=== PATIENT | female | born 1975 ===

== ENCOUNTER 2020-08-27 08:40 | Emergency (ER) | payer MEDICAID, SELFPAY ==
[2020-08-27 09:30] VITALS: BP 128/75; PULSE 89; RESP 16; TEMP 36.7; O2SAT 100; BMI 27.6
--- NOTE | 2020-08-27 09:42 | CT_ITS ---
EXAMINATION: CT ABDOMEN AND PELVIS WITH CONTRAST CLINICAL INFORMATION: Right upper quadrant abdominal pain COMPARISON: CT of the abdomen and pelvis 10/17/2018 TECHNIQUE: Multidetector volumetric images were obtained from the superior aspect of the liver through the pubic symphysis following administration 85 mL of Omnipaque 350 intravenous contrast. Sagittal and coronal reformatted images were obtained on the technologist's workstation. Oral contrast: No This CT examination was performed using dose optimization techniques as appropriate, variously including the following: *Automated exposure control *Adjustment of mA and/or kV according to patient size (this includes techniques or standardized protocols for targeted exams where dose is matched to indication/reason for exam; i.e. extremities or head) *Use of iterative reconstruction technique DLP: 526 mGy-cm FINDINGS: LUNG BASES: The visualized lung bases are unremarkable. LIVER, GALLBLADDER, AND BILIARY TREE: The liver is normal in size, shape, and attenuation. No focal hepatic lesion or biliary ductal dilatation is present. The gallbladder is unremarkable with no evidence of radiopaque gallstones, gallbladder wall thickening, or obvious pericholecystic inflammatory changes. PANCREAS: Unremarkable. SPLEEN: Unremarkable. ADRENAL GLANDS: Again demonstrated are 2 fat-containing left adrenal nodules, one of which measures 2.1 cm and the other measures 1.8 cm, similar in appearance to the prior study. The right adrenal gland is normal. KIDNEYS AND URETERS: The kidneys are normal in size, shape, and attenuation. No hydronephrosis or hydroureter. No perinephric stranding. Again demonstrated are nonobstructive calculi in the superior pole of the right kidney measuring up to 0.3 cm, similar to the prior study. Previously seen low-density lesion in the upper pole of the right kidney is not as conspicuous on the current study. BLADDER: Unremarkable. GASTROINTESTINAL TRACT: The small and large bowel are unremarkable. The appendix is not visualized, but there are no pericecal inflammatory changes. ABDOMINAL WALL: No significant hernia is appreciated. Neurostimulator device over the left posterior flank with leads in place. LYMPH NODES: Normal. VASCULAR: Normal caliber of the abdominal aorta. Mild scattered atherosclerotic calcifications. PELVIC VISCERA: The uterus is surgically absent. 2.2 cm left ovarian cyst again demonstrated are small right ovarian cysts that measure up to 1.5 cm. OSSEOUS STRUCTURES: No acute or suspicious osseous abnormality. CT/CT abdomen pelvis w con IMPRESSION: 1. No acute process within the abdomen or pelvis. 2. Stable appearance of left adrenal lipid rich adenomas. 3. Again demonstrated are bilateral ovarian cysts, which can be evaluated by pelvic ultrasound if clinically indicated. 4. Redemonstration of nonobstructive right renal calculi measuring up to 0.3 cm. No hydronephrosis.
--- NOTE | 2020-08-27 09:45 | ED.ABDPAIN ---
HPI - Abdominal Pain General Chief Complaint: Abdominal Pain Stated Complaint: pain on rt side Time Seen by Provider: 08/27/20 09:37 Source: patient Mode of arrival: ambulatory Limitations: language barrier (Albanian-speaking) History of Present Illness HPI narrative: 44yoF c PMHx of uterine cancer, kidney stones, asthma and depression c a PSHx of appendectomy presenting to the ED c c/o right upper quadrant abdominal pain that started suddenly while she was sleeping c associated Nausea. Reports she had a bowel movement denies any diarrhea. Denies fevers, chills, chest pain, shortness of breath, vomiting, radiation of the pain, vaginal discharge, hematuria or dysuria or any other symptoms complaints or concerns at this time. Related Data Previous Rx's Medication Instructions Recorded ibuprofen 800 mg PO Q8H PRN #14 tab 08/27/20 ondansetron HCl [Zofran] 4 mg PO Q8H PRN #10 tab 08/27/20 oxycodone-acetaminophen [Percocet] 1 tab PO Q6H PRN #10 tab 08/27/20 Allergies Allergy/AdvReac Type Severity Reaction Status Date / Time Penicillins [PENICILLINS] Allergy Severe DIFFICULTY Unverified 06/01/20 18:09 BREATHING Sulfa (Sulfonamide Allergy Severe DIFFICULTY Unverified 06/01/20 18:09 Antibiotics) BREATHING [SULFA (SULFONAMIDE ANTIBIOTICS)] latex [LATEX] Allergy Intermediate RASH Unverified 06/01/20 18:09 penicillin V Allergy Unknown Verified 05/31/19 00:00 vancomycin [VANCOMYCIN] Allergy Unknown UNKNOWN Unverified 06/01/20 18:09 LATEX Allergy Unknown Uncoded 05/31/19 00:00 Review of Systems Review of Systems Constitutional : No Weight loss, No Fever, No Chills, No Night Sweats, No Fatigue, NoMalaise ENT/Mouth: No ear pain, No sore throat, No Difficulty swallowing Cardiovascular : No Chest Pain, No SOB, No Dyspnea on Exertion, No Orthopnea, NoEdema, No Palpitations Respiratory : No Cough, No Sputum, No Wheezing, No Dyspnea Gastrointestinal : + Nausea, No Vomiting, No Diarrhea, + abdominal Pain, No Hematochezia, No Melena Genitourinary : No irregular bleeding, No Dysuria, No Urinary Frequency, No Hematuria,No Urinary Incontinence, No Urgency, No Flank Pain Musculoskeletal : No joint pain, No Myalgias, No Joint Swelling Skin : No Skin Lesions, No rash Neuro : No Weakness, No Numbness, No Paresthesias, No Loss of Consciousness, NoDizziness, No Headache Psych : No Social Issues, Heme/Lymph: No Bruising, No Bleeding,No Lymphadenopathy Endocrine : No Polyuria, No Polydipsia, No Temperature Intolerance Yes all other systems are reviewed and are negative Physical Exam Vital Signs: Vital Signs: Last Vital Signs Temp 98.1 F 08/27/20 09:30 Pulse 89 08/27/20 09:30 Resp 16 08/27/20 13:16 BP 128/75 08/27/20 09:30 Pulse Ox 100 08/27/20 09:30 Body Mass Index 27.6 vital signs have been reviewed as normal and appeared to be correct. Blood pressure normal. Heart rate normal. Respiration rate normal. Temperature normal. Oxygen saturation normal. Appearance: Alert. Oriented X3. No acute distress. Head: Normal external exam. Normocephalic. Eyes: PERRLA. EOMI. Conjunctiva and sclera normal. Eyelids normal. ENT: Pharynx normal. Uvula midline. Moist mucous membranes. Neck: Normal inspection. Neck supple. FROM. No adenopathy. No meningeal signs. CVS: Normal heart rate and rhythm. Heart sound normal. No murmurs noted. Pulses normal throughout. Respiratory: No respiratory distress. Painless inspiration. Breath sounds normal. No wheezes/rales/rhonchi noted. Chest nontender. No accessory muscle usage noted or decreased air movement noted. Abdomen: Soft and TTP at RUQ c guarding. No rigidity. Negative Parham sign. Bowel sounds normal in all 4 quadrants. No distention noted. No organomegaly noted. No visible injury noted. No rebound tenderness. Negative Rovsing sign. Negative obturator's sign. Negative psoas sign. Back: No CVA tenderness. Full range of motion noted. Skin: Skin warm and dry. Normal skin color. Normal skin turgor. No rashes/lesions/lacerations noted. Extremities: Extremities exhibit normal range of motion. Extremities nontender. Neuro: Oriented X 3. No motor deficit. No sensory deficit. Reflexes normal. Course Course Course Narrative: 9:45am - 44yoF c PMHx of uterine cancer, kidney stones, asthma and depression c a PSHx of appendectomy presenting to the ED c c/o right upper quadrant abdominal pain that started suddenly while she was sleeping c associated Nausea. - Plan: Labs, CT scan of abd/pelvis c IV contrast, UA. Provide IVF's, zofran and toradol then re-evaluate Reevaluation(s) Reevaluation #1: - Patient mild elevation in white blood cell count at 13,000. Otherwise all other labs are within normal limits. Of abdomen and pelvis with IV contrast revealed chronic changes no acute processes noted. Therefore an ultrasound obtained of the abdomen and negative for any acute processes. Unknown cause of the patient's abdominal pain. Will DC home with symptomatic treatment along with instructions follow-up with primary care provider and to return if any new or worsening symptoms. Patient understands agrees the plan. Time: 14:13 [facility] - Abdominal Pain Medical Records Attestation: I reviewed the patient's medical records. Lab Data Attestation: I reviewed the patient's lab results. Result diagrams: 08/27/20 10:24 08/27/20 10:24 Labs: Lab Results 08/27/20 08/27/20 08/27/20 Range/Units 10:24 10:24 10:24 WBC 13.7 H (4.8-10.8) X10*3/uL RBC 4.63 (4.20-5.50) X10*6/uL Hgb 14.0 (12.0-16.0) g/dl Hct 41.5 (37-47) % MCV 89.6 (80-98) fL MCH 30.2 (27.0-33.0) pg MCHC 33.7 (31.0-35.0) g/dl RDW 12.3 (11.0-16.0) % Plt Count 289 (160-400) X10*3/uL MPV 9.0 L (9.4-12.3) fL Immature Gran % (Auto) 0.4 (0.0-0.4) % Neut % (Auto) 59.6 (45-73) % Lymph % (Auto) 34.2 (20-40) % [place] % (Auto) 4.2 (2-11) % Eos % (Auto) 1.1 (0-4) % Baso % (Auto) 0.5 (0-2) % Lymph # (Auto) 4.7 (1.2-4.9) X10*3/uL [place] # (Auto) 0.6 (0.1-1.2) X10*3/uL Eos # (Auto) 0.2 (0.0-0.4) X10*3/uL Baso # (Auto) 0.1 (0.0-0.2) X10*3/uL Abs Immat Gran (auto) 0.05 H (0.00-0.03) X10*3/uL Absolute Neuts (auto) 8.2 (2.0-8.3) X10*3/uL Absolute Nucleated RBC 0.000 (0.0-0.012) X10*3/uL Nucleated RBC % (auto) 0.0 (0.0-0.2) /100WBC PT 13.0 (10.8-13.0) SEC INR 1.1 (0.9-1.1) Sodium 138 (135-145) mmol/L Potassium 4.5 (3.3-5.1) mmol/l Chloride 106 (96-108) mmol/L Carbon Dioxide 25 (22-29) mmol/L Anion Gap 12 (12-20) BUN 10 (9-16) mg/dL Creatinine 0.66 (0.5-1.4) mg/dL Estim Creat Clear Calc 103.6 Estimated GFR > 60 Random Glucose 101 (60-115) mg/dL Calcium 8.9 (8.4-10.2) mg/dL Magnesium 2.0 (1.6-2.6) mg/dL Total Bilirubin 0.3 (0.0-1.0) mg/dL Direct Bilirubin < 0.2 (0.0-0.5) mg/dL AST 16 (5-31) U/L ALT 12 (0-31) U/L Alkaline Phosphatase 75 (39-117) U/L Total Protein 7.2 (6.5-8.0) g/dL Albumin 4.3 (3.5-5.0) g/dL Lipase 28 (8-78) U/L Ethyl Alcohol mg/dL 12// Range/Units 10:24 WBC (4.8-10.8) X10*3/uL RBC (4.20-5.50) X10*6/uL Hgb (12.0-16.0) g/dl Hct (37-47) % MCV (80-98) fL MCH (27.0-33.0) pg MCHC (31.0-35.0) g/dl RDW (11.0-16.0) % Plt Count (160-400) X10*3/uL MPV (9.4-12.3) fL Immature Gran % (Auto) (0.0-0.4) % Neut % (Auto) (45-73) % Lymph % (Auto) (20-40) % [place] % (Auto) (2-11) % Eos % (Auto) (0-4) % Baso % (Auto) (0-2) % Lymph # (Auto) (1.2-4.9) X10*3/uL [place] # (Auto) (0.1-1.2) X10*3/uL Eos # (Auto) (0.0-0.4) X10*3/uL Baso # (Auto) (0.0-0.2) X10*3/uL Abs Immat Gran (auto) (0.00-0.03) X10*3/uL Absolute Neuts (auto) (2.0-8.3) X10*3/uL Absolute Nucleated RBC (0.0-0.012) X10*3/uL Nucleated RBC % (auto) (0.0-0.2) /100WBC PT (10.8-13.0) SEC INR (0.9-1.1) Sodium (135-145) mmol/L Potassium (3.3-5.1) mmol/l Chloride (96-108) mmol/L Carbon Dioxide (22-29) mmol/L Anion Gap (12-20) BUN (9-16) mg/dL Creatinine (0.5-1.4) mg/dL Estim Creat Clear Calc Estimated GFR Random Glucose (60-115) mg/dL Calcium (8.4-10.2) mg/dL Magnesium (1.6-2.6) mg/dL Total Bilirubin (0.0-1.0) mg/dL Direct Bilirubin (0.0-0.5) mg/dL AST (5-31) U/L ALT (0-31) U/L Alkaline Phosphatase (39-117) U/L Total Protein (6.5-8.0) g/dL Albumin (3.5-5.0) g/dL Lipase (8-78) U/L Ethyl Alcohol < 10 mg/dL Imaging Data CT scan - abdomen: Attestation: I personally reviewed and interpreted this imaging study as follows: Radiologist's impression: IMPRESSION: 1. No acute process within the abdomen or pelvis. 2. Stable appearance of left adrenal lipid rich adenomas. 3. Again demonstrated are bilateral ovarian cysts, which can be evaluated by pelvic ultrasound if clinically indicated. 4. Redemonstration of nonobstructive right renal calculi measuring up to 0.3 cm. No hydronephrosis. US - abdomen: Attestation: I personally reviewed and interpreted this imaging study as follows: Radiologist's impression: IMPRESSION: Normal appearance of the gallbladder and biliary tree. No gallstones. Nonobstructive calculus in the upper pole of the right kidney. No hydronephrosis. Discharge Plan Discharge Clinical Impression: Abdominal pain Patient Disposition: Home, Self-Care Instructions: Abdominal Pain (ED) Prescriptions: New ondansetron HCl [Zofran] 4 mg tablet 4 mg PO Q8H PRN (Reason: nausea and vomiting) Qty: 10 RF: 0 oxycodone-acetaminophen [Percocet] 5-325 mg tablet 1 tab PO Q6H PRN (Reason: pain) Qty: 10 RF: 0 ibuprofen 800 mg tablet 800 mg PO Q8H PRN (Reason: pain) Qty: 14 RF: 0 Referrals: Luis Alberto Reece MD [Primary Care Provider] - 2 days Print Language: Albanian [facility] Past Medical History Attestation statement: The following information was validated with the patient. Social History Social History Alcohol intake: never Smoked in Last 30 Days: No Use of substances other than those prescribed or required for medical reasons: No Advance Directives: No Advance Directives Information Provided: No
[2020-08-27] MEDS: ondansetron HCL 4 MG/2 ML VIAL IVPUSH (10:29)
[2020-08-27] MEDS: Ketorolac Tromethamine 15 MG/ML VIAL 30 MG IV (10:29)
[2020-08-27 10:31] LABS: Basophils Absolute Auto 0.1 X10*3/uL (0.0-0.2); Basophils Percent Auto 0.5 % (0-2); Eosinophils Absolute Auto 0.2 X10*3/uL (0.0-0.4); Eosinophils Percent Auto 1.1 % (0-4); Hematocrit 41.5 % (37-47); Imm Gran Abs Auto 0.05 X10*3/uL (0.00-0.03); Imm Gran Pct Auto 0.4 % (0.0-0.4); Lymphocytes Absolute Auto 4.7 X10*3/uL (1.2-4.9); Lymphocytes Percent Auto 34.2 % (20-40); Mean Corpuscular HGB Conc 33.7 g/dl (31.0-35.0); Mean Corpuscular Hemoglobin 30.2 pg (27.0-33.0); Mean Corpuscular Volume 89.6 fL (80-98); Monocytes Absolute Auto 0.6 X10*3/uL (0.1-1.2); Monocytes Percent Auto 4.2 % (2-11); Neutrophils Absolute Auto 8.2 X10*3/uL (2.0-8.3); Neutrophils Percent Auto 59.6 % (45-73); Platelet Count 289 X10*3/uL (160-400); Red Blood Count 4.63 X10*6/uL (4.20-5.50); Red Cell Distribution Width 12.3 % (11.0-16.0); White Blood Count 13.7 X10*3/uL (4.8-10.8)
[2020-08-27 10:32] LABS: MANUAL DIFF FLAG NO
[2020-08-27 10:38] LABS: INTERNATIONAL NORM RATIO 1.1 (0.9-1.1)
[2020-08-27 10:53] LABS: Ethanol < 10 mg/dL
[2020-08-27 10:56] LABS: Alanine Aminotransferase 12 U/L (0-31); Albumin Level 4.3 g/dL (3.5-5.0); Alkaline Phosphatase 75 U/L (39-117); Anion Gap 12 (12-20); Aspartate Amino Transferase 16 U/L (5-31); Bilirubin Direct < 0.2 mg/dL (0.0-0.5); Bilirubin Total 0.3 mg/dL (0.0-1.0); Blood Urea Nitrogen 10 mg/dL (9-16); Calcium 8.9 mg/dL (8.4-10.2); Carbon Dioxide 25 mmol/L (22-29); Chloride 106 mmol/L (96-108); Creatinine Clr Calc Pharmacy 103.6; Estimated Glomerular Filt Rate > 60; Glucose Random 101 mg/dL (60-115); Lipase 28 U/L (8-78); Potassium 4.5 mmol/l (3.3-5.1); Sodium 138 mmol/L (135-145); Total Protein 7.2 g/dL (6.5-8.0)
--- NOTE | 2020-08-27 12:36 | US_ITS ---
EXAMINATION: US ABDOMEN LIMITED CLINICAL INFORMATION: Right upper quadrant abdominal pain. COMPARISON: CT of the abdomen and pelvis 08/27/2020 TECHNIQUE: Real-time imaging of the right upper quadrant abdominal viscera. FINDINGS: PANCREAS: Normal. LIVER: Normal. The liver is normal in size. The liver contour is normal. Parenchymal echogenicity is normal. No focal hepatic lesion. There is no intrahepatic biliary duct dilatation seen. GALLBLADDER: Normal. The gallbladder is physiologically distended without evidence of stones, sludge, polyps, wall thickening or pericholecystic fluid. COMMON BILE DUCT: Normal in caliber measuring 0.4 cm in diameter. RIGHT KIDNEY: Nonobstructive calculus in the upper pole measuring up to 0.4 cm. No hydronephrosis. No focal parenchymal lesions. The kidney measures 12 cm in maximum dimension. FREE FLUID: None. US/US abdomen limited IMPRESSION: Normal appearance of the gallbladder and biliary tree. No gallstones. Nonobstructive calculus in the upper pole of the right kidney. No hydronephrosis.
[2020-08-27 13:16] VITALS: RESP 16
[2020-08-27] MEDS: oxyCODONE HCl Immed Release 5 MG TABLET PO (14:07)
== END 2020-08-27 14:33 | disposition home or self-care (01) ==
PROVIDERS: Physician Assistant Medical; Emergency Provider Emergency Medicine; PCP Internal Medicine
DX: R10.11 Right upper quadrant pain (principal); J45.909 Unspecified asthma, uncomplicated; F33.1 Major depressive disorder, recurrent, moderate; R11.0 Nausea; Z79.899 Other long term (current) drug therapy
CPT/HCPCS: 36415; 74177; 76705; 80048; 80076; 80320; 83690; 83735; 85025; 85610; 96361; 96374; 96375; 99284; J1885; J2405

== ENCOUNTER 2020-08-29 14:53 | Inpatient (IN) | payer MEDICAID, OTHER, SELFPAY ==
[2020-08-29 14:59] VITALS: BP 143/82; PULSE 117; RESP 20; TEMP 36.8; O2SAT 97; BMI 23.5
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
[2020-08-29] MEDS: LORazepam 1 MG TABLET 2 MG PO (16:54)
[2020-08-29] MEDS: Omeprazole 40 MG CAPSULE.DR PO (16:55)
[2020-08-29] MEDS: Dicyclomine HCl 10 MG CAPSULE 20 MG PO (17:01)
[2020-08-29] MEDS: Magnesium Hydrox/Alum Hydrox 30 ML ORAL.SUSP PO (17:04)
[2020-08-29] MEDS: Lidocaine HCl Viscous 2 % 15 ML SOLUTION MUCOUS MEM (17:04)
--- NOTE | 2020-08-29 17:48 | PC.NURSE ---
Pt tearful at times- currently on the telephone. Per Care team, brief consult not indicated, requesting to have [facility] complete full evaluation when medically cleared.
--- NOTE | 2020-08-29 17:53 | PC.NURSE ---
Dr Whitlock aware that pt does not have IV at this time and that CARE team is requesting to have pt evaluated by [facility]. If pt is able to take PO, no IV needed at this time.
[2020-08-29 18:00] VITALS: RESP 18
[2020-08-29 18:27] LABS: Basophils Absolute Auto 0.1 X10*3/uL (0.0-0.2); Basophils Percent Auto 0.7 % (0-2); Eosinophils Absolute Auto 0.2 X10*3/uL (0.0-0.4); Eosinophils Percent Auto 1.6 % (0-4); Hematocrit 43.4 % (37-47); Hemoglobin 14.7 g/dl (12.0-16.0); Imm Gran Abs Auto 0.04 X10*3/uL (0.00-0.03); Imm Gran Pct Auto 0.4 % (0.0-0.4); Lymphocytes Absolute Auto 4.3 X10*3/uL (1.2-4.9); Lymphocytes Percent Auto 39.9 % (20-40); MANUAL DIFF FLAG NO; Mean Corpuscular HGB Conc 33.9 g/dl (31.0-35.0); Mean Corpuscular Hemoglobin 30.4 pg (27.0-33.0); Mean Corpuscular Volume 89.9 fL (80-98); Mean Platelet Volume 9.2 fL (9.4-12.3); Monocytes Absolute Auto 0.6 X10*3/uL (0.1-1.2); Monocytes Percent Auto 5.3 % (2-11); Neutrophils Absolute Auto 5.6 X10*3/uL (2.0-8.3); Neutrophils Percent Auto 52.1 % (45-73); Platelet Count 313 X10*3/uL (160-400); Red Blood Count 4.83 X10*6/uL (4.20-5.50); Red Cell Distribution Width 12.1 % (11.0-16.0); White Blood Count 10.8 X10*3/uL (4.8-10.8)
[2020-08-29 18:48] LABS: Alanine Aminotransferase 12 U/L (0-31); Albumin Level 4.8 g/dL (3.5-5.0); Alkaline Phosphatase 85 U/L (39-117); Anion Gap 12 (12-20); Aspartate Amino Transferase 17 U/L (5-31); Bilirubin Total 0.3 mg/dL (0.0-1.0); Blood Urea Nitrogen 13 mg/dL (9-16); Calcium 9.1 mg/dL (8.4-10.2); Carbon Dioxide 27 mmol/L (22-29); Chloride 102 mmol/L (96-108); Creatinine Clr Calc Pharmacy 103.7; Estimated Glomerular Filt Rate > 60; Glucose Random 81 mg/dL (60-115); Potassium 4.4 mmol/l (3.3-5.1); Sodium 137 mmol/L (135-145); Total Protein 7.9 g/dL (6.5-8.0)
[2020-08-29 18:50] LABS: Alanine Aminotransferase 12 U/L (0-31); Albumin Level 4.8 g/dL (3.5-5.0); Alkaline Phosphatase 83 U/L (39-117); Anion Gap 12 (12-20); Aspartate Amino Transferase 17 U/L (5-31); Bilirubin Direct < 0.2 mg/dL (0.0-0.5); Bilirubin Total 0.3 mg/dL (0.0-1.0); Blood Urea Nitrogen 12 mg/dL (9-16); Calcium 9.2 mg/dL (8.4-10.2); Carbon Dioxide 28 mmol/L (22-29); Chloride 103 mmol/L (96-108); Creatinine Clr Calc Pharmacy 105.2; Estimated Glomerular Filt Rate > 60; Glucose Random 82 mg/dL (60-115); Lipase 27 U/L (8-78); Potassium 4.5 mmol/l (3.3-5.1); Sodium 138 mmol/L (135-145); Total Protein 7.9 g/dL (6.5-8.0)
--- NOTE | 2020-08-29 19:44 | MHC.CARE ---
CARE team followed up with N. They report they have a clinician available and will send them for evaluation. CARE team made N aware that patient needs interpreter and translator or swedish-speaking clinician.
[2020-08-29 21:01] VITALS: BP 136/83; PULSE 110; RESP 20; TEMP 37.1; O2SAT 97
[2020-08-29 21:25] LABS: Glucose Urine UA NEG (NEG); Leukocyte Esterase Urine NEG (NEG); Nitrite Urine NEG (NEG); PH 5.5 (5.0-8.0); Specific Gravity - Urine >= 1.030 (1.005-1.025); Urine Blood NEG (NEG); Urine Ketones NEG (NEG); Urine Protein NEG (NEG-TRACE)
[2020-08-29 21:26] LABS: Appearance Urine CLEAR; Color Urine DARK YELLOW
[2020-08-29 21:45] LABS: Amphetamine Screen Urine Not Detected (Not Detect); Barbiturates, Urine Not Detected (Not Detect); Benzodiazepines Screen Urine Not Detected (Not Detect); Cannabinoid Screen Urine POSITIVE (Not Detect); Cocaine Screen Urine POSITIVE (Not Detect); Opiate Screen Urine Not Detected (Not Detect); Phencyclidine Screen Urine Not Detected (Not Detect)
[2020-08-30] MEDS: Nicotine 14 MG PATCH.TD24 TRANSDERMA ×2 (00:23→19:32)
[2020-08-30 00:26] VITALS: BP 105/70; PULSE 88; RESP 16; TEMP 36.8; O2SAT 97
--- NOTE | 2020-08-30 00:39 | PC.NURSE ---
Patient assessment completed by the N, patient is section 12 in-patient bed search, patient and provider aware, swabbed for covid/sent to lab/result pending, patient back to bed, appears resting, no dustres observed/reported, will continue to monitor.
[2020-08-30 00:55] LABS: IDNOW Serial# 9DD0AD1C
[2020-08-30 00:56] LABS: COVID-19 Test Negative (Negative)
[2020-08-30 06:23] VITALS: BP 143/86; PULSE 110; RESP 17; TEMP 36.7; O2SAT 97
--- NOTE | 2020-08-30 07:26 | PC.NURSE ---
report taken from nirav rn pt is ambulating around nursing station, conversing appropriately w staff. in milieu talking to family on telephone. pt sts i take medicine before i eat because of my stomach ulcer . no med rec hx reflecting any regular med schedule.
--- NOTE | 2020-08-30 07:44 | PC.NURSE ---
pt asking for prn zofran, provided. medicated per emar. pt now eating breakfast.
[2020-08-30 10:57] VITALS: BP 122/83; PULSE 111; TEMP 36.7; O2SAT 97
[2020-08-30] MEDS: LORazepam 1 MG TABLET 2 MG PO ×2 (11:27→19:33)
--- NOTE | 2020-08-30 11:53 | PC.NURSE ---
information release form signed by pt so that pharmacy can get medication information.
--- NOTE | 2020-08-30 12:09 | PC.NURSE ---
given prn for anziety. pt now tearfully conversing on phone.
[2020-08-30 16:43] VITALS: BP 135/91; PULSE 117; RESP 20; TEMP 36.1; O2SAT 97
--- NOTE | 2020-08-30 19:05 | PC.NURSE ---
Report received. PT is talking on the phone. Calm and cooperative. Inpatient bed search in progress
--- NOTE | 2020-08-30 19:24 | ECG_ITS ---
Test Reason : DRUG USE Blood Pressure : / mmHG Vent. Rate : 092 BPM Atrial Rate : 092 BPM P-R Int : 120 ms QRS Dur : 082 ms QT Int : 360 ms P-R-T Axes : 058 041 045 degrees QTc Int : 445 ms Normal sinus rhythm Possible Left atrial enlargement Borderline ECG When compared with ECG of 01-JUN-2019 19:10, No significant change was found Referred By: Troy Amaya Electronically Signed By:Erickson Marshall
--- NOTE | 2020-08-30 20:03 | PC.NURSE ---
PT asked why she needed an EKG before going to [facility]. Nurse explained to the PT that it was required because there were traces of cocaine in her system. PT immediately questioned the presence of cocaine in her system. PT is very adamant that she has never used cocaine. PT is very upset and anxiety over this news. PT is on the phone talking to someone at this time.
--- NOTE | 2020-08-30 21:53 | MHC.CARE ---
CARE team met with patient in [facility] pod to facilitate transfer/admission to with the assistance of an used car make ready worker. Patient is being admitted voluntarily and signed CV. Patient expressed concern over her belongings (in particular her laptop, jewelry, new clothes with tags that she reports cannot be washed, and access to her phone to be able to contact her ill mother). CARE team gave brief overview of policies on belongings and electronics but directed patient to follow up with staff. CARE team updated on patient's concerns and on the presence of patient's laptop in her belongings. Patient also expressed frustration at the results of her urinalysis which were a surprise to her and per her report are inaccurate.
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
[2020-08-30] MEDS: Docusate Sodium 100 MG CAPSULE PO (23:05)
[2020-08-30] MEDS: OLANZapine 10 MG TABLET 20 MG PO (23:05)
[2020-08-30] MEDS: Mirtazapine 15 MG TABLET PO (23:05)
[2020-08-30] MEDS: Atorvastatin Calcium 20 MG TABLET PO (23:05)
[2020-08-31 06:15] VITALS: BP 148/79; PULSE 94; RESP 16; TEMP 37.1; O2SAT 97
[2020-08-31 08:19] LABS: Red Blood Count 4.83 X10*6/uL (4.20-5.50); White Blood Count 11.2 X10*3/uL (4.8-10.8)
[2020-08-31 08:20] LABS: Basophils Absolute Auto 0.1 X10*3/uL (0.0-0.2); Basophils Percent Auto 0.7 % (0-2); Eosinophils Absolute Auto 0.3 X10*3/uL (0.0-0.4); Eosinophils Percent Auto 2.2 % (0-4); Hematocrit 43.5 % (37-47); Hemoglobin 14.9 g/dl (12.0-16.0); Imm Gran Abs Auto 0.03 X10*3/uL (0.00-0.03); Imm Gran Pct Auto 0.3 % (0.0-0.4); Lymphocytes Absolute Auto 5.9 X10*3/uL (1.2-4.9); Lymphocytes Percent Auto 52.9 % (20-40); Mean Corpuscular HGB Conc 34.3 g/dl (31.0-35.0); Mean Corpuscular Hemoglobin 30.8 pg (27.0-33.0); Mean Corpuscular Volume 90.1 fL (80-98); Mean Platelet Volume 9.1 fL (9.4-12.3); Monocytes Absolute Auto 0.6 X10*3/uL (0.1-1.2); Neutrophils Absolute Auto 4.4 X10*3/uL (2.0-8.3); Neutrophils Percent Auto 38.9 % (45-73); Platelet Count 296 X10*3/uL (160-400); Red Cell Distribution Width 11.9 % (11.0-16.0); SCAN SMEAR FLAG 1
[2020-08-31 08:21] LABS: MANUAL DIFF FLAG NO
[2020-08-31 08:45] LABS: Alanine Aminotransferase 11 U/L (0-31); Albumin Level 4.4 g/dL (3.5-5.0); Alkaline Phosphatase 76 U/L (39-117); Anion Gap 13 (12-20); Aspartate Amino Transferase 15 U/L (5-31); Bilirubin Total 0.4 mg/dL (0.0-1.0); Blood Urea Nitrogen 17 mg/dL (9-16); Calcium 9.1 mg/dL (8.4-10.2); Carbon Dioxide 24 mmol/L (22-29); Chloride 105 mmol/L (96-108); Creatinine Clr Calc Pharmacy 102.2; Estimated Glomerular Filt Rate > 60; Glucose Fasting 98 mg/dL (60-99); Potassium 4.2 mmol/l (3.3-5.1); Sodium 138 mmol/L (135-145); Total Protein 7.4 g/dL (6.5-8.0)
[2020-08-31] MEDS: Aspirin Enteric Coated 81 MG TABLET.DR PO (08:52)
[2020-08-31] MEDS: Docusate Sodium 100 MG CAPSULE PO ×2 (08:52→21:58)
[2020-08-31] MEDS: Ascorbic Acid 500 MG TABLET 1000 MG PO (08:52)
[2020-08-31] MEDS: Nicotine 14 MG PATCH.TD24 TRANSDERMA (08:52)
[2020-08-31] MEDS: DULoxetine HCl 20 MG CAPSULE.DR PO (08:53)
[2020-08-31] MEDS: Omeprazole 20 MG CAPSULE.DR PO (08:53)
[2020-08-31 09:05] LABS: Free T4 (Free Thyroxine) 0.95 ng/dL (0.71-1.85); Thyroid Stimulating Hormone 1.97 uIU/mL (0.32-4.0)
[2020-08-31] MEDS: Ibuprofen 800 MG TABLET PO ×2 (12:29→19:51)
[2020-08-31] MEDS: Clotrimazole 1 % Cream 15 GM TUBE 1 APPL TOPICAL (12:52)
[2020-08-31 19:10] VITALS: BP 160/94; PULSE 105; TEMP 37
[2020-08-31] MEDS: LORazepam 1 MG TABLET 2 MG PO (19:51)
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
[2020-08-31] MEDS: Atorvastatin Calcium 20 MG TABLET PO (21:58)
[2020-08-31] MEDS: Mirtazapine 15 MG TABLET PO (21:58)
[2020-08-31] MEDS: OLANZapine 10 MG TABLET 20 MG PO (21:58)
[2020-08-31 22:06] VITALS: BP 135/89; PULSE 86; TEMP 36.9
[2020-09-01 06:00] VITALS: BP 147/88; PULSE 84; RESP 18; TEMP 36.6; O2SAT 97
[2020-09-01] MEDS: Omeprazole 20 MG CAPSULE.DR PO (06:36)
[2020-09-01 08:42] VITALS: BP 147/88; PULSE 84; TEMP 36.8; O2SAT 97
[2020-09-01] MEDS: Docusate Sodium 100 MG CAPSULE PO ×2 (09:00→19:57)
[2020-09-01] MEDS: DULoxetine HCl 20 MG CAPSULE.DR PO (09:00)
[2020-09-01] MEDS: Aspirin Enteric Coated 81 MG TABLET.DR PO (09:00)
[2020-09-01] MEDS: OXcarbazepine 150 MG TABLET PO ×2 (09:01→19:57)
[2020-09-01] MEDS: Ascorbic Acid 500 MG TABLET 1000 MG PO (09:01)
[2020-09-01] MEDS: Nicotine 14 MG PATCH.TD24 TRANSDERMA (09:02)
[2020-09-01] MEDS: Clotrimazole 1 % Cream 15 GM TUBE 1 APPL TOPICAL ×2 (09:03→19:57)
[2020-09-01 12:00] VITALS: BP 139/89; PULSE 98
[2020-09-01] MEDS: LORazepam 1 MG TABLET 2 MG PO ×2 (13:11→20:03)
[2020-09-01 16:00] VITALS: BP 137/77; PULSE 97; TEMP 37
[2020-09-01] MEDS: Ibuprofen 800 MG TABLET PO (16:30)
[2020-09-01 18:00] VITALS: BP 137/77; PULSE 97; TEMP 37
[2020-09-01] MEDS: Mirtazapine 15 MG TABLET PO (19:57)
[2020-09-01] MEDS: Atorvastatin Calcium 20 MG TABLET PO (19:57)
[2020-09-01] MEDS: OLANZapine 10 MG TABLET 20 MG PO (19:57)
[2020-09-01 20:00] VITALS: BP 159/81; PULSE 92; TEMP 37
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
[2020-09-02 06:00] VITALS: BP 137/94; PULSE 94; TEMP 37.5
[2020-09-02] MEDS: Aspirin Enteric Coated 81 MG TABLET.DR PO (08:25)
[2020-09-02] MEDS: Docusate Sodium 100 MG CAPSULE PO ×2 (08:25→21:02)
[2020-09-02] MEDS: OXcarbazepine 300 MG TABLET PO ×2 (08:25→21:02)
[2020-09-02] MEDS: Ascorbic Acid 500 MG TABLET 1000 MG PO (08:25)
[2020-09-02] MEDS: Omeprazole 20 MG CAPSULE.DR PO (08:25)
[2020-09-02] MEDS: Clotrimazole 1 % Cream 15 GM TUBE 1 APPL TOPICAL ×2 (08:27→22:33)
[2020-09-02] MEDS: Nicotine 21 MG PATCH.TD24 TRANSDERMA (08:51)
[2020-09-02 09:05] LABS: Alanine Aminotransferase 10 U/L (0-31); Albumin Level 4.3 g/dL (3.5-5.0); Alkaline Phosphatase 76 U/L (39-117); Anion Gap 11 (12-20); Aspartate Amino Transferase 15 U/L (5-31); Bilirubin Total 0.5 mg/dL (0.0-1.0); Blood Urea Nitrogen 15 mg/dL (9-16); Calcium 9.2 mg/dL (8.4-10.2); Carbon Dioxide 24 mmol/L (22-29); Chloride 106 mmol/L (96-108); Cholesterol 216 mg/dL; Creatinine Clr Calc Pharmacy 105.2; Estimated Glomerular Filt Rate > 60; Glucose Fasting 100 mg/dL (60-99); HDL Cholesterol 48 mg/dL; LDL Cholesterol Calculated 141 mg/dl; Potassium 4.4 mmol/l (3.3-5.1); Sodium 137 mmol/L (135-145); Total Protein 7.3 g/dL (6.5-8.0); Triglycerides 139 mg/dL
[2020-09-02 09:27] LABS: TSH reflex Free T4 0.99 mIU/mL (0.32-4.0)
[2020-09-02 10:52] LABS: Reflex LDLD? No
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
[2020-09-02] MEDS: hydrOXYzine HCL 50 MG TABLET PO ×2 (14:23→18:39)
--- NOTE | 2020-09-02 16:01 | HO.PSYCHPN ---
Subjective Subjective Date of Service: 09/02/20 Reason For Visit: Depression, PTSD Interim History: patient still a little pressured and labile but calmer and more cooperative; feels better with Trileptal; sleeping better and eating better Review of Systems Review of Systems REVIEW OF SYSTEMS: Pertinent positives and negatives are stated above in the history. GEN: no fevers, chills, fatigue HEENT: no nasal congestion, sore throat, ear pain NEURO: no headache, dizziness, focal weakness PULM: no cough, shortness of breath CV: no chest pain, palpitations, LE edema ABD: Chronic abdominal pain, ++nausea no vomiting or, diarrhea : no dysuria, urgency, frequency SKIN: no rash ROS otherwise negative x 10 Mental Status Exam Mental Status Exam Patient Orientation: Person, Place, Time and Situation Level of Consciousness: Awake and Restless Patient Behavior: Appropriate, Talkative and Restless Mood Description: Depressed, Anxious, Labile and Apprehensive Affect Description: Constricted, Anxious and Labile Ability to Follow Directions: Good Speech Pattern: Clear and Perseverating Delusions: Not Present Thought Process: Distracted and Rumination Thought Content: positive for Preoccupation Depressive Symptoms: Increased Anxiety and Diff. Making Decisions Judgement: Fair Diagnostics Vital Signs (24Hr): Vital Signs - 24 hr 09/01/20 18:00 09/01/20 20:00 09/02/20 06:00 Temperature 98.6 F 98.6 F 99.5 F Pulse Rate 97 92 94 Blood Pressure 137/77 159/81 H 137/94 H Body Mass Index 23.5 Labs Results: 08/31/20 08:06 09/02/20 08:13 Labs: Laboratory Results - last 48 hr 09/02/20 08:13 Sodium 137 Potassium 4.4 Chloride 106 Carbon Dioxide 24 Anion Gap 11 L BUN 15 Creatinine 0.67 Estim Creat Clear Calc 105.2 Estimated GFR > 60 Fasting Glucose 100 H Calcium 9.2 Total Bilirubin 0.5 AST 15 ALT 10 Alkaline Phosphatase 76 Total Protein 7.3 Albumin 4.3 Triglycerides 139 Cholesterol 216 LDL Cholesterol, Calc 141 HDL Cholesterol 48 TSH 0.99 Medications Medications Current Medications Generic Name Dose Route Start Last Admin Trade Name Freq PRN Reason Stop Dose Admin Acetaminophen 650 mg 08/30/20 21:07 Acetaminophen 325 Mg Tablet PO Q6H PRN Headache/Pain Mild Scale (1-3) Al Hydroxide/Mg Hydroxide 30 ml 08/30/20 21:07 Magnesium Hydrox/Alum Hydrox 30 Ml Oral.Susp PO Q6H PRN Heartburn/Nausea Albuterol Sulfate 2 puff 08/30/20 18:43 Albuterol Sulfate 90 Mcg 8 Gm Inhaler INHALE Q4H PRN Shortness Of Breath Ascorbic Acid 1,000 mg 08/31/20 09:00 09/02/20 08:25 Ascorbic Acid 500 Mg Tablet PO 1,000 mg DAILY [facility] Administration Aspirin 81 mg 08/31/20 09:00 09/02/20 08:25 Aspirin Enteric Coated 81 Mg Tablet.Dr PO 81 mg DAILY [facility] Administration Atorvastatin Calcium 20 mg 08/30/20 21:00 09/01/20 19:57 Atorvastatin Calcium 20 Mg Tablet PO 20 mg BEDTIME [facility] Administration Clotrimazole 1 appl 08/30/20 21:00 09/02/20 08:27 Clotrimazole 1 % Cream 15 Gm Tube TOPICAL 1 appl BID [facility] Administration Docusate Sodium 100 mg 08/30/20 21:00 09/02/20 08:25 Docusate Sodium 100 Mg Capsule PO 100 mg BID [facility] Administration Hydroxyzine HCl 50 mg 08/30/20 18:48 09/02/20 14:23 Hydroxyzine Hcl 50 Mg Tablet PO 50 mg BID PRN Administration Anxiety Hydroxyzine HCl 25 mg 08/30/20 21:07 Hydroxyzine Hcl 25 Mg Tablet PO BEDTIME PRN Anxiety Ibuprofen 800 mg 08/30/20 18:43 09/01/20 16:30 Ibuprofen 800 Mg Tablet PO 800 mg Q8H PRN Administration Pain (Scale Score 1-3) Lorazepam 2 mg 08/30/20 11:09 09/01/20 20:03 Lorazepam 1 Mg Tablet PO 2 mg RQ6H PRN Administration anxiety/restlessness Magnesium Hydroxide 30 ml 08/30/20 21:07 Milk Of Magnesia 30 Ml Oral.Susp PO DAILY PRN Constipation Mirtazapine 15 mg 08/30/20 21:00 09/01/20 19:57 Mirtazapine 15 Mg Tablet PO 15 mg BEDTIME [facility] Administration Nicotine 21 mg 09/02/20 09:00 09/02/20 08:51 Nicotine 21 Mg Patch.Td24 TRANSDERMA 21 mg DAILY [facility] Administration Olanzapine 20 mg 08/30/20 21:00 09/01/20 19:57 Olanzapine 10 Mg Tablet PO 20 mg BEDTIME [facility] Administration Omeprazole 20 mg 08/31/20 06:30 09/02/20 08:25 Omeprazole 20 Mg Capsule.Dr PO 20 mg DAILY@0630 [facility] Administration Ondansetron HCl 4 mg 08/30/20 07:40 08/30/20 07:43 Ondansetron Odt 4 Mg Tab.Rapdis TRANSLINGU 4 mg TID PRN Administration Nausea and Vomiting Oxcarbazepine 300 mg 09/02/20 09:00 09/02/20 08:25 Oxcarbazepine 300 Mg Tablet PO 300 mg BID [facility] Administration Oxycodone HCl 1 mg 08/30/20 18:48 Oxycodone Hcl Immed Release 5 Mg Tablet PO Q6H PRN Pain (Scale Score 4-6) Trazodone HCl 50 mg 08/30/20 21:07 Trazodone Hcl 50 Mg Tablet PO BEDTIME PRN Insomnia Allergies Allergies Allergy/AdvReac Type Severity Reaction Status Date / Time Penicillins [PENICILLINS] Allergy Severe DIFFICULTY Unverified 06/01/20 18:09 BREATHING Sulfa (Sulfonamide Allergy Severe DIFFICULTY Unverified 06/01/20 18:09 Antibiotics) BREATHING [SULFA (SULFONAMIDE ANTIBIOTICS)] latex [LATEX] Allergy Intermediate RASH Unverified 06/01/20 18:09 penicillin V Allergy Unknown Verified 05/31/19 00:00 vancomycin [VANCOMYCIN] Allergy Unknown UNKNOWN Unverified 06/01/20 18:09 LATEX Allergy Unknown Uncoded 05/31/19 00:00 Assessment & Plan Assessment & Plan (1) Major depressive disorder, recurrent episode, severe with anxious distress: Status: Acute Code(s): F33.2 - Major depressive disorder, recurrent severe without psychotic features (2) Chronic post-traumatic stress disorder: Status: Acute Code(s): F43.12 - Post-traumatic stress disorder, chronic Assessment and Plan: Continue Trileptal as tolerated, trying to clarify bipolar diagnosis. coping skills and grounding techniques Greater than 50% of the session was spent on counseling and/or coordination of care Patient educated on: diagnosis and medication risk/benefits Informed Consent: further education needed Reason for contiued inpatient stay Substantial Risk for: harm to self, inability to function and rapid decompensation
[2020-09-02 16:37] VITALS: BP 134/80; PULSE 100; TEMP 37.1; O2SAT 99
[2020-09-02 20:00] VITALS: BP 132/70; PULSE 99
[2020-09-02] MEDS: OLANZapine 10 MG TABLET 20 MG PO (21:02)
[2020-09-02] MEDS: Mirtazapine 15 MG TABLET PO (21:03)
[2020-09-02] MEDS: Atorvastatin Calcium 20 MG TABLET PO (21:03)
[2020-09-02] MEDS: Magnesium Hydrox/Alum Hydrox 30 ML ORAL.SUSP PO (22:24)
--- NOTE | 2020-09-03 | ECG_ITS ---
Test Reason : chest pain, tachycardia Blood Pressure : / mmHG Vent. Rate : 092 BPM Atrial Rate : 092 BPM P-R Int : 124 ms QRS Dur : 086 ms QT Int : 358 ms P-R-T Axes : 048 029 026 degrees QTc Int : 442 ms Normal sinus rhythm Normal ECG When compared to the previous EKG of No significant changes when compared with the previous EKG of Referred By: Palak Fishman Electronically Signed By:AMBER DUNHAM MD
[2020-09-03 06:00] VITALS: BP 121/78; PULSE 96; RESP 18; TEMP 36.6; O2SAT 97
[2020-09-03 08:00] VITALS: BP 121/78; PULSE 96; TEMP 36.6; O2SAT 97
[2020-09-03] MEDS: Omeprazole 20 MG CAPSULE.DR PO (08:49)
[2020-09-03] MEDS: Docusate Sodium 100 MG CAPSULE PO ×2 (08:49→20:30)
[2020-09-03] MEDS: Ascorbic Acid 500 MG TABLET 1000 MG PO (08:49)
[2020-09-03] MEDS: Nicotine 21 MG PATCH.TD24 TRANSDERMA (08:49)
[2020-09-03] MEDS: Aspirin Enteric Coated 81 MG TABLET.DR PO (08:49)
[2020-09-03] MEDS: Clotrimazole 1 % Cream 15 GM TUBE 1 APPL TOPICAL ×2 (08:49→22:26)
[2020-09-03] MEDS: OXcarbazepine 300 MG TABLET PO ×2 (08:50→20:30)
[2020-09-03 10:32] VITALS: BP 155/77; PULSE 102; TEMP 37.1; O2SAT 97
[2020-09-03] MEDS: LORazepam 1 MG TABLET 2 MG PO (10:32)
[2020-09-03 11:38] LABS: Basophils Absolute Auto 0.1 X10*3/uL (0.0-0.2); Basophils Percent Auto 0.5 % (0-2); Eosinophils Absolute Auto 0.3 X10*3/uL (0.0-0.4); Eosinophils Percent Auto 2.7 % (0-4); Hematocrit 40.7 % (37-47); Imm Gran Abs Auto 0.02 X10*3/uL (0.00-0.03); Imm Gran Pct Auto 0.2 % (0.0-0.4); Lymphocytes Absolute Auto 4.2 X10*3/uL (1.2-4.9); Lymphocytes Percent Auto 37.3 % (20-40); Mean Corpuscular HGB Conc 34.4 g/dl (31.0-35.0); Mean Corpuscular Hemoglobin 30.8 pg (27.0-33.0); Mean Corpuscular Volume 89.5 fL (80-98); Mean Platelet Volume 9.2 fL (9.4-12.3); Monocytes Percent Auto 8.8 % (2-11); Neutrophils Absolute Auto 5.7 X10*3/uL (2.0-8.3); Neutrophils Percent Auto 50.5 % (45-73); Platelet Count 261 X10*3/uL (160-400); Red Blood Count 4.55 X10*6/uL (4.20-5.50); Red Cell Distribution Width 11.8 % (11.0-16.0); White Blood Count 11.3 X10*3/uL (4.8-10.8)
[2020-09-03 11:40] LABS: MANUAL DIFF FLAG NO
[2020-09-03 12:09] VITALS: PULSE 88
[2020-09-03 12:09] LABS: Anion Gap 12 (12-20); Carbon Dioxide 24 mmol/L (22-29); Chloride 107 mmol/L (96-108); Magnesium 2.2 mg/dL (1.6-2.6); Potassium 4.9 mmol/l (3.3-5.1); Sodium 138 mmol/L (135-145)
[2020-09-03] MEDS: Magnesium Hydrox/Alum Hydrox 30 ML ORAL.SUSP PO (14:43)
[2020-09-03 16:00] VITALS: BP 136/83; PULSE 100; TEMP 36.7
--- NOTE | 2020-09-03 16:40 | P.PNPSI_ITS ---
Subjective Subjective Date of Service: 09/03/20 Reason For Visit: Depression, PTSD Subjective Notes: Conditional Voluntary Interim History: pt anxious today; reporting chest pain; she says not GI upset; very anxious; took PRN ativan; EKG normal. BP a little high; chest pain resolve with prn ativan and reassurance Medication Compliance: Yes Side effects from medications: No Attending Groups: Intermittent Review of Systems Review of Systems REVIEW OF SYSTEMS: Pertinent positives and negatives are stated above in the history. GEN: no fevers, chills, fatigue HEENT: no nasal congestion, sore throat, ear pain NEURO: no headache, dizziness, focal weakness PULM: no cough, shortness of breath CV: no chest pain, palpitations, LE edema ABD: Chronic abdominal pain, ++nausea no vomiting or, diarrhea : no dysuria, urgency, frequency SKIN: no rash ROS otherwise negative x 10 Mental Status Exam Mental Status Exam Patient Appearance: Well Grooomed Patient Orientation: Person, Place, Time and Situation Level of Consciousness: Awake and Restless Patient Behavior: Appropriate, Talkative, Cooperative, Restless and Anxious Mood Description: Depressed, Anxious, Labile and Apprehensive Affect Description: Constricted, Anxious and Labile Patient Cognition Impaired: No Ability to Follow Directions: Good Speech Pattern: Clear and Perseverating Thought Process: Intact Thought Content: positive for Intact, positive for Goal Oriented and positive for Logical Depressive Symptoms: Increased Anxiety Abnormal Motor Activity Signs and Symptoms: Restlessness Judgement: Good Diagnostics Vital Signs (24Hr): Vital Signs - 24 hr 09/02/20 20:00 09/03/20 06:00 09/03/20 08:00 Temperature 97.8 F 97.8 F Pulse Rate 99 96 96 Respiratory Rate 18 Blood Pressure 132/70 121/78 121/78 Pulse Oximetry 97 97 09/03/20 10:32 09/03/20 12:09 Temperature 98.8 F Pulse Rate 102 H 88 Respiratory Rate Blood Pressure 155/77 H Pulse Oximetry 97 Body Mass Index 23.5 Labs Results: 09/03/20 11:30 09/03/20 11:30 Labs: Laboratory Results - last 48 hr 09/02/20 09/03/20 09/03/20 08:13 11:30 11:30 WBC 11.3 H RBC 4.55 Hgb 14.0 Hct 40.7 MCV 89.5 MCH 30.8 MCHC 34.4 RDW 11.8 Plt Count 261 MPV 9.2 L Immature Gran % (Auto) 0.2 Neut % (Auto) 50.5 Lymph % (Auto) 37.3 [place] % (Auto) 8.8 Eos % (Auto) 2.7 Baso % (Auto) 0.5 Lymph # (Auto) 4.2 [place] # (Auto) 1.0 Eos # (Auto) 0.3 Baso # (Auto) 0.1 Abs Immat Gran (auto) 0.02 Absolute Neuts (auto) 5.7 Absolute Nucleated RBC 0.000 Nucleated RBC % (auto) 0.0 Sodium 137 138 Potassium 4.4 4.9 Chloride 106 107 Carbon Dioxide 24 24 Anion Gap 11 L 12 BUN 15 Creatinine 0.67 Estim Creat Clear Calc 105.2 Estimated GFR > 60 Fasting Glucose 100 H Calcium 9.2 Magnesium 2.2 Total Bilirubin 0.5 AST 15 ALT 10 Alkaline Phosphatase 76 Total Protein 7.3 Albumin 4.3 Triglycerides 139 Cholesterol 216 LDL Cholesterol, Calc 141 HDL Cholesterol 48 TSH 0.99 Medications Medications Current Medications Generic Name Dose Route Start Last Admin Trade Name Freq PRN Reason Stop Dose Admin Acetaminophen 650 mg 08/30/20 21:07 Acetaminophen 325 Mg Tablet PO Q6H PRN Headache/Pain Mild Scale (1-3) Al Hydroxide/Mg Hydroxide 30 ml 08/30/20 21:07 09/03/20 14:43 Magnesium Hydrox/Alum Hydrox 30 Ml Oral.Susp PO 30 ml Q6H PRN Administration Heartburn/Nausea Albuterol Sulfate 2 puff 08/30/20 18:43 Albuterol Sulfate 90 Mcg 8 Gm Inhaler INHALE Q4H PRN Shortness Of Breath Ascorbic Acid 1,000 mg 08/31/20 09:00 09/03/20 08:49 Ascorbic Acid 500 Mg Tablet PO 1,000 mg DAILY [facility] Administration Aspirin 81 mg 08/31/20 09:00 09/03/20 08:49 Aspirin Enteric Coated 81 Mg Tablet. PO 81 mg DAILY [facility] Administration Atorvastatin Calcium 20 mg 08/30/20 21:00 09/02/20 21:03 Atorvastatin Calcium 20 Mg Tablet PO 20 mg BEDTIME [facility] Administration Clotrimazole 1 appl 08/30/20 21:00 09/03/20 08:49 Clotrimazole 1 % Cream 15 Gm Tube TOPICAL 1 appl BID [facility] Administration Docusate Sodium 100 mg 08/30/20 21:00 09/03/20 08:49 Docusate Sodium 100 Mg Capsule PO 100 mg BID [facility] Administration Hydroxyzine HCl 50 mg 08/30/20 18:48 09/02/20 18:39 Hydroxyzine Hcl 50 Mg Tablet PO 50 mg BID PRN Administration Anxiety Hydroxyzine HCl 25 mg 08/30/20 21:07 Hydroxyzine Hcl 25 Mg Tablet PO BEDTIME PRN Anxiety Ibuprofen 800 mg 08/30/20 18:43 09/01/20 16:30 Ibuprofen 800 Mg Tablet PO 800 mg Q8H PRN Administration Pain (Scale Score 1-3) Lorazepam 2 mg 08/30/20 11:09 09/03/20 10:32 Lorazepam 1 Mg Tablet PO 2 mg RQ6H PRN Administration anxiety/restlessness Magnesium Hydroxide 30 ml 08/30/20 21:07 Milk Of Magnesia 30 Ml Oral.Susp PO DAILY PRN Constipation Mirtazapine 15 mg 08/30/20 21:00 09/02/20 21:03 Mirtazapine 15 Mg Tablet PO 15 mg BEDTIME [facility] Administration Nicotine 21 mg 09/02/20 09:00 09/03/20 08:49 Nicotine 21 Mg Patch.Td24 TRANSDERMA 21 mg DAILY [facility] Administration Olanzapine 20 mg 08/30/20 21:00 09/02/20 21:02 Olanzapine 10 Mg Tablet PO 20 mg BEDTIME [facility] Administration Omeprazole 20 mg 08/31/20 06:30 09/03/20 08:49 Omeprazole 20 Mg Capsule.Dr PO 20 mg DAILY@0630 [facility] Administration Ondansetron HCl 4 mg 08/30/20 07:40 08/30/20 07:43 Ondansetron Odt 4 Mg Tab.Rapdis TRANSLINGU 4 mg TID PRN Administration Nausea and Vomiting Oxcarbazepine 300 mg 09/02/20 09:00 09/03/20 08:50 Oxcarbazepine 300 Mg Tablet PO 300 mg BID [facility] Administration Oxycodone HCl 1 mg 08/30/20 18:48 Oxycodone Hcl Immed Release 5 Mg Tablet PO Q6H PRN Pain (Scale Score 4-6) Trazodone HCl 50 mg 08/30/20 21:07 Trazodone Hcl 50 Mg Tablet PO BEDTIME PRN Insomnia Allergies Allergies Allergy/AdvReac Type Severity Reaction Status Date / Time Penicillins [PENICILLINS] Allergy Severe DIFFICULTY Unverified 06/01/20 18:09 BREATHING Sulfa (Sulfonamide Allergy Severe DIFFICULTY Unverified 06/01/20 18:09 Antibiotics) BREATHING [SULFA (SULFONAMIDE ANTIBIOTICS)] latex [LATEX] Allergy Intermediate RASH Unverified 06/01/20 18:09 penicillin V Allergy Unknown Verified 05/31/19 00:00 vancomycin [VANCOMYCIN] Allergy Unknown UNKNOWN Unverified 06/01/20 18:09 LATEX Allergy Unknown Uncoded 05/31/19 00:00 Assessment & Plan Assessment & Plan (1) Major depressive disorder, recurrent episode, severe with anxious distress: Status: Acute Code(s): F33.2 - Major depressive disorder, recurrent severe without psychotic features (2) Chronic post-traumatic stress disorder: Status: Acute Code(s): F43.12 - Post-traumatic stress disorder, chronic Assessment and Plan: Continue Trileptal as tolerated, trying to clarify bipolar diagnosis. coping skills and grounding techniques Greater than 50% of the session was spent on counseling and/or coordination of care Patient educated on: medication risk/benefits, therapeutic strategies, medical condition and other (EKG) Informed Consent: understands Reason for contiued inpatient stay Substantial Risk for: inability to function and rapid decompensation
[2020-09-03 17:19] VITALS: BP 137/78; PULSE 102; TEMP 37
[2020-09-03] MEDS: Atorvastatin Calcium 20 MG TABLET PO (20:30)
[2020-09-03] MEDS: OLANZapine 10 MG TABLET 20 MG PO (20:30)
[2020-09-03] MEDS: Mirtazapine 15 MG TABLET PO (20:31)
[2020-09-04 02:40] VITALS: BP 125/78; PULSE 108; RESP 18; TEMP 36.8; O2SAT 98
[2020-09-04] MEDS: LORazepam 1 MG TABLET 2 MG PO ×3 (02:40→19:52)
[2020-09-04] MEDS: traZODone HCL 50 MG TABLET PO (02:40)
[2020-09-04 08:46] LABS: Folate 14.4 ng/mL (> or = 4.0); Vitamin B12 453 pg/mL (200-900)
[2020-09-04] MEDS: Docusate Sodium 100 MG CAPSULE PO ×2 (09:12→20:48)
[2020-09-04] MEDS: OXcarbazepine 300 MG TABLET PO ×2 (09:12→20:48)
[2020-09-04] MEDS: Aspirin Enteric Coated 81 MG TABLET.DR PO (09:12)
[2020-09-04] MEDS: Clotrimazole 1 % Cream 15 GM TUBE 1 APPL TOPICAL ×2 (09:12→20:58)
[2020-09-04] MEDS: Omeprazole 20 MG CAPSULE.DR PO (09:12)
[2020-09-04] MEDS: Ascorbic Acid 500 MG TABLET 1000 MG PO (09:12)
[2020-09-04] MEDS: Nicotine 21 MG PATCH.TD24 TRANSDERMA (09:14)
[2020-09-04 13:18] VITALS: BP 128/89; PULSE 106; TEMP 37.2
[2020-09-04 16:54] VITALS: BP 127/76; PULSE 95; TEMP 37.1
--- NOTE | 2020-09-04 19:34 | PC.NURSE ---
phone calls-the patient has been on the phone for long periods of time in loud, heated discussion with her boyfriend. reports that they need couples therapy, that they both have mental illness and at times it interferers with their relationship.
[2020-09-04 20:00] VITALS: BP 148/87; PULSE 102; TEMP 37
[2020-09-04] MEDS: OLANZapine 10 MG TABLET 20 MG PO (20:48)
[2020-09-04] MEDS: Mirtazapine 15 MG TABLET PO (20:48)
[2020-09-04] MEDS: Atorvastatin Calcium 20 MG TABLET PO (20:48)
--- NOTE | 2020-09-04 22:58 | HO.PSYCHPN ---
Subjective Subjective Date of Service: 09/05/20 Reason For Visit: Depression, PTSD Subjective Notes: Conditional Voluntary Interim History: patient with limited engagement with staff. Can be quite labile on the phone but states she is feeling more stable denies active thoughts of self-harm remains problematic with family particularly with her brother feeling somewhat better Medication Compliance: Yes Mental Status Exam Mental Status Exam Patient Appearance: Well Grooomed Patient Orientation: Person, Place, Time and Situation Level of Consciousness: Awake and Restless Patient Behavior: Appropriate, Talkative, Cooperative, Restless and Anxious Mood Description: Depressed, Anxious, Labile and Apprehensive Affect Description: Constricted, Anxious and Labile Patient Cognition Impaired: No Ability to Follow Directions: Good Speech Pattern: Clear and Perseverating Thought Process: Intact Thought Content: positive for Intact, positive for Goal Oriented and positive for Logical Depressive Symptoms: Increased Anxiety Abnormal Motor Activity Signs and Symptoms: Restlessness Judgement: Good Diagnostics Vital Signs (24Hr): Vital Signs - 24 hr 09/04/20 02:40 09/04/20 13:18 09/04/20 16:54 Temperature 98.2 F 99 F 98.7 F Pulse Rate 108 H 106 H 95 Respiratory Rate 18 Blood Pressure 125/78 128/89 127/76 Pulse Oximetry 98 09/04/20 20:00 Temperature 98.6 F Pulse Rate 102 H Respiratory Rate Blood Pressure 148/87 H Pulse Oximetry Body Mass Index 23.5 Labs Results: 09/03/20 11:30 09/03/20 11:30 Labs: Laboratory Results - last 48 hr 09/02/20 09/03/20 09/03/20 08:13 11:30 11:30 WBC 11.3 H RBC 4.55 Hgb 14.0 Hct 40.7 MCV 89.5 MCH 30.8 MCHC 34.4 RDW 11.8 Plt Count 261 MPV 9.2 L Immature Gran % (Auto) 0.2 Neut % (Auto) 50.5 Lymph % (Auto) 37.3 [place] % (Auto) 8.8 Eos % (Auto) 2.7 Baso % (Auto) 0.5 Lymph # (Auto) 4.2 [place] # (Auto) 1.0 Eos # (Auto) 0.3 Baso # (Auto) 0.1 Abs Immat Gran (auto) 0.02 Absolute Neuts (auto) 5.7 Absolute Nucleated RBC 0.000 Nucleated RBC % (auto) 0.0 Sodium 138 Potassium 4.9 Chloride 107 Carbon Dioxide 24 Anion Gap 12 Magnesium 2.2 Vitamin B12 453 Folate 14.4 Medications Medications Current Medications Generic Name Dose Route Start Last Admin Trade Name Freq PRN Reason Stop Dose Admin Acetaminophen 650 mg 08/30/20 21:07 Acetaminophen 325 Mg Tablet PO Q6H PRN Headache/Pain Mild Scale (1-3) Al Hydroxide/Mg Hydroxide 30 ml 08/30/20 21:07 09/03/20 14:43 Magnesium Hydrox/Alum Hydrox 30 Ml Oral.Susp PO 30 ml Q6H PRN Administration Heartburn/Nausea Albuterol Sulfate 2 puff 08/30/20 18:43 Albuterol Sulfate 90 Mcg 8 Gm Inhaler INHALE Q4H PRN Shortness Of Breath Ascorbic Acid 1,000 mg 08/31/20 09:00 09/04/20 09:12 Ascorbic Acid 500 Mg Tablet PO 1,000 mg DAILY KRYSTAL Administration Aspirin 81 mg 08/31/20 09:00 09/04/20 09:12 Aspirin Enteric Coated 81 Mg Tablet.Dr PO 81 mg DAILY KRYSTAL Administration Atorvastatin Calcium 20 mg 08/30/20 21:00 09/04/20 20:48 Atorvastatin Calcium 20 Mg Tablet PO 20 mg BEDTIME KRYSTAL Administration Clotrimazole 1 appl 08/30/20 21:00 09/04/20 20:58 Clotrimazole 1 % Cream 15 Gm Tube TOPICAL 1 appl BID KRYSTAL Administration Docusate Sodium 100 mg 08/30/20 21:00 09/04/20 20:48 Docusate Sodium 100 Mg Capsule PO 100 mg BID KRYSTAL Administration Hydroxyzine HCl 50 mg 08/30/20 18:48 09/02/20 18:39 Hydroxyzine Hcl 50 Mg Tablet PO 50 mg BID PRN Administration Anxiety Hydroxyzine HCl 25 mg 08/30/20 21:07 Hydroxyzine Hcl 25 Mg Tablet PO BEDTIME PRN Anxiety Ibuprofen 800 mg 08/30/20 18:43 09/01/20 16:30 Ibuprofen 800 Mg Tablet PO 800 mg Q8H PRN Administration Pain (Scale Score 1-3) Lorazepam 2 mg 09/04/20 11:08 09/04/20 19:52 Lorazepam 1 Mg Tablet PO 2 mg RQ6H PRN Administration anxiety/restlessness Magnesium Hydroxide 30 ml 08/30/20 21:07 Milk Of Magnesia 30 Ml Oral.Susp PO DAILY PRN Constipation Mirtazapine 15 mg 08/30/20 21:00 09/04/20 20:48 Mirtazapine 15 Mg Tablet PO 15 mg BEDTIME KRYSTAL Administration Nicotine 21 mg 09/02/20 09:00 09/04/20 09:14 Nicotine 21 Mg Patch.Td24 TRANSDERMA 21 mg DAILY KRYSTAL Administration Olanzapine 20 mg 08/30/20 21:00 09/04/20 20:48 Olanzapine 10 Mg Tablet PO 20 mg BEDTIME KRYSTAL Administration Omeprazole 20 mg 08/31/20 06:30 09/04/20 09:12 Omeprazole 20 Mg Capsule.Dr PO 20 mg DAILY@0630 KRYSTAL Administration Ondansetron HCl 4 mg 08/30/20 07:40 08/30/20 07:43 Ondansetron Odt 4 Mg Tab.Rapdis TRANSLINGU 4 mg TID PRN Administration Nausea and Vomiting Oxcarbazepine 300 mg 09/02/20 09:00 09/04/20 20:48 Oxcarbazepine 300 Mg Tablet PO 300 mg BID KRYSTAL Administration Trazodone HCl 50 mg 08/30/20 21:07 09/04/20 02:40 Trazodone Hcl 50 Mg Tablet PO 50 mg BEDTIME PRN Administration Insomnia Allergies Allergies Allergy/AdvReac Type Severity Reaction Status Date / Time Penicillins [PENICILLINS] Allergy Severe DIFFICULTY Unverified 06/01/20 18:09 BREATHING Sulfa (Sulfonamide Allergy Severe DIFFICULTY Unverified 06/01/20 18:09 Antibiotics) BREATHING [SULFA (SULFONAMIDE ANTIBIOTICS)] latex [LATEX] Allergy Intermediate RASH Unverified 06/01/20 18:09 penicillin V Allergy Unknown Verified 05/31/19 00:00 vancomycin [VANCOMYCIN] Allergy Unknown UNKNOWN Unverified 06/01/20 18:09 LATEX Allergy Unknown Uncoded 05/31/19 00:00 Assessment & Plan Assessment & Plan (1) Major depressive disorder, recurrent episode, severe with anxious distress: Status: Acute Code(s): F33.2 - Major depressive disorder, recurrent severe without psychotic features Assessment and Plan: r/o bipoalar 2 inc oxcarbazine 450 bid monoitor safety ? adverse effect mirtazapine (2) Chronic post-traumatic stress disorder: Status: Acute Code(s): F43.12 - Post-traumatic stress disorder, chronic Greater than 50% of the session was spent on counseling and/or coordination of care
[2020-09-05] MEDS: LORazepam 1 MG TABLET 2 MG PO ×3 (03:28→17:56)
[2020-09-05 03:29] VITALS: BP 132/79; PULSE 114; RESP 18; TEMP 36.9; O2SAT 98
[2020-09-05 06:30] VITALS: BP 113/59; PULSE 92; O2SAT 97
[2020-09-05] MEDS: Omeprazole 20 MG CAPSULE.DR PO (07:08)
[2020-09-05] MEDS: Ascorbic Acid 500 MG TABLET 1000 MG PO (08:34)
[2020-09-05] MEDS: Docusate Sodium 100 MG CAPSULE PO ×2 (08:34→19:53)
[2020-09-05] MEDS: OXcarbazepine 150 MG TABLET 450 MG PO ×2 (08:35→19:53)
[2020-09-05] MEDS: Nicotine 21 MG PATCH.TD24 TRANSDERMA (08:36)
[2020-09-05] MEDS: Aspirin Enteric Coated 81 MG TABLET.DR PO (08:36)
[2020-09-05] MEDS: Clotrimazole 1 % Cream 15 GM TUBE 1 APPL TOPICAL ×2 (08:39→19:54)
[2020-09-05 16:00] VITALS: BP 136/80; PULSE 122; TEMP 37.1
[2020-09-05 18:00] VITALS: BP 150/96; PULSE 134; TEMP 37.1
[2020-09-05] MEDS: Atorvastatin Calcium 20 MG TABLET PO (19:53)
[2020-09-05] MEDS: OLANZapine 10 MG TABLET 20 MG PO (19:53)
[2020-09-05] MEDS: Mirtazapine 15 MG TABLET PO (19:53)
[2020-09-05 20:00] VITALS: BP 119/87; PULSE 116; TEMP 36.9
[2020-09-05] MEDS: hydrOXYzine HCL 50 MG TABLET PO (22:11)
--- NOTE | 2020-09-05 22:33 | HO.PSYCHPN ---
Subjective Subjective Date of Service: 09/16/20 Reason For Visit: Depression, PTSD Subjective Notes: Conditional Voluntary and 3 Day Interim History: Periods of irritability especially on the phone denies self harm states feeling better Mental Status Exam Mental Status Exam Patient Appearance: Well Grooomed Patient Orientation: Person, Place, Time and Situation Level of Consciousness: Awake and Restless Patient Behavior: Appropriate, Talkative, Cooperative, Restless and Anxious Mood Description: Depressed, Anxious, Labile and Apprehensive Affect Description: Constricted, Anxious and Labile Patient Cognition Impaired: No Ability to Follow Directions: Good Speech Pattern: Clear and Perseverating Thought Process: Intact Thought Content: positive for Intact, positive for Goal Oriented and positive for Logical Depressive Symptoms: Increased Anxiety Abnormal Motor Activity Signs and Symptoms: Restlessness Judgement: Good Diagnostics Vital Signs (24Hr): Vital Signs - 24 hr 09/05/20 03:29 09/05/20 06:30 09/05/20 16:00 Temperature 98.5 F 98.8 F Pulse Rate 114 H 92 122 H Respiratory Rate 18 Blood Pressure 132/79 113/59 L 136/80 Pulse Oximetry 98 97 09/05/20 18:00 09/05/20 20:00 Temperature 98.8 F 98.4 F Pulse Rate 134 H 116 H Respiratory Rate Blood Pressure 150/96 H 119/87 Pulse Oximetry Body Mass Index 23.5 Labs Results: 09/03/20 11:30 09/03/20 11:30 Labs: Laboratory Results - last 48 hr 09/02/20 08:13 Vitamin B12 453 Folate 14.4 Medications Medications Current Medications Generic Name Dose Route Start Last Admin Trade Name Freq PRN Reason Stop Dose Admin Acetaminophen 650 mg 08/30/20 21:07 Acetaminophen 325 Mg Tablet PO Q6H PRN Headache/Pain Mild Scale (1-3) Al Hydroxide/Mg Hydroxide 30 ml 08/30/20 21:07 09/03/20 14:43 Magnesium Hydrox/Alum Hydrox 30 Ml Oral.Susp PO 30 ml Q6H PRN Administration Heartburn/Nausea Albuterol Sulfate 2 puff 08/30/20 18:43 Albuterol Sulfate 90 Mcg 8 Gm Inhaler INHALE Q4H PRN Shortness Of Breath Ascorbic Acid 1,000 mg 08/31/20 09:00 09/05/20 08:34 Ascorbic Acid 500 Mg Tablet PO 1,000 mg DAILY KRYSTAL Administration Aspirin 81 mg 08/31/20 09:00 09/05/20 08:36 Aspirin Enteric Coated 81 Mg Tablet. PO 81 mg DAILY KRYSTAL Administration Atorvastatin Calcium 20 mg 08/30/20 21:00 09/05/20 19:53 Atorvastatin Calcium 20 Mg Tablet PO 20 mg BEDTIME KRYSTAL Administration Clotrimazole 1 appl 08/30/20 21:00 09/05/20 19:54 Clotrimazole 1 % Cream 15 Gm Tube TOPICAL 1 appl BID KRYSTAL Administration Docusate Sodium 100 mg 08/30/20 21:00 09/05/20 19:53 Docusate Sodium 100 Mg Capsule PO 100 mg BID KRYSTAL Administration Hydroxyzine HCl 50 mg 08/30/20 18:48 09/05/20 22:11 Hydroxyzine Hcl 50 Mg Tablet PO 50 mg BID PRN Administration Anxiety Hydroxyzine HCl 25 mg 08/30/20 21:07 Hydroxyzine Hcl 25 Mg Tablet PO BEDTIME PRN Anxiety Ibuprofen 800 mg 08/30/20 18:43 09/01/20 16:30 Ibuprofen 800 Mg Tablet PO 800 mg Q8H PRN Administration Pain (Scale Score 1-3) Lorazepam 2 mg 09/04/20 11:08 09/05/20 17:56 Lorazepam 1 Mg Tablet PO 2 mg RQ6H PRN Administration anxiety/restlessness Magnesium Hydroxide 30 ml 08/30/20 21:07 Milk Of Magnesia 30 Ml Oral.Susp PO DAILY PRN Constipation Mirtazapine 15 mg 08/30/20 21:00 09/05/20 19:53 Mirtazapine 15 Mg Tablet PO 15 mg BEDTIME KRYSTAL Administration Nicotine 21 mg 09/02/20 09:00 09/05/20 08:36 Nicotine 21 Mg Patch.Td24 TRANSDERMA 21 mg DAILY KRYSTAL Administration Olanzapine 20 mg 08/30/20 21:00 09/05/20 19:53 Olanzapine 10 Mg Tablet PO 20 mg BEDTIME KRYSTAL Administration Omeprazole 20 mg 08/31/20 06:30 09/05/20 07:08 Omeprazole 20 Mg Capsule. PO 20 mg DAILY@0630 KRYSTAL Administration Ondansetron HCl 4 mg 08/30/20 07:40 08/30/20 07:43 Ondansetron Odt 4 Mg Tab.Rapdis TRANSLINGU 4 mg TID PRN Administration Nausea and Vomiting Oxcarbazepine 450 mg 09/05/20 09:00 09/05/20 19:53 Oxcarbazepine 150 Mg Tablet PO 450 mg BID KRYSTAL Administration Trazodone HCl 50 mg 08/30/20 21:07 09/04/20 02:40 Trazodone Hcl 50 Mg Tablet PO 50 mg BEDTIME PRN Administration Insomnia Allergies Allergies Allergy/AdvReac Type Severity Reaction Status Date / Time Penicillins [PENICILLINS] Allergy Severe DIFFICULTY Unverified 06/01/20 18:09 BREATHING Sulfa (Sulfonamide Allergy Severe DIFFICULTY Unverified 06/01/20 18:09 Antibiotics) BREATHING [SULFA (SULFONAMIDE ANTIBIOTICS)] latex [LATEX] Allergy Intermediate RASH Unverified 06/01/20 18:09 penicillin V Allergy Unknown Verified 05/31/19 00:00 vancomycin [VANCOMYCIN] Allergy Unknown UNKNOWN Unverified 06/01/20 18:09 LATEX Allergy Unknown Uncoded 05/31/19 00:00 Assessment & Plan Assessment & Plan (1) Chronic abdominal pain: Status: Acute Code(s): R10.9 - Unspecified abdominal pain; G89.29 - Other chronic pain (2) Chronic post-traumatic stress disorder: Status: Acute Code(s): F43.12 - Post-traumatic stress disorder, chronic Assessment and Plan: continue present treatment plan (3) Major depressive disorder, recurrent episode, severe with anxious distress: Status: Acute Code(s): F33.2 - Major depressive disorder, recurrent severe without psychotic features Greater than 50% of the session was spent on counseling and/or coordination of care
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
[2020-09-06 06:25] VITALS: BP 131/66; PULSE 82; RESP 18; TEMP 36.7; O2SAT 96
[2020-09-06] MEDS: OXcarbazepine 150 MG TABLET 450 MG PO (08:23)
[2020-09-06] MEDS: Ascorbic Acid 500 MG TABLET 1000 MG PO (08:24)
[2020-09-06] MEDS: Docusate Sodium 100 MG CAPSULE PO (08:24)
[2020-09-06] MEDS: Aspirin Enteric Coated 81 MG TABLET.DR PO (08:24)
[2020-09-06] MEDS: Omeprazole 20 MG CAPSULE.DR PO (08:26)
[2020-09-06] MEDS: Nicotine 21 MG PATCH.TD24 TRANSDERMA (08:27)
[2020-09-06] MEDS: Clotrimazole 1 % Cream 15 GM TUBE 1 APPL TOPICAL (08:53)
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
== END 2020-09-06 12:00 | disposition home or self-care (01) | DRG 751 ==
LOC: HO.ED 08-30 20:52 → HO.PM5 08-30 21:15
PROVIDERS: Clinical Nurse Specialist Psychiatric/Mental Health; Admitting Provider Psychiatry & Neurology Psychiatry; Emergency Provider Internal Medicine; Visit Provider Psychiatry & Neurology Psychiatry
DX: F33.2 Major depressive disorder, recurrent severe without psychotic features (principal); I77.4 Celiac artery compression syndrome; F43.12 Post-traumatic stress disorder, chronic; F17.210 Nicotine dependence, cigarettes, uncomplicated; Z71.6 Tobacco abuse counseling; Z20.828 Contact with and (suspected) exposure to other viral communicable diseases; Z88.0 Allergy status to penicillin; Z88.2 Allergy status to sulfonamides; Z79.1 Long term (current) use of non-steroidal anti-inflammatories (NSAID); Z79.82 Long term (current) use of aspirin; Z79.891 Long term (current) use of opiate analgesic; Z79.899 Other long term (current) drug therapy
CPT/HCPCS: 36415; 80048; 80051; 80053; 80061; 80076; 80307; 81003; 82248; 82607; 82746; 83690; 83735; 84439; 84443; 85025; 87635; 90792; 93005; 99232; 99238; 99285

== ENCOUNTER 2020-09-16 07:02 | Emergency (ER) | payer MEDICAID, SELFPAY ==
--- NOTE | 2020-09-16 | ECG_ITS ---
Test Reason : CP Blood Pressure : / mmHG Vent. Rate : 090 BPM Atrial Rate : 090 BPM P-R Int : 122 ms QRS Dur : 094 ms QT Int : 368 ms P-R-T Axes : 057 026 029 degrees QTc Int : 450 ms Normal sinus rhythm Normal ECG When compared with ECG of 03-SEP-2020 14:41, No significant change was found Referred By: Elissa Evans Electronically Signed By:Erickson Marshall
[2020-09-16 07:26] VITALS: BP 100/71; PULSE 91; RESP 14; TEMP 37.2; O2SAT 100; BMI 61.2
--- NOTE | 2020-09-16 07:35 | ED_ITS ---
HPI - Chest Pain General Chief Complaint: Chest Pain Stated Complaint: ABD PAIN/CHEST PAIN Time Seen by Provider: 09/16/20 07:16 Source: patient Mode of arrival: ambulatory Limitations: no limitations History of Present Illness HPI narrative: Patient comes emergency room complaining of left-sided chest pain. Patient states it is worse when she presses on her chest and with inspiration. It started yesterday, constant, nonradiating. Patient states it is very sharp sensation. Patient denies shortness of breath, no coughing, no abdominal pain. Patient states that she started having chest pain last night while she was talking with her family, received bad news. Patient also complaining of palpitations MD complaint: chest pain Related Data Home Medications Medication Instructions Recorded Confirmed albuterol sulfate [ProAir HFA] 2 puff INHALATION Q4-6H PRN 08/30/20 08/30/20 ascorbic acid (vitamin C) [Vitamin 1,000 mg PO DAILY 08/30/20 08/30/20 C] aspirin 81 mg PO DAILY 08/30/20 08/30/20 atorvastatin 20 mg PO BEDTIME 08/30/20 08/30/20 clotrimazole 1 appl TOPICAL BID 08/30/20 08/30/20 docusate sodium 100 mg PO BID 08/30/20 08/30/20 hydroxyzine pamoate 50 mg PO BID PRN 08/30/20 08/30/20 ibuprofen 800 mg PO Q8H PRN 08/30/20 08/30/20 lidocaine [Lidoderm] 1 patch TOPICAL DAILY 08/30/20 08/30/20 mirtazapine 15 mg PO BEDTIME 08/30/20 08/30/20 ondansetron 4 mg PO Q8H PRN 08/30/20 08/30/20 oxycodone-acetaminophen 1 tab PO Q6H PRN 08/30/20 08/30/20 pantoprazole 40 mg PO DAILY 08/30/20 08/30/20 Previous Rx's Medication Instructions Recorded lorazepam 1 mg PO BID PRN 7 Days #10 tab 09/06/20 nicotine 21 mg TRANSDERMAL DAILY 21 Days 09/06/20 #21 ea olanzapine 20 mg PO BEDTIME 30 Days #30 tab 09/06/20 oxcarbazepine See Rx Instructions .ROUTE 09/06/20 .COMPLEX 30 Days #90 tab Allergies Allergy/AdvReac Type Severity Reaction Status Date / Time Penicillins [PENICILLINS] Allergy Severe DIFFICULTY Unverified 06/01/20 18:09 BREATHING Sulfa (Sulfonamide Allergy Severe DIFFICULTY Unverified 06/01/20 18:09 Antibiotics) BREATHING [SULFA (SULFONAMIDE ANTIBIOTICS)] latex [LATEX] Allergy Intermediate RASH Unverified 06/01/20 18:09 penicillin V Allergy Unknown Verified 05/31/19 00:00 vancomycin [VANCOMYCIN] Allergy Unknown UNKNOWN Unverified 06/01/20 18:09 LATEX Allergy Unknown Uncoded 05/31/19 00:00 Review of Systems Review of Systems: Constitutional : No Weight loss, No Fever, No Chills, No Night Sweats, No Fatigue, No Malaise ENT/Mouth : No Hearing loss, No Ear Pain, No Nasal Congestion, No Sinus Pain, No Hoarseness, No sore throat, No Rhinorrhea, No Swallowing Difficulty Eyes: No Eye Pain, No Swelling, No Redness, No Foreign Body, No Discharge, No Vision Changes Cardiovascular : Patient complaining of left-sided chest pain that gets worse with applying pressure on her chest, palpitations Respiratory : No Cough, No Sputum, No Wheezing, No Smoke Exposure, No Dyspnea Gastrointestinal : No Nausea, No Vomiting, No Diarrhea, No Constipation, No abdominal Pain, No Hematochezia, No Melena Genitourinary : no irregular bleeding, No Dysuria, No Urinary Frequency, No Hematuria, No Urinary Incontinence, No Urgency, No Flank Pain, No Urinary Flow Changes, No Hesitancy Musculoskeletal : No joint pain, No Myalgias, No Joint Swelling Skin : No Skin Lesions, No rash Neuro : No Weakness, No Numbness, No Paresthesias, No Loss of Consciousness, No Dizziness, No Headache Psych : No Anxiety/Panic, No Depression, No SI/HI/AH/VH, No Social Issues, Heme/Lymph: No Bruising, No Bleeding,No Lymphadenopathy Endocrine : No Polyuria, No Polydipsia, No Temperature Intolerance [facility] Past Medical History Medical History Major depressive disorder, recurrent episode, severe with anxious distress Social History Social History Household Members: Family Housing: Apartment Alcohol intake: never Smoking Status: Current every day smoker Tobacco Type: Cigarette Packs Per Day: 1 Cigarettes Per Day: 20.0 Years Smoked: since age 13 Second Hand Smoke Exposure: Yes Substance Use Type: Marijuana Advance Directives: No Advance Directives Information Provided: Yes service: No Sexual orientation: Straight/Heterosexual Physical Exam Vital Signs: Vital Signs: Last Vital Signs Temp 99.0 F 09/16/20 07:26 Pulse 91 09/16/20 07:26 Resp 14 09/16/20 07:26 BP 100/71 09/16/20 07:26 Pulse Ox 100 09/16/20 07:26 Body Mass Index 61.2 Appearance: Alert. Oriented X3. No acute distress. Very anxious Eyes: Pupils equal, round and reactive to light. ENT: Pharynx normal. Neck: Normal inspection. Neck supple. No lymph nodes noted. No crepitus CVS: Normal heart rate and rhythm. Pulses normal. Normal S1 and S2, meniscal chest pain on palpation Respiratory: No respiratory distress. Breath sounds normal. No Wheezing. No rales Abdomen: Soft and nontender. No rigidity. No distention. good BS x4 Skin: Skin warm and dry. Normal skin color. Normal skin turgor. Extremities: No lower extremity edema. No lower extremity edema. No Lacerations. No Rash Neuro: Oriented X 3. No motor deficit. No sensory deficit. Moving all extermities. No slurred speech. Course Course Course Narrative: I discussed the labs EKG with the patient, patient will follow-up with her primary care physician. Patient's chest pain likely secondary to anxiety MDM - Chest Pain Lab Data Result diagrams: 09/16/20 07:46 09/16/20 07:46 Labs: Lab Results 09/16/20 09/16/20 09/16/20 Range/Units 07:46 07:46 07:46 WBC 12.6 H (4.8-10.8) X10*3/uL RBC 4.36 (4.20-5.50) X10*6/uL Hgb 13.5 (12.0-16.0) g/dl Hct 39.1 (37-47) % MCV 89.7 (80-98) fL MCH 31.0 (27.0-33.0) pg MCHC 34.5 (31.0-35.0) g/dl RDW 12.2 (11.0-16.0) % Plt Count 345 D (160-400) X10*3/uL MPV 8.9 L (9.4-12.3) fL Immature Gran % (Auto) 0.5 H (0.0-0.4) % Neut % (Auto) 59.5 (45-73) % Lymph % (Auto) 32.8 (20-40) % [place] % (Auto) 5.0 (2-11) % Eos % (Auto) 1.7 (0-4) % Baso % (Auto) 0.5 (0-2) % Lymph # (Auto) 4.1 (1.2-4.9) X10*3/uL [place] # (Auto) 0.6 (0.1-1.2) X10*3/uL Eos # (Auto) 0.2 (0.0-0.4) X10*3/uL Baso # (Auto) 0.1 (0.0-0.2) X10*3/uL Abs Immat Gran (auto) 0.06 H (0.00-0.03) X10*3/uL Absolute Neuts (auto) 7.5 (2.0-8.3) X10*3/uL Absolute Nucleated RBC 0.000 (0.0-0.012) X10*3/uL Nucleated RBC % (auto) 0.0 (0.0-0.2) /100WBC D-Dimer < 200 NG/ML Sodium 139 (135-145) mmol/L Potassium 4.0 (3.3-5.1) mmol/l Chloride 107 (96-108) mmol/L Carbon Dioxide 23 (22-29) mmol/L Anion Gap 13 (12-20) BUN 12 (9-16) mg/dL Creatinine 0.63 (0.5-1.4) mg/dL Estim Creat Clear Calc 165.1 Estimated GFR > 60 Random Glucose 101 (60-115) mg/dL Calcium 8.8 (8.4-10.2) mg/dL Troponin I High Sens (<3.5-17.0) ng/L TSH 1.17 (0.32-4.0) mIU/mL 09/16/20 Range/Units 07:46 WBC (4.8-10.8) X10*3/uL RBC (4.20-5.50) X10*6/uL Hgb (12.0-16.0) g/dl Hct (37-47) % MCV (80-98) fL MCH (27.0-33.0) pg MCHC (31.0-35.0) g/dl RDW (11.0-16.0) % Plt Count (160-400) X10*3/uL MPV (9.4-12.3) fL Immature Gran % (Auto) (0.0-0.4) % Neut % (Auto) (45-73) % Lymph % (Auto) (20-40) % [place] % (Auto) (2-11) % Eos % (Auto) (0-4) % Baso % (Auto) (0-2) % Lymph # (Auto) (1.2-4.9) X10*3/uL [place] # (Auto) (0.1-1.2) X10*3/uL Eos # (Auto) (0.0-0.4) X10*3/uL Baso # (Auto) (0.0-0.2) X10*3/uL Abs Immat Gran (auto) (0.00-0.03) X10*3/uL Absolute Neuts (auto) (2.0-8.3) X10*3/uL Absolute Nucleated RBC (0.0-0.012) X10*3/uL Nucleated RBC % (auto) (0.0-0.2) /100WBC D-Dimer NG/ML Sodium (135-145) mmol/L Potassium (3.3-5.1) mmol/l Chloride (96-108) mmol/L Carbon Dioxide (22-29) mmol/L Anion Gap (12-20) BUN (9-16) mg/dL Creatinine (0.5-1.4) mg/dL Estim Creat Clear Calc Estimated GFR Random Glucose (60-115) mg/dL Calcium (8.4-10.2) mg/dL Troponin I High Sens < 3.5 (<3.5-17.0) ng/L TSH (0.32-4.0) mIU/mL ECG Data ECG #1: Attestation: I personally reviewed and interpreted this ECG as follows: (Normal sinus rhythm, heart rate 90, QTC 450, no ST segment depressions or elevations, no T-wave inversions) Scores Heart Score History: -0- slightly suspicious ECG: -0- normal Age: -0- < or = 45 Risk factory: -0- no risk factors known Troponin: -0- < or = normal limit Score: 0 Risk: 1.7% Discharge Plan Discharge Clinical Impression: Atypical chest pain Patient Disposition: Home, Self-Care Instructions: Chest Pain (ED) Additional Instructions: Please follow-up with your primary care physician tomorrow. If you have any worsening or new symptoms, please return to the emergency room or call 911 Prescriptions: No Action ascorbic acid (vitamin C) [Vitamin C] 1,000 mg Tablet 1,000 mg PO DAILY RF: 0 atorvastatin 20 mg Tablet 20 mg PO BEDTIME RF: 0 ibuprofen 800 mg Tablet 800 mg PO Q8H PRN (Reason: Pain (Scale Score 1-3)) RF: 0 hydroxyzine pamoate 50 mg Capsule 50 mg PO BID PRN (Reason: Anxiety) RF: 0 aspirin 81 mg Tablet,Delayed Release (Dr/Ec) 81 mg PO DAILY RF: 0 oxycodone-acetaminophen 5-325 mg Tablet 1 tab PO Q6H PRN (Reason: Pain (Scale Score 4-6)) RF: 0 pantoprazole 40 mg Tablet,Delayed Release (Dr/Ec) 40 mg PO DAILY RF: 0 lidocaine [Lidoderm] 5 % Adhesive Patch,Medicated 1 patch TOPICAL DAILY RF: 0 docusate sodium 100 mg Capsule 100 mg PO BID RF: 0 mirtazapine 15 mg Tablet 15 mg PO BEDTIME RF: 0 albuterol sulfate [ProAir HFA] 90 mcg/actuation Hfa Aerosol Inhaler 2 puff INHALATION Q4-6H PRN (Reason: Shortness Of Breath) RF: 0 ondansetron 4 mg Tablet,Disintegrating 4 mg PO Q8H PRN (Reason: Nausea And Vomiting) RF: 0 clotrimazole 1 % Cream 1 appl TOPICAL BID RF: 0 nicotine 21 mg/24 hr Patch 24 Hour 21 mg transdermal DAILY 21 Days Qty: 21 RF: 0 oxcarbazepine 300 mg tablet See Rx Instructions .ROUTE .COMPLEX 30 Days Qty: 90 RF: 0 lorazepam 1 mg tablet 1 mg PO BID PRN (Reason: anxiety agitation) 7 Days Qty: 10 RF: 1 olanzapine 20 mg Tablet 20 mg PO BEDTIME 30 Days Qty: 30 RF: 0 Stand Alone Forms: Work/School Release
[2020-09-16] MEDS: Aspirin Enteric Coated 325 MG TABLET.DR PO (07:39)
[2020-09-16] MEDS: 0.9 % Sodium Chloride 1,000 ML 999 ML IVCONT (07:47)
[2020-09-16 07:51] LABS: MANUAL DIFF FLAG NO
[2020-09-16 08:02] LABS: D Dimer < 200 NG/ML
[2020-09-16 08:03] LABS: Basophils Absolute Auto 0.1 X10*3/uL (0.0-0.2); Basophils Percent Auto 0.5 % (0-2); Eosinophils Absolute Auto 0.2 X10*3/uL (0.0-0.4); Eosinophils Percent Auto 1.7 % (0-4); Hematocrit 39.1 % (37-47); Hemoglobin 13.5 g/dl (12.0-16.0); Imm Gran Abs Auto 0.06 X10*3/uL (0.00-0.03); Imm Gran Pct Auto 0.5 % (0.0-0.4); Lymphocytes Absolute Auto 4.1 X10*3/uL (1.2-4.9); Lymphocytes Percent Auto 32.8 % (20-40); Mean Corpuscular HGB Conc 34.5 g/dl (31.0-35.0); Mean Corpuscular Volume 89.7 fL (80-98); Mean Platelet Volume 8.9 fL (9.4-12.3); Monocytes Absolute Auto 0.6 X10*3/uL (0.1-1.2); Neutrophils Absolute Auto 7.5 X10*3/uL (2.0-8.3); Neutrophils Percent Auto 59.5 % (45-73); Platelet Count 345 X10*3/uL (160-400); Red Blood Count 4.36 X10*6/uL (4.20-5.50); Red Cell Distribution Width 12.2 % (11.0-16.0); White Blood Count 12.6 X10*3/uL (4.8-10.8)
[2020-09-16 08:15] LABS: Anion Gap 13 (12-20); Blood Urea Nitrogen 12 mg/dL (9-16); Calcium 8.8 mg/dL (8.4-10.2); Carbon Dioxide 23 mmol/L (22-29); Chloride 107 mmol/L (96-108); Creatinine Clr Calc Pharmacy 165.1; Estimated Glomerular Filt Rate > 60; Glucose Random 101 mg/dL (60-115); Sodium 139 mmol/L (135-145)
[2020-09-16 08:22] LABS: Troponin-I High Sensitivity < 3.5 ng/L (<3.5-17.0)
[2020-09-16 08:37] LABS: TSH reflex Free T4 1.17 mIU/mL (0.32-4.0)
== END 2020-09-16 09:08 | disposition home or self-care (01) ==
PROVIDERS: Emergency Provider Emergency Medicine
DX: R07.89 Other chest pain (principal); F17.210 Nicotine dependence, cigarettes, uncomplicated
CPT/HCPCS: 36415; 80048; 84443; 84484; 85025; 85379; 93005; 96360; 99283; 99284

== ENCOUNTER 2020-09-25 13:56 | Outpatient (REF) | payer MEDICAID, SELFPAY | END 2020-09-25 13:57 | disposition home or self-care (01) | LOC: HO.HOSX 13:56 | PROVIDERS: Visit Provider Orthopaedic Surgery | DX: Z13.89 Encounter for screening for other disorder (principal) ==

== ENCOUNTER 2020-10-10 14:55 | Outpatient (REF) | payer MEDICAID, SELFPAY ==
--- NOTE | 2020-10-11 07:59 | XR_ITS ---
EXAMINATION: XR SHOULDER, LEFT CLINICAL INFORMATION: Left shoulder pain. COMPARISON: Left shoulder radiographs dated 10/27/2018. TECHNIQUE: AP, scapular Y, and axillary views of the left shoulder. FINDINGS: No acute fracture or dislocation. No glenohumeral joint space narrowing or marginal osteophytes. Tiny acromioclavicular marginal osteophytes. No osseous erosion. No abnormal soft tissue calcification. XR/XR shoulder LT min 2V IMPRESSION: Mild acromioclavicular osteoarthritis, increased when compared to the prior examination.
== END 2020-10-10 14:56 | disposition home or self-care (01) ==
LOC: HO.HOSX 14:55
PROVIDERS: Visit Provider Orthopaedic Surgery
DX: M25.512 Pain in left shoulder (principal)
CPT/HCPCS: 73030

== ENCOUNTER → 2020-10-11 07:58 | Outpatient (BNVA) | payer MEDICAID, SELFPAY | PROVIDERS: Visit Provider Orthopaedic Surgery | DX: M25.512 Pain in left shoulder (principal) | CPT/HCPCS: 20605; 99202; J1020 ==

== ENCOUNTER 2020-12-01 19:48 | Emergency (ER) | payer MEDICAID, SELFPAY | END 2020-12-01 21:17 | disposition left against medical advice (07) | PROVIDERS: Emergency Provider Emergency Medicine | DX: Z20.822 Contact with and (suspected) exposure to COVID-19 (principal) ==

== ENCOUNTER 2020-12-14 08:15 | Outpatient (REF) | payer MEDICAID, SELFPAY ==
--- NOTE | ~2020-12-14 | MM_ITS ---
EXAMINATION: MM SCREENING DIGITAL BREAST TOMOSYNTHESIS, BILATERAL CLINICAL INFORMATION: Screening. Asymptomatic. The lifetime risk of breast cancer based on the Tyrer-Cuzick Model is 7.5%. COMPARISON: Mammography: 03/13/2018 and 01/09/2000 TECHNIQUE: Digital breast tomosynthesis is performed in both the craniocaudal and mediolateral oblique views along with computer-aided detection (CAD). Synthesized 2D images are generated from the tomosynthesis. FINDINGS: The breasts are heterogeneously dense, which may obscure small masses (ACR BI-RADS breast composition Category c). There is a stable parenchymal pattern within the right breast with no new abnormal dominant mass or suspicious grouping of microcalcifications. Within the left breast, there is a stable grouping of calcifications present. Within the inferior lateral aspect approximately 5 cm from nipple, there is a circumscribed 1.0 x 0.9 cm circumscribed density for which further evaluation with ultrasound is recommended. MM/MM tomosynthesis screening BI IMPRESSION: Left breast density for further evaluation with ultrasound. ASSESSMENT: BI-RADS 0: Incomplete - Need Additional Imaging Evaluation. RECOMMENDATION: Left breast ultrasound. Radiology department staff will contact the patient for additional imaging.
== END 2020-12-14 08:16 | disposition home or self-care (01) ==
LOC: HO.MAMMO 08:15
PROVIDERS: PCP Internal Medicine; Visit Provider Internal Medicine
DX: Z12.31 Encounter for screening mammogram for malignant neoplasm of breast (principal)
CPT/HCPCS: 77063; 77067

== ENCOUNTER 2020-12-20 13:41 | Outpatient (REF) | payer MEDICAID, SELFPAY ==
--- NOTE | ~2020-12-20 | US_ITS ---
EXAMINATION: US DIAGNOSTIC ULTRASOUND BREAST, LEFT CLINICAL INFORMATION: Recall from screening for circumscribed nodule mid lower outer quadrant left breast. COMPARISON: Mammography 12/14/2020, 03/13/2018. TECHNIQUE: Ultrasound left breast is targeted to the outer quadrant. Grayscale imaging and color Doppler are performed without and with harmonics. FINDINGS: There is a simple cyst 4:00 position 5 cm from nipple measuring 0.9 cm. This corresponds to the new circumscribed nodule on screening mammography. There is a incidental adjacent smaller satellite cyst measuring approximately 0.6 x 0.3 cm. There is no solid mass or architectural abnormality. Results are discussed with the patient at time of visit. US/US breast LT limited IMPRESSION: Incidental simple cyst 4:00 position 0.9 cm corresponding to nodule on recent mammography. ASSESSMENT: BI-RADS 2: Benign RECOMMENDATION: Routine annual mammography screening. This patient's information was entered into a reminder system with a target due date for their next mammogram.
== END 2020-12-20 13:42 | disposition home or self-care (01) ==
LOC: HO.MAMMO 13:41
PROVIDERS: PCP Internal Medicine; Visit Provider Internal Medicine
DX: N63.23 Unspecified lump in the left breast, lower outer quadrant (principal)
CPT/HCPCS: 76642

== ENCOUNTER 2021-01-01 15:25 | Emergency (ER) | payer MEDICAID, SELFPAY ==
[2021-01-01 15:48] VITALS: BP 156/102; PULSE 100; RESP 17; TEMP 36.6; O2SAT 99; BMI 25.8
--- NOTE | 2021-01-01 15:59 | ED.GENADULT ---
HPI - General Adult General Chief complaint: General Medical Stated complaint: bug bite Time Seen by Provider: 01/01/21 15:53 Source: patient Mode of arrival: ambulatory History of Present Illness HPI narrative: 45yo F presenting to the ED c/o abscess to L wrist since yesterday. Admits to similar sx in the past. Admits to subjective fever and chills. Denies drainage, trauma, numbness/tingling Onset (ago): day(s) Related Data Home Medications Medication Instructions Recorded Confirmed albuterol sulfate [ProAir HFA] 2 puff INHALATION Q4-6H PRN 08/30/20 08/30/20 ascorbic acid (vitamin C) [Vitamin 1,000 mg PO DAILY 08/30/20 08/30/20 C] aspirin 81 mg PO DAILY 08/30/20 08/30/20 atorvastatin 20 mg PO BEDTIME 08/30/20 08/30/20 clotrimazole 1 appl TOPICAL BID 08/30/20 08/30/20 docusate sodium 100 mg PO BID 08/30/20 08/30/20 hydroxyzine pamoate 50 mg PO BID PRN 08/30/20 08/30/20 ibuprofen 800 mg PO Q8H PRN 08/30/20 08/30/20 lidocaine [Lidoderm] 1 patch TOPICAL DAILY 08/30/20 08/30/20 mirtazapine 15 mg PO BEDTIME 08/30/20 08/30/20 ondansetron 4 mg PO Q8H PRN 08/30/20 08/30/20 oxycodone-acetaminophen 1 tab PO Q6H PRN 08/30/20 08/30/20 pantoprazole 40 mg PO DAILY 08/30/20 08/30/20 Previous Rx's Medication Instructions Recorded lorazepam 1 mg PO BID PRN 7 Days #10 tab 09/06/20 nicotine 21 mg TRANSDERMAL DAILY 21 Days 09/06/20 #21 ea olanzapine 20 mg PO BEDTIME 30 Days #30 tab 09/06/20 oxcarbazepine See Rx Instructions .ROUTE 09/06/20 .COMPLEX 30 Days #90 tab cephalexin 500 mg PO QID 7 Days #28 cap 01/01/21 doxycycline hyclate 100 mg PO BID 7 Days #14 tab 01/01/21 Allergies Allergy/AdvReac Type Severity Reaction Status Date / Time Penicillins [PENICILLINS] Allergy Severe DIFFICULTY Unverified 06/01/20 18:09 BREATHING Sulfa (Sulfonamide Allergy Severe DIFFICULTY Unverified 06/01/20 18:09 Antibiotics) BREATHING [SULFA (SULFONAMIDE ANTIBIOTICS)] latex [LATEX] Allergy Intermediate RASH Unverified 06/01/20 18:09 penicillin V Allergy Unknown Verified 05/31/19 00:00 vancomycin [VANCOMYCIN] Allergy Unknown UNKNOWN Unverified 06/01/20 18:09 LATEX Allergy Unknown Uncoded 05/31/19 00:00 Review of Systems Review of Systems: Constitutional: +subj Fever, + Chills Skin: +abscess, No rash Neuro: No Weakness, No Numbness, No Paresthesias Yes all other systems are reviewed and are negative [facility] Past Medical History Attestation statement: The following information was validated with the patient. Medical History Major depressive disorder, recurrent episode, severe with anxious distress Social History Social History (Updated 10/11/20 @ 08:11 by Mary Zapien CMA) Household Members: Family Housing: Apartment Alcohol intake: never Smoking Status: Current every day smoker Tobacco Type: Cigarette Packs Per Day: 1 Cigarettes Per Day: 20.0 Years Smoked: since age 13 Second Hand Smoke Exposure: Yes Substance Use Type: Marijuana Advance Directives: No Advance Directives Information Provided: Yes service: No Current occupational status: employed and unemployed Current occupation: Right Handed Sexual orientation: Straight/Heterosexual Physical Exam Vital Signs: Vital Signs: Last Vital Signs Temp 98 F 01/01/21 15:48 Pulse 100 01/01/21 15:48 Resp 17 01/01/21 15:48 BP 156/102 H 01/01/21 15:48 Pulse Ox 99 01/01/21 15:48 Body Mass Index 25.8 Const: General: cooperative, healthy appearing, comfortable and no acute distress Orientation/consciousness: patient oriented x3 Limitations: no limitations HENMT: Head: Yes normal to inspection Ears: hearing grossly normal bilaterally General nose exam: Normal external nose present Face and sinus: Yes normal facial exam Eyes: General: appearance normal, both eyes and all related structures EOM: EOMs intact bilaterally Neck: Neck: Yes normal visual inspection and Yes no meningeal signs Resp: Effort & Inspection: normal respiratory effort Auscultation: clear to auscultation bilaterally Cardio: Rate: regular rate Peripheral pulses: radial pulses present Skin: Other: +small hard indurated abscess noted to L wrist palmar aspect. +ttp, +slight erythema, no streaking, no warmth, no fluctaunce Neuro: General: patient oriented x3 and no meningeal signs Gait exam (Neuro): Normal gait present Extrem: General: Yes normal to inspection Medical Decision Making MDM Narrative Medical decision making narrative: On exam VSS, NAD well appearing, exam c/w indurated abscess with early cellulitis. Discharge Plan Discharge Clinical Impression: Abscess Patient Disposition: Home, Self-Care Instructions: Abscess (ED) Additional Instructions: take antibiotics as prescribed follow up with dermatology if area worsens return to the ED Prescriptions: New cephalexin 500 mg capsule 500 mg PO QID 7 Days Qty: 28 RF: 0 doxycycline hyclate 100 mg tablet 100 mg PO BID 7 Days Qty: 14 RF: 0 No Action ascorbic acid (vitamin C) [Vitamin C] 1,000 mg Tablet 1,000 mg PO DAILY RF: 0 atorvastatin 20 mg Tablet 20 mg PO BEDTIME RF: 0 ibuprofen 800 mg Tablet 800 mg PO Q8H PRN (Reason: Pain (Scale Score 1-3)) RF: 0 hydroxyzine pamoate 50 mg Capsule 50 mg PO BID PRN (Reason: Anxiety) RF: 0 aspirin 81 mg Tablet,Delayed Release (Dr/Ec) 81 mg PO DAILY RF: 0 oxycodone-acetaminophen 5-325 mg Tablet 1 tab PO Q6H PRN (Reason: Pain (Scale Score 4-6)) RF: 0 pantoprazole 40 mg Tablet,Delayed Release (Dr/Ec) 40 mg PO DAILY RF: 0 lidocaine [Lidoderm] 5 % Adhesive Patch,Medicated 1 patch TOPICAL DAILY RF: 0 docusate sodium 100 mg Capsule 100 mg PO BID RF: 0 mirtazapine 15 mg Tablet 15 mg PO BEDTIME RF: 0 albuterol sulfate [ProAir HFA] 90 mcg/actuation Hfa Aerosol Inhaler 2 puff INHALATION Q4-6H PRN (Reason: Shortness Of Breath) RF: 0 ondansetron 4 mg Tablet,Disintegrating 4 mg PO Q8H PRN (Reason: Nausea And Vomiting) RF: 0 clotrimazole 1 % Cream 1 appl TOPICAL BID RF: 0 nicotine 21 mg/24 hr Patch 24 Hour 21 mg transdermal DAILY 21 Days Qty: 21 RF: 0 oxcarbazepine 300 mg tablet See Rx Instructions .ROUTE .COMPLEX 30 Days Qty: 90 RF: 0 lorazepam 1 mg tablet 1 mg PO BID PRN (Reason: anxiety agitation) 7 Days Qty: 10 RF: 1 olanzapine 20 mg Tablet 20 mg PO BEDTIME 30 Days Qty: 30 RF: 0 Referrals: Leah Devlin PA [Physician Trauma Coordinator] - 2 days Joey Longoria MD [Physician] - 2 days Addis Oden PA-C [Physician Trauma Coordinator] - 2 days Print Language: Nepali
== END 2021-01-01 16:10 | disposition home or self-care (01) ==
PROVIDERS: Emergency Provider Emergency Medicine
DX: L02.414 Cutaneous abscess of left upper limb (principal); F17.210 Nicotine dependence, cigarettes, uncomplicated; Z71.6 Tobacco abuse counseling; Z79.899 Other long term (current) drug therapy; F12.90 Cannabis use, unspecified, uncomplicated
CPT/HCPCS: 99283

== ENCOUNTER 2021-01-04 10:55 | Outpatient (REF) | payer MEDICAID, SELFPAY | END 2021-01-04 10:56 | disposition home or self-care (01) | LOC: HO.XRAY 10:55 | PROVIDERS: PCP Internal Medicine; Visit Provider Orthopaedic Surgery | DX: M25.532 Pain in left wrist (principal); F17.210 Nicotine dependence, cigarettes, uncomplicated; Z79.899 Other long term (current) drug therapy | CPT/HCPCS: 99202 ==

== ENCOUNTER 2021-01-04 11:24 | Outpatient (REF) | payer MEDICAID, SELFPAY ==
--- NOTE | ~2021-01-04 | XR_ITS ---
EXAMINATION: XR FOREARM, LEFT CLINICAL INFORMATION: Pain in unspecified forearm. COMPARISON: None TECHNIQUE: AP and lateral views of the left forearm were obtained. FINDINGS: No acute fracture or malalignment. As seen on the lateral view, there are 2 small, punctate 1-2 mm ossific fragments at the volar aspect of the wrist at the level of the radiocarpal joint which may correspond to small loose bodies. Mild soft tissue swelling is present in this region. No acute fractures. Osteoarthritis of the elbow joint is characterized by marginal osteophytes, nonuniform joint space narrowing, and subchondral cystic change. Subchondral cystic changes most apparent at the capitulum small coronoid fossa. No elbow effusion. XR/XR forearm LT 2V IMPRESSION: 1. No acute osseous findings in the region of the wrist. 2. Two punctate calcific foci at the volar aspect of the wrist at the level of the radiocarpal joint may correspond to a loose bodies. 3. [id number] osteoarthritis at the elbow.
== END 2021-01-04 11:25 | disposition home or self-care (01) ==
LOC: HO.HOSX 11:24
PROVIDERS: Visit Provider Physician Assistant
DX: M79.632 Pain in left forearm (principal)
CPT/HCPCS: 73090

== ENCOUNTER → 2021-01-17 12:24 | Outpatient (BNVA) | payer MEDICAID, SELFPAY | PROVIDERS: PCP Internal Medicine; Visit Provider Orthopaedic Surgery | DX: S51.852A Open bite of left forearm, initial encounter (principal) | CPT/HCPCS: 99202 ==

== ENCOUNTER → 2021-01-30 14:48 | Outpatient (BNVA) | payer MEDICAID, SELFPAY | PROVIDERS: Visit Provider Internal Medicine | DX: L02.414 Cutaneous abscess of left upper limb (principal); M79.639 Pain in unspecified forearm | CPT/HCPCS: 99202 ==

== ENCOUNTER → 2021-02-20 10:13 | Outpatient (BNVA) | payer MEDICAID, SELFPAY | PROVIDERS: Visit Provider Internal Medicine | DX: M79.639 Pain in unspecified forearm (principal) | CPT/HCPCS: 99212 ==

== ENCOUNTER 2021-02-21 12:51 | Outpatient (RCR) | payer MEDICAID, SELFPAY | END 2021-03-28 12:57 | disposition home or self-care (01) | LOC: HO.WCC 12:51 | PROVIDERS: Visit Provider Surgery | DX: L13.0 Dermatitis herpetiformis (principal); F17.210 Nicotine dependence, cigarettes, uncomplicated; F12.90 Cannabis use, unspecified, uncomplicated; I10 Essential (primary) hypertension | CPT/HCPCS: 10060; 11106; 87071; 87205; 88304; 88305; 88312 ==

== ENCOUNTER 2021-08-07 09:03 | Emergency (ER) | payer OTHER, MEDICAID, SELFPAY ==
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
[2021-08-07 09:22] VITALS: BP 160/85; PULSE 96; RESP 16; TEMP 36.5; O2SAT 97; BMI 29.9
[2021-08-07 09:30] VITALS: BP 165/100; PULSE 110
[2021-08-07] MEDS: LORazepam 1 MG TABLET PO (10:08)
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
== END 2021-08-07 11:39 | disposition home or self-care (01) ==
PROVIDERS: Emergency Provider Emergency Medicine; PCP Internal Medicine
DX: S39.012A Strain of muscle, fascia and tendon of lower back, initial encounter (principal); S16.1XXA Strain of muscle, fascia and tendon at neck level, initial encounter; S09.90XA Unspecified injury of head, initial encounter; M54.2 Cervicalgia; M79.602 Pain in left arm; V43.62XA Car passenger injured in collision with other type car in traffic accident, initial encounter; Y93.9 Activity, unspecified; Y92.9 Unspecified place or not applicable; Y99.9 Unspecified external cause status; Z79.899 Other long term (current) drug therapy; F17.210 Nicotine dependence, cigarettes, uncomplicated; Z71.6 Tobacco abuse counseling
CPT/HCPCS: 70450; 72100; 72125; 73000; 99283; 99284

== ENCOUNTER 2021-08-13 10:38 | Emergency (ER) | payer OTHER, MEDICAID, SELFPAY ==
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
[2021-08-13 11:03] VITALS: BP 142/70; PULSE 95; RESP 16; TEMP 36.6; O2SAT 98; BMI 26.5
== END 2021-08-13 12:22 | disposition home or self-care (01) ==
PROVIDERS: Emergency Provider Emergency Medicine; PCP Internal Medicine
DX: S62.660A Nondisplaced fracture of distal phalanx of right index finger, initial encounter for closed fracture (principal); S20.211A Contusion of right front wall of thorax, initial encounter; R07.81 Pleurodynia; F17.210 Nicotine dependence, cigarettes, uncomplicated; V43.52XA Car driver injured in collision with other type car in traffic accident, initial encounter; Y93.9 Activity, unspecified; Y92.410 Unspecified street and highway as the place of occurrence of the external cause; Y99.9 Unspecified external cause status; Z71.6 Tobacco abuse counseling; Z79.899 Other long term (current) drug therapy
CPT/HCPCS: 29130; 71101; 73140; 99283

== ENCOUNTER 2021-08-14 10:06 | Outpatient (REF) | payer MEDICAID, SELFPAY ==
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
== END 2021-08-14 10:07 | disposition home or self-care (01) ==
LOC: HO.HOSX 10:06
PROVIDERS: PCP Internal Medicine; Visit Provider Orthopaedic Surgery
DX: S62.634A Displaced fracture of distal phalanx of right ring finger, initial encounter for closed fracture (principal); V89.2XXA Person injured in unspecified motor-vehicle accident, traffic, initial encounter
CPT/HCPCS: 73130

== ENCOUNTER 2021-08-21 11:28 | Emergency (ER) | payer OTHER, MEDICAID, SELFPAY ==
--- NOTE | ~2021-08-21 | XR_ITS ---
EXAMINATION: XR FINGER, RIGHT CLINICAL INFORMATION: Pain. History of old fracture. COMPARISON: Previous x-ray August 13 and 2020 TECHNIQUE: Three views of the right fourth finger. FINDINGS: There is question of an old volar plate fracture of the distal phalanx of the fourth finger intra-articular with the DIP joint. No acute fracture or dislocation is seen. There is soft tissue calcification adjacent to the radial or lateral aspect of the DIP joint of the fourth finger. Soft tissues are otherwise normal. XR/XR finger RT min 2V IMPRESSION: No acute fracture seen. Question old volar plate fracture of the distal phalanx of the fourth finger intra-articular with the DIP joint.
[2021-08-21 11:45] VITALS: BP 118/75; PULSE 96; RESP 18; TEMP 36.3; O2SAT 97; BMI 31.8
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
== END 2021-08-21 14:16 | disposition home or self-care (01) ==
PROVIDERS: Emergency Provider Emergency Medicine
DX: L03.011 Cellulitis of right finger (principal); F17.210 Nicotine dependence, cigarettes, uncomplicated; Z71.6 Tobacco abuse counseling; Z79.899 Other long term (current) drug therapy
CPT/HCPCS: 73140; 99283; 99284

== ENCOUNTER → 2021-09-04 09:01 | Outpatient (BNVA) | payer OTHER, MEDICAID, SELFPAY | PROVIDERS: Visit Provider Orthopaedic Surgery ==

== ENCOUNTER 2021-10-31 08:19 | Outpatient (REF) | payer OTHER, MEDICAID, SELFPAY ==
--- NOTE | ~2021-10-31 | XR_ITS ---
EXAMINATION: XR HAND, RIGHT CLINICAL INFORMATION: Pain in right hand. COMPARISON: None TECHNIQUE: PA, lateral, and oblique views of the right hand. FINDINGS: The bones and soft tissues are normal. No fracture. Alignment is anatomic. Joint spaces are maintained. No erosions or soft tissue calcifications. XR/XR hand RT min 3V IMPRESSION: Unremarkable right hand exam
== END 2021-10-31 08:20 | disposition home or self-care (01) ==
LOC: HO.HOSX 08:19
PROVIDERS: Visit Provider Orthopaedic Surgery
DX: S62.634A Displaced fracture of distal phalanx of right ring finger, initial encounter for closed fracture (principal)
CPT/HCPCS: 73130

== ENCOUNTER 2022-06-10 11:09 | Emergency (ER) | payer OTHER, MEDICAID, SELFPAY | END 2022-06-10 16:12 | disposition left against medical advice (07) | PROVIDERS: Emergency Provider Emergency Medicine; PCP Internal Medicine | DX: S61.011A Laceration without foreign body of right thumb without damage to nail, initial encounter (principal); W45.8XXA Other foreign body or object entering through skin, initial encounter; Y93.9 Activity, unspecified; Y92.9 Unspecified place or not applicable; Y99.9 Unspecified external cause status ==

== ENCOUNTER 2022-08-26 00:35 | Emergency (ER) | payer MEDICAID, SELFPAY ==
--- NOTE | ~2022-08-26 | CT_ITS ---
EXAMINATION: CT CERVICAL SPINE WITHOUT CONTRAST; UNENHANCED CT OF THE HEAD. CLINICAL INFORMATION: Fall. Loss of consciousness. Pain over hyoid COMPARISON: CT head and cervical spine 08/07/2021. TECHNIQUE: Routine unenhanced CT of the head with multiple coronal and sagittal reformatted images; routine unenhanced CT of the cervical spine with multiple coronal and sagittal reformatted images. This CT examination was performed using dose optimization techniques as appropriate, variously including the following: *Automated exposure control *Adjustment of mA and/or kV according to patient size (this includes techniques or standardized protocols for targeted exams where dose is matched to indication/reason for exam; i.e. extremities or head) *Use of iterative reconstruction technique DLP: 1080 mGy-cm FINDINGS: CT head: No intracranial hemorrhage, tumors or acute infarcts noted. The ventricles and sulci are normal in size and configuration. No focal parenchymal lesions of the brain or abnormal extra-axial fluid collections. The nose is partially excluded from the image [id number] as is origins of the anterior maxillary region. Moderate mucosal thickening and retained secretions with a gas-fluid level are noted within the right maxillary sinus. No orbital emphysema. No mastoid or middle ear cavity effusions noted. Soft tissue density likely representing cerumen is present in left external auditory canal. The visualized nasal bones are intact. CT cervical spine: No fractures or acute appearing subluxations are identified. Moderate-marked intervertebral disc space narrowing C6-C7. Moderate multilevel facet hypertrophic changes. No prevertebral fluid collections or soft tissue inflammatory changes noted. The hyoid bone is partially included in the image [id number] and demonstrates no abnormalities. The visualized larynx is normal in appearance. CT/CT head/brain wo IV con IMPRESSION: CT HEAD: 1. No acute intracranial abnormalities. 2. Right maxillary sinusitis. CT CERVICAL SPINE: 1. No acute abnormalities. 2. Multilevel chronic spondylosis.
--- NOTE | ~2022-08-26 | CT_ITS ---
EXAMINATION: CT CERVICAL SPINE WITHOUT CONTRAST; UNENHANCED CT OF THE HEAD. CLINICAL INFORMATION: Fall. Loss of consciousness. Pain over hyoid COMPARISON: CT head and cervical spine 08/07/2021. TECHNIQUE: Routine unenhanced CT of the head with multiple coronal and sagittal reformatted images; routine unenhanced CT of the cervical spine with multiple coronal and sagittal reformatted images. This CT examination was performed using dose optimization techniques as appropriate, variously including the following: *Automated exposure control *Adjustment of mA and/or kV according to patient size (this includes techniques or standardized protocols for targeted exams where dose is matched to indication/reason for exam; i.e. extremities or head) *Use of iterative reconstruction technique DLP: 1080 mGy-cm FINDINGS: CT head: No intracranial hemorrhage, tumors or acute infarcts noted. The ventricles and sulci are normal in size and configuration. No focal parenchymal lesions of the brain or abnormal extra-axial fluid collections. The nose is partially excluded from the image [id number] as is origins of the anterior maxillary region. Moderate mucosal thickening and retained secretions with a gas-fluid level are noted within the right maxillary sinus. No orbital emphysema. No mastoid or middle ear cavity effusions noted. Soft tissue density likely representing cerumen is present in left external auditory canal. The visualized nasal bones are intact. CT cervical spine: No fractures or acute appearing subluxations are identified. Moderate-marked intervertebral disc space narrowing C6-C7. Moderate multilevel facet hypertrophic changes. No prevertebral fluid collections or soft tissue inflammatory changes noted. The hyoid bone is partially included in the image [id number] and demonstrates no abnormalities. The visualized larynx is normal in appearance. CT/CT cervical spine wo IV con IMPRESSION: CT HEAD: 1. No acute intracranial abnormalities. 2. Right maxillary sinusitis. CT CERVICAL SPINE: 1. No acute abnormalities. 2. Multilevel chronic spondylosis.
[2022-08-26 00:44] VITALS: BP 163/84; BP 170/100; PULSE 92; PULSE 98; RESP 16; TEMP 36.8; O2SAT 97; BMI 24.1
--- NOTE | 2022-08-26 01:02 | ED.FALL ---
HPI - Fall General Chief Complaint: Fall Stated Complaint: fall Time Seen by Provider: 08/26/22 00:53 Source: patient and EMS Mode of arrival: EMS Limitations: no limitations History of Present Illness HPI Narrative: Patient comes to the emergency room complaining of frontal neck pain and headache after sustaining a fall. Patient states that she was taking a shower, patient states that there were some toys on the ground, patient stepped on them and fell backwards. Patient hit her head and her neck against the bathtub posteriorly. However, patient states that the worst is the pain on the front side of the neck. Patient denies any trouble swallowing or difficulty breathing. Patient states that he has very mild back pain but it is not bothering her as much. Patient thinks that she passed out, states that she remembers falling, but the next thing that she remembers is waking up in her bed Related Data Home Medications Medication Instructions Recorded Confirmed albuterol sulfate 90 mcg/actuation 2 puff inhalation Q4-6H PRN 08/30/20 02/20/21 aerosol inhaler (ProAir HFA) Shortness Of Breath ascorbic acid (vitamin C) 1,000 mg 1,000 mg PO DAILY 08/30/20 02/20/21 tablet (Vitamin C) aspirin 81 mg tablet,delayed 81 mg PO DAILY 08/30/20 02/20/21 release atorvastatin 20 mg tablet 20 mg PO BEDTIME 08/30/20 02/20/21 clotrimazole 1 % topical cream 1 appl topical BID 08/30/20 02/20/21 docusate sodium 100 mg capsule 100 mg PO BID 08/30/20 02/20/21 hydroxyzine pamoate 50 mg capsule 50 mg PO BID PRN Anxiety 08/30/20 02/20/21 ibuprofen 800 mg tablet 800 mg PO Q8H PRN Pain (Scale 08/30/20 02/20/21 Score 1-3) lidocaine 5 % topical patch 1 patch topical DAILY 08/30/20 02/20/21 (Lidoderm) mirtazapine 15 mg tablet 15 mg PO BEDTIME 08/30/20 02/20/21 ondansetron 4 mg disintegrating 4 mg PO Q8H PRN Nausea And Vomiting 08/30/20 02/20/21 tablet oxycodone-acetaminophen 5 mg-325 1 tab PO Q6H PRN Pain (Scale Score 08/30/20 02/20/21 mg tablet 4-6) pantoprazole 40 mg tablet,delayed 40 mg PO DAILY 08/30/20 02/20/21 release Previous Rx's Medication Instructions Recorded lorazepam 1 mg tablet 1 mg PO BID PRN anxiety agitation 09/06/20 7 days #10 tabs nicotine 21 mg/24 hr daily 21 mg transdermal DAILY 21 days 09/06/20 transdermal patch #21 ea olanzapine 20 mg tablet 20 mg PO BEDTIME 30 days #30 tabs 09/06/20 oxcarbazepine 300 mg tablet See Rx Instructions .Route 09/06/20 .COMPLEX 30 days #90 tabs cephalexin 500 mg capsule 500 mg PO QID 7 days #28 caps 01/01/21 doxycycline hyclate 100 mg tablet 100 mg PO BID 7 days #14 tabs 01/01/21 doxycycline hyclate 100 mg tablet 100 mg PO BID 30 days #60 tabs 01/30/21 valacyclovir 1 gram tablet 1,000 mg PO DAILY 30 days #30 tabs 01/30/21 (Valtrex) acetaminophen 300 mg-codeine 30 mg 1 tab PO Q8H PRN pain #14 tabs 08/07/21 tablet cyclobenzaprine 10 mg tablet 10 mg PO Q8H PRN Muscle spasm #14 08/07/21 tabs lidocaine 5 % topical patch 1 patch topical DAILY pain #15 ea 08/07/21 (Lidoderm) ibuprofen 600 mg tablet 600 mg PO Q8H PRN pain #20 tabs 08/13/21 acetaminophen 300 mg-codeine 30 mg 1 tab PO Q8H PRN pain #14 tabs 08/21/21 tablet cephalexin 500 mg capsule 500 mg PO Q6H 10 days #40 caps 08/21/21 clindamycin HCl 300 mg capsule 300 mg PO Q8H 10 days #30 caps 08/21/21 doxycycline monohydrate 100 mg 100 mg PO BID 10 days #20 caps 08/21/21 capsule acetaminophen 500 mg tablet 500 mg PO Q6H PRN fever or pain 08/26/22 #20 tabs cyclobenzaprine 5 mg tablet 5 mg PO TID PRN muscle spasm #10 08/26/22 tabs Allergies Allergy/AdvReac Type Severity Reaction Status Date / Time Penicillins [PENICILLINS] Allergy Severe DIFFICULTY Verified 02/16/22 08:49 BREATHING Sulfa (Sulfonamide Allergy Severe DIFFICULTY Verified 10/31/21 08:49 Antibiotics) BREATHING [SULFA (SULFONAMIDE ANTIBIOTICS)] latex [LATEX] Allergy Intermediate RASH Verified 10/31/21 08:49 penicillin V Allergy Unknown Unknown Verified 10/31/21 08:49 vancomycin [VANCOMYCIN] Allergy Unknown UNKNOWN Verified 10/31/21 08:49 LATEX Allergy Unknown unk Uncoded 10/31/21 08:49 Review of Systems Review of Systems: Constitutional : No Weight loss, No Fever, No Chills, No Night Sweats, No Fatigue, No Malaise ENT/Mouth : No Hearing loss, No Ear Pain, No Nasal Congestion, No Sinus Pain, No Hoarseness, No sore throat, No Rhinorrhea, No Swallowing Difficulty Eyes: No Eye Pain, No Swelling, No Redness, No Foreign Body, No Discharge, No Vision Changes Cardiovascular : No Chest Pain, No SOB, No Dyspnea on Exertion, No Orthopnea, No Edema, No Palpitations Respiratory : No Cough, No Sputum, No Wheezing, No Smoke Exposure, No Dyspnea Gastrointestinal : No Nausea, No Vomiting, No Diarrhea, No Constipation, No abdominal Pain, No Hematochezia, No Melena Genitourinary : no irregular bleeding, No Dysuria, No Urinary Frequency, No Hematuria, No Urinary Incontinence, No Urgency, No Flank Pain, No Urinary Flow Changes, No Hesitancy Musculoskeletal : Complaining of neck pain front and back Skin : No Skin Lesions, No rash Neuro : No Weakness, No Numbness, No Paresthesias, No Loss of Consciousness, No Dizziness, No Headache Psych : No Anxiety/Panic, No Depression, No SI/HI/AH/VH, No Social Issues, Heme/Lymph: No Bruising, No Bleeding,No Lymphadenopathy Endocrine : No Polyuria, No Polydipsia, No Temperature Intolerance PMF Past Medical History Medical History Major depressive disorder, recurrent episode, severe with anxious distress Surgical History H/O eye surgery H/O hemorrhoidectomy History of appendectomy History of partial hysterectomy Family History Family History (Reviewed 10/31/21 @ 08:50 by Tiana David [facility]) Father Bone cancer Mother Ovarian cancer Sister Mouth cancer Social History Social History Household Members: Family Housing: Apartment Do you presently have visiting nurse or other home services: No Alcohol intake: never Cigarette Packs Per Day: 1 Cigarettes Per Day: 20.0 Years Smoked: since age 13 Smoked in Last 30 Days: Yes Second Hand Smoke Exposure: Yes Use of substances other than those prescribed or required for medical reasons: Yes Substance Use Type: Marijuana Substance Use Frequency: Daily Advance Directives: No service: No Current occupational status: unemployed Current occupation: Right Handed Sexual orientation: Straight/Heterosexual Physical Exam Vital Signs: Vital Signs: Last Vital Signs Temp 98.2 F 08/26/22 00:44 Pulse 77 08/26/22 02:27 Resp 14 08/26/22 02:27 BP 192/101 H 08/26/22 02:27 Pulse Ox 100 08/26/22 02:27 O2 Del Method 08/26/22 02:27 BMI result Body Mass Index 24.1 Const: Other: Appearance: Alert. Oriented X3. No acute distress. Eyes: Pupil on the right eye, round and reactive to light. 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 No oropharyngeal edema Neck: On C-collar, complaining of pain throughout the cervical spine and over the hyoid bone, no palpable step-offs CVS: Normal heart rate and rhythm. Pulses normal. Normal S1 and S2 Respiratory: No respiratory distress. Breath sounds normal. No Wheezing. No rales Abdomen: Soft and nontender. No rigidity. No distention. Skin: Skin warm and dry. Normal skin color. Normal skin turgor. Extremities: No lower extremity edema. No Lacerations. No Rash Neuro: Oriented X 3. No motor deficit. No sensory deficit. Moving all extremities. No slurred speech. CN 2 through 12 grossly intact Psych: calm, cooperative, normal affect Course Course Course Narrative: Patient is extremely anxious. Patient was given 1 dose of IM morphine. CT scans of the cervical spine and head pending. Head CT of cervical spine CT within normal limits. Patient has not had any changes on physical exam on her neck. There is no swelling, no ecchymosis, no oropharyngeal edema. Patient arguing with her partner hit her room, they were both throwing things at each other, patient is screamed to partner in full sentences with normal voice, which she changes when a provider is in the room to more muffled tone voice. no difficulty breathing Medications Administered Discontinued Medications Generic Name Dose Route Start Last Admin Trade Name Pascale PRN Reason Stop Dose Admin Morphine Sulfate 4 mg 08/26/22 01:01 08/26/22 01:28 Morphine Sulfate 4 Mg/Ml Cartridge IM 08/26/22 01:02 4 mg ONCE ONE Administration Protocol Medical Decision Making Medical Decision Making Differential Diagnoses: Differential diagnosis (Cervical fracture, hyoid bone fracture, contusion) Discharge Plan Discharge Clinical Impression: Fall, Neck pain Patient Disposition: Home, Self-Care Instructions: Fall Prevention (ED), Acute Neck Pain (ED) Additional Instructions: Please follow-up with your primary care physician tomorrow. If you have any worsening or new symptoms, please return to the emergency room or call 911 Prescriptions: New acetaminophen 500 mg tablet 500 mg PO Q6H PRN (Reason: fever or pain) Qty: 20 0RF cyclobenzaprine 5 mg tablet 5 mg PO TID PRN (Reason: muscle spasm) Qty: 10 0RF No Action ascorbic acid (vitamin C) [Vitamin C] 1,000 mg Tablet 1,000 mg PO DAILY atorvastatin 20 mg Tablet 20 mg PO BEDTIME ibuprofen 800 mg Tablet 800 mg PO Q8H PRN (Reason: Pain (Scale Score 1-3)) hydroxyzine pamoate 50 mg Capsule 50 mg PO BID PRN (Reason: Anxiety) aspirin 81 mg Tablet,Delayed Release (Dr/Ec) 81 mg PO DAILY oxycodone-acetaminophen 5-325 mg Tablet 1 tab PO Q6H PRN (Reason: Pain (Scale Score 4-6)) pantoprazole 40 mg Tablet,Delayed Release (Dr/Ec) 40 mg PO DAILY lidocaine [Lidoderm] 5 % Adhesive Patch,Medicated 1 patch TOPICAL DAILY docusate sodium 100 mg Capsule 100 mg PO BID mirtazapine 15 mg Tablet 15 mg PO BEDTIME albuterol sulfate [ProAir HFA] 90 mcg/actuation Hfa Aerosol Inhaler 2 puff INHALATION Q4-6H PRN (Reason: Shortness Of Breath) ondansetron 4 mg Tablet,Disintegrating 4 mg PO Q8H PRN (Reason: Nausea And Vomiting) clotrimazole 1 % Cream 1 appl TOPICAL BID nicotine 21 mg/24 hr Patch 24 Hour 21 mg transdermal DAILY 21 Days Qty: 21 0RF oxcarbazepine 300 mg tablet See Rx Instructions .ROUTE .COMPLEX 30 Days Qty: 90 0RF Rx Instructions: 1 tab 300 mg in the am 2 tabs 600 mgbedtime lorazepam 1 mg tablet 1 mg PO BID PRN (Reason: anxiety agitation) 7 Days Qty: 10 1RF olanzapine 20 mg Tablet 20 mg PO BEDTIME 30 Days Qty: 30 0RF cephalexin 500 mg capsule 500 mg PO QID 7 Days Qty: 28 0RF doxycycline hyclate 100 mg tablet 100 mg PO BID 7 Days Qty: 14 0RF ibuprofen 600 mg tablet 600 mg PO Q8H PRN (Reason: pain) Qty: 20 0RF cyclobenzaprine 10 mg tablet 10 mg PO Q8H PRN (Reason: Muscle spasm) Qty: 14 0RF acetaminophen-codeine 300-30 mg tablet 1 tab PO Q8H PRN (Reason: pain) Qty: 14 0RF lidocaine [Lidoderm] 5 % adhesive patch,medicated 1 patch topical DAILY Qty: 15 0RF Rx Instructions: leave on most painful area for up to 12 hrs. May be substituted acetaminophen-codeine 300-30 mg tablet 1 tab PO Q8H PRN (Reason: pain) Qty: 14 0RF doxycycline monohydrate 100 mg capsule 100 mg PO BID 10 Days Qty: 20 0RF cephalexin 500 mg capsule 500 mg PO Q6H 10 Days Qty: 40 0RF clindamycin HCl 300 mg capsule 300 mg PO Q8H 10 Days Qty: 30 0RF doxycycline hyclate 100 mg tablet 100 mg PO BID 30 Days Qty: 60 1RF valacyclovir [Valtrex] 1 gram tablet 1,000 mg PO DAILY 30 Days Qty: 30 1RF Stand Alone Forms: Work/School Release
[2022-08-26 01:28] VITALS: RESP 16
[2022-08-26] MEDS: Morphine Sulfate 4 MG/ML CARTRIDGE IM (01:28)
[2022-08-26 02:27] VITALS: BP 192/101; PULSE 77; RESP 14; O2SAT 100
--- NOTE | 2022-08-26 03:26 | PC.NURSE ---
Dr Evans is aware of BP 170/89.
== END 2022-08-26 03:27 | disposition home or self-care (01) ==
PROVIDERS: Emergency Provider Emergency Medicine; PCP Internal Medicine
DX: Z04.3 Encounter for examination and observation following other accident (principal); M54.2 Cervicalgia; F17.210 Nicotine dependence, cigarettes, uncomplicated; F12.90 Cannabis use, unspecified, uncomplicated; Z79.82 Long term (current) use of aspirin; Z79.02 Long term (current) use of antithrombotics/antiplatelets; Z79.899 Other long term (current) drug therapy
CPT/HCPCS: 70450; 72125; 96372; 99284; J2270

== ENCOUNTER 2022-11-29 12:41 | Emergency (ER) | payer MEDICAID, SELFPAY ==
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
[2022-11-29 12:50] VITALS: BP 129/80; PULSE 123; RESP 18; TEMP 36.6; O2SAT 99; BMI 25.7
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
[2022-11-29 16:00] VITALS: BP 138/91; PULSE 106; RESP 18; TEMP 37.4; O2SAT 98
--- NOTE | 2022-11-29 16:10 | MHC.EDTECH ---
this pct just assumed care of pt ,vitals sign taken pt waiting to see provider .
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
== END 2022-11-29 16:52 | disposition home or self-care (01) ==
PROVIDERS: Emergency Provider Emergency Medicine
DX: N76.2 Acute vulvitis (principal); Z79.899 Other long term (current) drug therapy
CPT/HCPCS: 99283

== ENCOUNTER 2023-03-21 06:37 | Emergency (ER) | payer MEDICAID, SELFPAY ==
[2023-03-21 06:40] VITALS: BP 125/84; PULSE 105; RESP 18; TEMP 36.1; O2SAT 99; BMI 24.9
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
--- NOTE | 2023-03-21 07:27 | PC.NURSE ---
pt alert and oriented x3, walked in to do initial assessment and pt stated that she was leaving d/t provider discharging the, pt was requesting something for the pain on her finger, offered an icepack but she already had one so i offered to immobilize her fingers with a bandage, placed the three outside of her fingers together to stabilize them and wrapped the bandage around them/her wrist to keep the pt from moving them, pt stated that the bandage made them feel better, pt left the facility.
--- NOTE | 2023-03-21 07:44 | PC.NURSE ---
dr. ely put in discharge paperwork, went to go give the pt the paperwork/ready for her to sign, pt left without discharge paperwork being signed.
== END 2023-03-21 07:46 | disposition home or self-care (01) ==
PROVIDERS: Emergency Provider Emergency Medicine Emergency Medical Services; PCP Internal Medicine
DX: S60.041A Contusion of right ring finger without damage to nail, initial encounter (principal); X58.XXXA Exposure to other specified factors, initial encounter; Y93.9 Activity, unspecified; Y92.9 Unspecified place or not applicable; Y99.9 Unspecified external cause status; F17.210 Nicotine dependence, cigarettes, uncomplicated; Z71.6 Tobacco abuse counseling; Z79.899 Other long term (current) drug therapy
CPT/HCPCS: 73120; 99283

== ENCOUNTER 2023-06-06 11:39 | Outpatient (REF) | payer MEDICAID, SELFPAY ==
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
== END 2023-06-06 11:40 | disposition home or self-care (01) ==
LOC: HO.HHCX 11:39
PROVIDERS: Visit Provider Emergency Medicine
DX: S67.22XA Crushing injury of left hand, initial encounter (principal); X58.XXXA Exposure to other specified factors, initial encounter; Y93.9 Activity, unspecified; Y92.9 Unspecified place or not applicable; Y99.9 Unspecified external cause status
CPT/HCPCS: 73130

== ENCOUNTER 2023-08-19 09:54 | Outpatient (REF) | payer MEDICAID, SELFPAY | END 2023-08-19 09:55 | disposition home or self-care (01) | LOC: HO.HOSX 09:54 | PROVIDERS: Visit Provider Physician Assistant | DX: Z13.89 Encounter for screening for other disorder (principal) ==

== ENCOUNTER 2024-01-05 18:07 | Outpatient (REF) | payer MEDICAID, SELFPAY ==
[2024-01-08 00:08] LABS: Trichomonas (NAAT) DETECTED (NOT DETECTED)
[2024-01-08 02:24] LABS: HPV mRNA E6/E7 rflx Not Detected (Not Detected)
[2024-01-09 14:54] LABS: C. trachomatis RNA TMA NOT DETECTED (NOT DETECTED); N. gonorrhoeae RNA TMA NOT DETECTED (NOT DETECTED)
== END 2024-01-05 18:08 | disposition home or self-care (01) ==
LOC: HO.HHCLNP 18:07
PROVIDERS: Visit Provider Nurse Practitioner Family
DX: Z01.419 Encounter for gynecological examination (general) (routine) without abnormal findings (principal)
CPT/HCPCS: 36415; 87491; 87591; 87624; 87661; 88142

== ENCOUNTER 2024-05-25 09:12 | Emergency (ER) | payer MEDICAID, SELFPAY ==
[2024-05-25 10:01] VITALS: BP 129/93; PULSE 90; RESP 16; O2SAT 97; BMI 175.6
--- NOTE | 2024-05-25 11:07 | ED.GENADULT ---
HPI - General Adult General Chief complaint: Eye Problems Stated complaint: L eye swelling Time Seen by Provider: 05/25/24 10:44 Source: patient Mode of arrival: ambulatory Limitations: no limitations History of Present Illness ED Provider: Trinity Mccain PA-C HPI narrative: 48 yo female with PMH including depression, anxiety, asthma, comes in with complaints of pain, swelling and a pimple on the left upper eyelid, since 05/11/24. Reports has been seeing PCP for this same eyelid concern and is s/p conservative treatments including warm compresses, and PO oral ABX (unsure which). States had a PCP appointment today, however since this has not resolved with these interventions, the PCP requested that pt come into ED for lancing as they are unable to complete in office. Denies visual changes, or discharge, erythema and edema are localized to the area of pimple. MD complaint: left upper eyelid swelling Onset (ago): week(s) Location: head, mouth and left Radiation: non-radiation Severity: moderate Quality: aching Pain Consistency: constant Associated symptoms: denies other symptoms Treatments prior to arrival: other (abx) Related Data Home Medications ?Medication ?Instructions ?Recorded ?Confirmed albuterol sulfate 90 mcg/actuation 2 puff inhalation Q4-6H PRN 08/30/20 02/20/21 aerosol inhaler (ProAir HFA) Shortness Of Breath ascorbic acid (vitamin C) 1,000 mg 1,000 mg PO DAILY 08/30/20 02/20/21 tablet (Vitamin C) aspirin 81 mg tablet,delayed 81 mg PO DAILY 08/30/20 02/20/21 release atorvastatin 20 mg tablet 20 mg PO BEDTIME 08/30/20 02/20/21 clotrimazole 1 % topical cream 1 appl topical BID 08/30/20 02/20/21 docusate sodium 100 mg capsule 100 mg PO BID 08/30/20 02/20/21 hydroxyzine pamoate 50 mg capsule 50 mg PO BID PRN Anxiety 08/30/20 02/20/21 ibuprofen 800 mg tablet 800 mg PO Q8H PRN Pain (Scale 08/30/20 02/20/21 Score 1-3) lidocaine 5 % topical patch 1 patch topical DAILY 08/30/20 02/20/21 (Lidoderm) mirtazapine 15 mg tablet 15 mg PO BEDTIME 08/30/20 02/20/21 ondansetron 4 mg disintegrating 4 mg PO Q8H PRN Nausea And Vomiting 08/30/20 02/20/21 tablet oxycodone-acetaminophen 5 mg-325 1 tab PO Q6H PRN Pain (Scale Score 08/30/20 02/20/21 mg tablet 4-6) pantoprazole 40 mg tablet,delayed 40 mg PO DAILY 08/30/20 02/20/21 release Previous Rx's ?Medication ?Instructions ?Recorded lorazepam 1 mg tablet 1 mg PO BID PRN anxiety agitation 09/06/20 7 days #10 tabs nicotine 21 mg/24 hr daily 21 mg transdermal DAILY 21 days 09/06/20 transdermal patch #21 ea olanzapine 20 mg tablet 20 mg PO BEDTIME 30 days #30 tabs 09/06/20 oxcarbazepine 300 mg tablet See Rx Instructions .Route 09/06/20 .COMPLEX 30 days #90 tabs cephalexin 500 mg capsule 500 mg PO QID 7 days #28 caps 01/01/21 doxycycline hyclate 100 mg tablet 100 mg PO BID 7 days #14 tabs 01/01/21 doxycycline hyclate 100 mg tablet 100 mg PO BID 30 days #60 tabs 01/30/21 valacyclovir 1 gram tablet 1,000 mg PO DAILY 30 days #30 tabs 01/30/21 (Valtrex) acetaminophen 300 mg-codeine 30 mg 1 tab PO Q8H PRN pain #14 tabs 08/07/21 tablet cyclobenzaprine 10 mg tablet 10 mg PO Q8H PRN Muscle spasm #14 08/07/21 tabs lidocaine 5 % topical patch 1 patch topical DAILY pain #15 ea 08/07/21 (Lidoderm) ibuprofen 600 mg tablet 600 mg PO Q8H PRN pain #20 tabs 08/13/21 acetaminophen 300 mg-codeine 30 mg 1 tab PO Q8H PRN pain #14 tabs 08/21/21 tablet cephalexin 500 mg capsule 500 mg PO Q6H 10 days #40 caps 08/21/21 clindamycin HCl 300 mg capsule 300 mg PO Q8H 10 days #30 caps 08/21/21 doxycycline monohydrate 100 mg 100 mg PO BID 10 days #20 caps 08/21/21 capsule acetaminophen 500 mg tablet 500 mg PO Q6H PRN fever or pain 08/26/22 #20 tabs cyclobenzaprine 5 mg tablet 5 mg PO TID PRN muscle spasm #10 08/26/22 tabs hydrocodone 5 mg-acetaminophen 325 1 tab PO Q8H PRN pain #6 tabs 11/29/22 mg tablet levofloxacin 500 mg tablet 500 mg PO DAILY 7 days #7 tabs 11/29/22 hydrocodone 5 mg-acetaminophen 325 1 tab PO Q6H PRN pain #7 tabs 11/30/22 mg tablet levofloxacin 500 mg tablet 500 mg PO Q24H #6 tabs 11/30/22 ibuprofen 400 mg tablet 400 mg PO Q6H PRN pain #20 tabs 03/21/23 cephalexin 500 mg capsule 500 mg PO Q6H 3 days #12 caps 05/25/24 Allergies Allergy/AdvReac Type Severity Reaction Status Date / Time Penicillins [PENICILLINS] Allergy Severe DIFFICULTY Verified 11/29/22 12:50 BREATHING Sulfa (Sulfonamide Allergy Severe DIFFICULTY Verified 11/29/22 12:50 Antibiotics) BREATHING [SULFA (SULFONAMIDE ANTIBIOTICS)] latex [LATEX] Allergy Intermediate RASH Verified 11/29/22 12:50 penicillin V Allergy Unknown Unknown Verified 11/29/22 12:50 vancomycin [VANCOMYCIN] Allergy Unknown UNKNOWN Verified 11/29/22 12:50 erythromycin base Allergy Anaphylaxis Verified 05/25/24 10:02 LATEX Allergy Unknown unk Uncoded 11/29/22 12:50 Review of Systems Review of Systems: Yes all other systems are reviewed and are negative PMFSH Past Medical History Medical History Major depressive disorder, recurrent episode, severe with anxious distress Surgical History H/O eye surgery H/O hemorrhoidectomy History of appendectomy History of partial hysterectomy Family History Family History Father Bone cancer Mother Ovarian cancer Sister Mouth cancer Social History Social History Household Members: Family Housing: Apartment Do you presently have visiting nurse or other home services: No Alcohol intake: never Comment: asleep Cigarette Packs Per Day: 1 Cigarettes Per Day: 20.0 Years Smoked: since age 13 Second Hand Smoke Exposure: Yes Substance Use Type: Marijuana Advance Directives: No Advance Directives Information Provided: No service: No Current occupational status: unemployed Current occupation: Right Handed Sexual orientation: Straight/Heterosexual Physical Exam ED Vital Signs: Vital Signs - 24 hr 05/25/24 10:01 Pulse Rate 90 Respiratory Rate 16 Blood Pressure 129/93 H Pulse Oximetry 97 Oxygen Delivery Method Room Air BMI result Body Mass Index 175.6 Appearance: Alert. Oriented X3. No acute distress. HEENT: normocephalic, atraumatic. left upper eyelid with a 0.5cm area of swelling, erythema, tenderness and central fluctuance. normal inspection of the periorbital structures. PERRLA, EOMI. CVS: Normal heart rate and rhythm. Pulses normal. Respiratory: No respiratory distress. Skin: Skin warm and dry. Normal skin color. Normal skin turgor. No rashes. Extremities: normal inspection x4, no joint swelling Neuro: Oriented X 3. Grossly normal, nonfocal Procedures Abscess I/D Site: face Side (if applicable): left Technique: other (18 gauge needle) Sent for culture/gram staining?: No Irrigation: No Packing used?: none Medical Decision Making Medical Decision Making MDM Narrative: 48-year-old female presents the ER for evaluation of left upper eyelid swelling consistent with an external hordeolum. All of her other eye structures are normal to inspection, no swelling to suggest deeper eye infection. The area was cleansed and incised with an 18 gauge needle with drainage of purulent material. Symptoms improved after this. We discussed importance of warm compresses. Stable for discharge home with outpatient follow-up as needed. Differential Diagnosis Differential Diagnoses: The differential diagnosis associated with the presentation includes Internal hordeolum, external hordeolum, periorbital cellulitis, orbital abscess, chalazion External Record Review External record reviewed: Outpatient record, Prior outpatient labs and Prior outpatient radiology Prescription Management I considered prescription management with: Pain Medication and Antibiotic Critical Care Time Critical Care Time Critical Care Time: No Discharge Plan Discharge Clinical Impression: Hordeolum external Qualifiers: Laterality: left Eyelid: upper Qualified Code(s): H00.014 - Hordeolum externum left upper eyelid Patient Disposition: Home, Self-Care Instructions: Bryanna (ED) Additional Instructions: use warm compresses to the area 4-5 times per day take the prescribed antibiotics as directed, complete the entire course and do not miss any doses If you develop new or worsening symptoms call 911 or come back to the ER for further evaluation. Prescriptions: New cephalexin 500 mg capsule 500 mg PO Q6H 3 Days Qty: 12 0RF No Action ascorbic acid (vitamin C) [Vitamin C] 1,000 mg Tablet 1,000 mg PO DAILY atorvastatin 20 mg Tablet 20 mg PO BEDTIME ibuprofen 800 mg Tablet 800 mg PO Q8H PRN (Reason: Pain (Scale Score 1-3)) hydroxyzine pamoate 50 mg Capsule 50 mg PO BID PRN (Reason: Anxiety) aspirin 81 mg Tablet,Delayed Release (Dr/Ec) 81 mg PO DAILY oxycodone-acetaminophen 5-325 mg Tablet 1 tab PO Q6H PRN (Reason: Pain (Scale Score 4-6)) pantoprazole 40 mg Tablet,Delayed Release (Dr/Ec) 40 mg PO DAILY lidocaine [Lidoderm] 5 % Adhesive Patch,Medicated 1 patch TOPICAL DAILY docusate sodium 100 mg Capsule 100 mg PO BID mirtazapine 15 mg Tablet 15 mg PO BEDTIME albuterol sulfate [ProAir HFA] 90 mcg/actuation Hfa Aerosol Inhaler 2 puff INHALATION Q4-6H PRN (Reason: Shortness Of Breath) ondansetron 4 mg Tablet,Disintegrating 4 mg PO Q8H PRN (Reason: Nausea And Vomiting) clotrimazole 1 % Cream 1 appl TOPICAL BID nicotine 21 mg/24 hr Patch 24 Hour 21 mg transdermal DAILY 21 Days Qty: 21 0RF oxcarbazepine 300 mg tablet See Rx Instructions .ROUTE .COMPLEX 30 Days Qty: 90 0RF Rx Instructions: 1 tab 300 mg in the am 2 tabs 600 mgbedtime lorazepam 1 mg tablet 1 mg PO BID PRN (Reason: anxiety agitation) 7 Days Qty: 10 1RF olanzapine 20 mg Tablet 20 mg PO BEDTIME 30 Days Qty: 30 0RF cephalexin 500 mg capsule 500 mg PO QID 7 Days Qty: 28 0RF doxycycline hyclate 100 mg tablet 100 mg PO BID 7 Days Qty: 14 0RF ibuprofen 600 mg tablet 600 mg PO Q8H PRN (Reason: pain) Qty: 20 0RF acetaminophen 500 mg tablet 500 mg PO Q6H PRN (Reason: fever or pain) Qty: 20 0RF cyclobenzaprine 5 mg tablet 5 mg PO TID PRN (Reason: muscle spasm) Qty: 10 0RF levofloxacin 500 mg tablet 500 mg PO DAILY 7 Days Qty: 7 0RF hydrocodone-acetaminophen 5-325 mg tablet 1 tab PO Q8H PRN (Reason: pain) Qty: 6 0RF Rx Instructions: Partial Fill upon patient request. levofloxacin 500 mg tablet 500 mg PO Q24H Qty: 6 0RF hydrocodone-acetaminophen 5-325 mg tablet 1 tab PO Q6H PRN (Reason: pain) Qty: 7 0RF Rx Instructions: Partial Fill upon patient request. cyclobenzaprine 10 mg tablet 10 mg PO Q8H PRN (Reason: Muscle spasm) Qty: 14 0RF acetaminophen-codeine 300-30 mg tablet 1 tab PO Q8H PRN (Reason: pain) Qty: 14 0RF lidocaine [Lidoderm] 5 % adhesive patch,medicated 1 patch topical DAILY Qty: 15 0RF Rx Instructions: leave on most painful area for up to 12 hrs. May be substituted acetaminophen-codeine 300-30 mg tablet 1 tab PO Q8H PRN (Reason: pain) Qty: 14 0RF doxycycline monohydrate 100 mg capsule 100 mg PO BID 10 Days Qty: 20 0RF cephalexin 500 mg capsule 500 mg PO Q6H 10 Days Qty: 40 0RF clindamycin HCl 300 mg capsule 300 mg PO Q8H 10 Days Qty: 30 0RF ibuprofen 400 mg tablet 400 mg PO Q6H PRN (Reason: pain) Qty: 20 0RF doxycycline hyclate 100 mg tablet 100 mg PO BID 30 Days Qty: 60 1RF valacyclovir [Valtrex] 1 gram tablet 1,000 mg PO DAILY 30 Days Qty: 30 1RF Print Language: Macanese
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
[2024-05-25 11:36] VITALS: BP 129/93; PULSE 90; RESP 16; TEMP 36.1; O2SAT 97
== END 2024-05-25 11:37 | disposition home or self-care (01) ==
PROVIDERS: Emergency Provider Emergency Medicine Emergency Medical Services
DX: H00.014 Hordeolum externum left upper eyelid (principal); H00.034 Abscess of left upper eyelid; F41.8 Other specified anxiety disorders; J45.909 Unspecified asthma, uncomplicated; F17.210 Nicotine dependence, cigarettes, uncomplicated; F12.90 Cannabis use, unspecified, uncomplicated; Z79.899 Other long term (current) drug therapy
CPT/HCPCS: 67700; 99282; 99283; 99284

== ENCOUNTER 2024-08-05 10:58 | Emergency (ER) | payer MEDICAID, SELFPAY ==
--- NOTE | ~2024-08-05 | CT_ITS ---
EXAMINATION: CT HEAD WITHOUT CONTRAST CLINICAL INFORMATION: headache COMPARISON: CT dated August 26, 2022 TECHNIQUE: Contiguous axial imaging was performed from the skull base to vertex without intravenous administration of contrast. This CT examination was performed using dose optimization techniques as appropriate, variously including the following: *Automated exposure control *Adjustment of mA and/or kV according to patient size (this includes techniques or standardized protocols for targeted exams where dose is matched to indication/reason for exam; i.e. extremities or head) *Use of iterative reconstruction technique DLP: 628 mGy-cm FINDINGS: No acute intracranial hemorrhage, mass effect, midline shift, hydrocephalus or herniation. Marlow-white matter differentiation is normal. Posterior cranial fossa contents demonstrated no acute intracranial hemorrhage or mass effect. Sellar/suprasellar region demonstrated no gross masses or hemorrhage. Craniocervical junction is intact and normal. Bony calvarium is intact. Skull base is intact. Old traumatic deformity, left lamina papyracea. Mucosal thickening and secretions, right maxillary sinus. Mucosal thickening ethmoid air cells. Tympanic cavities and mastoid air cells are aerated. High riding left internal jugular bulb. CT/CT head/brain wo IV con IMPRESSION: No acute intracranial hemorrhage or acute brain abnormality by CT. Acute on chronic right maxillary sinus disease. Electronically signed by: Amauri Soria MD 08/05/2024 12:57 PM [facility]
[2024-08-05 11:03] VITALS: BP 156/93; PULSE 108; RESP 20; TEMP 36.6; O2SAT 100; BMI 27.3
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
[2024-08-05 11:35] VITALS: BP 132/88; PULSE 102; RESP 18; TEMP 37.3; O2SAT 97
[2024-08-05] MEDS: Cyclobenzaprine HCl 10 MG TABLET PO (11:46)
[2024-08-05] MEDS: Butalb/Acetamin/Caff 50/325/40 TABLET 1 TAB PO (11:46)
[2024-08-05 11:48] LABS: MANUAL DIFF FLAG NO
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
--- NOTE | 2024-08-05 11:50 | MHC.EDTECH ---
labs drawn and sent to lab
[2024-08-05 11:52] LABS: Basophils Absolute Auto 0.1 X10*3/uL (0.0-0.2); Basophils Percent Auto 0.9 % (0-2); Eosinophils Absolute Auto 0.5 X10*3/uL (0.0-0.4); Eosinophils Percent Auto 4.7 % (0-4); Hematocrit 39.4 % (37.0-47.0); Hemoglobin 13.6 g/dl (12.0-16.0); Imm Gran Abs Auto 0.04 X10*3/uL (0.00-0.03); Imm Gran Pct Auto 0.4 % (0.0-0.4); Lymphocytes Absolute Auto 4.4 X10*3/uL (1.2-4.9); Lymphocytes Percent Auto 41.8 % (20-40); Mean Corpuscular HGB Conc 34.5 g/dl (31.0-35.0); Mean Corpuscular Hemoglobin 30.1 pg (27.0-33.0); Mean Corpuscular Volume 87.2 fL (80.0-98.0); Mean Platelet Volume 8.8 fL (9.4-12.3); Monocytes Absolute Auto 0.6 X10*3/uL (0.1-1.2); Monocytes Percent Auto 5.6 % (2-11); Neutrophils Absolute Auto 4.9 x10*3/uL (2.0-8.3); Neutrophils Percent Auto 46.6 % (45-73); Platelet Count 306 X10*3/uL (160-400); Red Blood Count 4.52 X10*6/uL (4.20-5.50); White Blood Count 10.5 X10*3/uL (4.8-10.8)
[2024-08-05 12:03] LABS: Alanine Aminotransferase 15 U/L (0-31); Alkaline Phosphatase 99 U/L (39-117); Anion Gap 11 (12-20); Aspartate Amino Transferase 26 U/L (5-31); Bilirubin Total 0.3 mg/dL (0.0-1.0); Blood Urea Nitrogen 13 mg/dL (9-16); Calcium 9.4 mg/dL (8.4-10.2); Carbon Dioxide 26 mmol/L (22-29); Chloride 107 mmol/L (96-108); Creatinine Clr Calc Pharmacy 96.1; Estimated Glomerular Filt Rate > 60; Glucose Random 130 mg/dL (60-115); Potassium 4.2 mmol/L (3.3-5.1); Sodium 140 mmol/L (135-145)
[2024-08-05 13:29] VITALS: BP 143/94; PULSE 85; RESP 18; TEMP 36.7; O2SAT 96
[2024-08-05 13:30] VITALS: BP 143/94; PULSE 85; RESP 18; TEMP 36.7; O2SAT 96
--- OUTSIDE RECORDS SUMMARY | 2024-08-06 14:43 | XMS_ITS | Patient Health Record ---
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 Celiac yadira ry compression syndrome (5585326) Problem Median arcuate ligament syndrome (I77.4) Active confirmed [id number] PLAN OF TREATMENT Future Test Test Name Order Date UPPER GI ENDOSCOPY 08/19/2017 Insurance Providers Payer Name Payer Address Payer Phone Subscriber Number Group Number Insured Name Patient Relationship to Insured Coverage Start Date Coverage End Date MEDICAID OF [employer] [place] [address] [place] [phone] [id number] MEGHAN GUERRERO Self - patient is the insured MEDICAL (GENERAL) HISTORY Medical History History ICD Code Hypertension Uterine cancer--surgery as below Positive serology for helico bacter pylori 05/12/2017--reportedy treated with antibiotics GERD 02/07/2017 Denies UT,DM,CVA,renal disease Asthma Urinary bladder problems--has an implant [...]
== END 2024-08-05 13:30 | disposition home or self-care (01) ==
PROVIDERS: Physician Assistant; Emergency Provider Emergency Medicine
DX: F07.81 Postconcussional syndrome (principal); J01.11 Acute recurrent frontal sinusitis; R51.9 Headache, unspecified; Z79.899 Other long term (current) drug therapy
CPT/HCPCS: 36415; 70450; 80053; 85025; 99284

== ENCOUNTER → 2024-08-05 11:08 | Outpatient (BNV) | payer MEDICAID, SELFPAY | PROVIDERS: Emergency Provider Emergency Medicine; Visit Provider Radiology Diagnostic Radiology | DX: J01.01 Acute recurrent maxillary sinusitis (principal) | CPT/HCPCS: 70450 ==

== ENCOUNTER 2024-10-08 15:44 | Outpatient (REF) | payer MEDICAID, SELFPAY ==
--- NOTE | ~2024-10-08 | XR_ITS ---
EXAMINATION: XR KNEE, RIGHT CLINICAL INFORMATION: INJURY COMPARISON: None available. TECHNIQUE: Four views of the right knee. FINDINGS: No fracture or joint effusion. Alignment is anatomic. Joint spaces are maintained. No abnormal soft tissue calcification. XR/XR knee RT 4V IMPRESSION: Normal right knee. Electronically signed by: Christian Frank MD 10/08/2024 03:58 PM [facility]
--- OUTSIDE RECORDS SUMMARY | 2024-10-08 16:34 | XMS_ITS | Encounter Summary ---
Author Organization [email or web address] [facility] Address [address] [place] [address] Care Team Providers Care Major Account Manager Name Role Phone Angela Trimble Primary Care Provider [phone] Fifi Rodriguez NP Primary Care Provider [phone] Pearl Cm PharmD Unavailable [phone] Reason for Visit * Reason Onset Date Comments Appointment Request 10/07/2023 Encounter Details Date Type Department Care Team ([facility] Contact Info) Description 10/07/2023 Telephone [facility] [address] [place], [place] [phone] Angela Trimble FNP [address] [place], [place] [phone] Appointment Request Social History Tobacco Use Types Packs/Day Years Used Date Smoking Tobacco: Every Day Cigarettes Smokeless Tobacco: Never Housing Stability Answer Date Recorded What is your housing situation today? I have marshal hernandez 06/24/[address] you li ve. Do you have problems with any of the following? Inadequate heat 06/24/2023 Food Insecurity Answer Date Recorded Within the past 12 months, y ou worried that your food would run out before you got money to buy more: Sometimes True 2022 Within the past 12 months,th e food you bought just didn't last and you didn't have enough money to get more: Sometimes True 07/17/2023 Transportation Answer Date Recorded In the past 12 months, has l ack of transportation kept you from medical appts, meetings, work or from getting things needed for daily living? No 07/17/2023 Utilities Answer Date Recorded In the past 12 months, has t he electric, gas, oil or water company threatened to shut off services in your home? No 07/17/2023 Comments No Sex and Gender Information Value Date Recorded Sex Assigned at Female 07/15/2022 10:29 AM EDT Legal Sex Female 10:29 AM EDT Gender Identity Female 07/15/2022 10:29 AM EDT Sexual Orientation Straight 07/15/2022 10 :29 AM EDT documented as of this encounter Miscellaneous Notes * Telephone Encounter - Chanel Arshad - 10/07/2023 11:30 AM EST Tc from pt requesting PE appt with PCP, creative services writer attempted to schedule, no availability. Please contact pt in tamazight documented in this encounter Plan of Treatment Not on file documented as of this encounter Visit Diagnoses Not on filedocumented in this encounter Care Teams Major Account Manager Relationship Specialty Start Date End Date Angela Trimble FNP [address] [place] [address] PCP - General Family Medicine 08/12/22 10/12/23 Fifi Rodriguez NP [address] [place] [id number] PCP - General Family Medicine 10/13/23 Pearl Cm PharmD [address] [place] [id number] Pharmacist Internal Medicine 04/29/24 documented as of this encounter
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
--- OUTSIDE RECORDS SUMMARY | 2024-10-08 16:34 | XMS_ITS | Encounter Summary ---
Author Organization [employer] [facility] Address [address] 7t [place] [address] Care Team Providers Care Clinical Psychology Teacher Name Role Phone Fifi Rodriguez ELECTRICIAN SHIP Primary Care Provider [phone] Pearl Cm PharmD Unavailable [phone] Reason for Visit * Reason Onset Date Comments Nurse Triage 03/29/2024 Encounter Details Date Type Department Care Team ([facility] st Contact Info) Description 03/29/2024 Telephone [facility] MEDICINE [address] [place] [address] Fifi Rodriguez, ERIC [address] [place] [address] Nurse Triage Social History Tobacco Use Types Packs/Day Years Used Date Smoking Tobacco: Every Day Cigarettes Smokeless Tobacco: Never Alcohol Use Standard Drinks/Week Comments Yes 0 (1 standard drink = 0.6 oz pur e alcohol) pt stated shes abusing alcohol Alcohol Answer Date Recorded Frequency of Alcohol Consumption Not on file 03/15/2024 Average Number of Drinks Not on file 024 Frequency of Binge Drinking Not on file 09/2023 Score 1 03/15/2024 Housing Stability Answer Date Recorded What is your housing situation today? I have marshal hernandez 10/29/[address] you li ve. Do you have problems with any of the following? None of the above 10/29/2023 Food Insecurity Answer Date Recorded Within the [...] to shut off services in your home? Yes 10/29/2023 Comments No Sex and Gender Information Value Date Recorded Sex Assigned at Female 07/15/2022 10:29 AM EDT Legal Sex Female 10:29 AM EDT Gender Identity Female 07/15/2022 10:29 AM EDT Sexual Orientation Straight 07/15/2022 10 :29 AM EDT documented as of this encounter Miscellaneous Notes * Telephone Encounter - Elizabeth NguyenSHALOM alarcon - 03/29/2024 2:46 PM EDT Triage call returned to patient with Jackson Bellows Assembler [id number]. Patient reports that she is havingleft leg pain and pain in hip that is unbearable. Pain is severe and unable to sleep and requires assistance from Son to get to the bathroom. Patient reports that she has been to ED several times andthat nothing has been done. Reports that she was seen by PCP on 03/15/24 given muscle relaxers and patient report that it did nothing Patient wants pain relief and to find out what is causing pain. Is tearful on the phone. Disposition reviewed and patient in agreement with plan. Will seek evaluation at [facility] tomorrow as cant go today . Advised to call for 911 transport as needed. Team tasked to update PCP and follow with patient. Multiple (2) protocols were used on this call. Disposition for Call: Go to ED/UCC Now (or to Office with PCP Approval) Protocol Used: Leg Pain (Adult) Protocol-Based Disposition: Go to ED/UCC Now (or to Office with PCP Approval) Positive Triage Question: * Patient sounds very sick or weak to the triager * All higher-acuity triage questions were negative Care Advice Discussed: * Pain Medicines * Reasons To Call Back - Signs of infection occur (e.g., spreading redness, warmth, fever) - You become worse Protocol Used: Back Pain (Adult) Protocol-Based Disposition: Go to ED/UCC Now (or to Office with PCP Approval) Positive Triage Question: * Patient sounds very sick or weak to the triager * All higher-acuity triage questions were negative Care Advice Discussed: * Cold or Heat * Sleep * Activity * Pain Medicines * Reasons To Call Back - Fever occurs - Numbness or weakness occurs, or bowel/bladder problems - Pain persists over 2 weeks - Pain becomes worse - You become worse * Telephone Encounter - Jalil Cannon - 03/29/2024 2:06 PM EDT Symptom: Leg Pain - Not From Injury Outcome: Talk to a nurse or provider within 15 minutes Reason: Can't walk (unless normally can't walk) Croatian Speaker (Accepted Bellows Assembler) documented in this encounter Plan of Treatment Not on file documented as of this encounter Visit Diagnoses Not on filedocumented in this encounter Care Teams Clinical Psychology Teacher Relationship Specialty Start Date End Date Fifi Rodriguez NP [address] [place] [address] PCP - General Family Medicine 10/13/23 Pearl Cm PharmD [address] [place] [address] Pharmacist Internal Medicine 04/29/24 documented as of this encounter
--- OUTSIDE RECORDS SUMMARY | 2024-10-08 16:34 | XMS_ITS | Encounter Summary ---
Author Organization [facility] Address [address] [place] [address] 7t [place] [address] Care Team Providers Care Plate Driller Name Role Phone Fifi Rodriguez NP Primary Care Provider [phone] Pearl Cm PharmD Unavailable [phone] Reason for Visit * Reason Onset Date Comments Appointment Request 12/09/2023 Encounter Details Date Type Department Care Team ([facility] st Contact Info) Description 12/09/2023 Telephone [facility] MEDICINE [address] [place] [address] Fifi Rodriguez NP [address] [place], [place] [phone] Appointment Request Social History Tobacco Use Types Packs/Day Years Used Date Smoking Tobacco: Every Day Cigarettes Smokeless Tobacco: Never Alcohol Answer Date Recorded Frequency of Alcohol Consumption Not on file 03/15/2024 Average Number of Drinks Not on file 024 Frequency of Binge Drinking Not on file 09/2023 Score 1 03/15/2024 Depression Answer Date Recorded Patient Health Questionnaire-9 Score 13 07/26/2024 Patient Health Questionnaire-9 Score 13 07/26/2024 Last PHQ-9: Questionnaire Data Not on file 1 09/25/2023 Housing Stability Answer Date Recorded What is [...] off services in your home? Yes 10/29/2023 Depression Answer Date Recorded Patient Health Questionnaire-2 Score 4 07/26/2024 Comments No Sex and Gender Information Value Date Recorded Sex Assigned at Female 07/15/2022 10:29 AM EDT Legal Sex Female 10:29 AM EDT Gender Identity Female 07/15/2022 10:29 AM EDT Sexual Orientation Straight 07/15/2022 10 :29 AM EDT documented as of this encounter Miscellaneous Notes * Telephone Encounter - Henok Alcazar - 12/09/2023 10:25 AM EDT Tc from pt requesting to r/s PAP, appt has been cancelled due to family emergency. Please contact at [phone] documented in this encounter Plan of Treatment Not on file documented as of this encounter Goals Goal Patient Goal Type Associated Problems Recent Progress Patient-Stated? Author Quit using tobacco (cigarettes, smokeless, etc) Tobacco Use No Pearl Cm PharmD documented as of this encounter Visit Diagnoses Not on filedocumented in this encounter Care Teams Plate Driller Relationship Specialty Start Date End Date Fifi Rodriguez NP [address] [place] [address] PCP - General Family Medicine 10/13/23 Pearl Cm PharmD [address] [place] [address] Pharmacist Internal Medicine 04/29/24 documented as of this encounter
--- OUTSIDE RECORDS SUMMARY | 2024-10-08 16:35 | XMS_ITS | Clinical Summary ---
Author Organization [facility] Address [address] [place] [address] Care Team Providers Care Parts Advisor Name Role Phone Unavailable Primary Care Provider Unavailabl e Social History Tobacco Use Types Packs/Day Years Used Date Smoking Tobacco: Every Day Cigarettes 0.5 28.1 Started: 09/15/1996 Smokeless Tobacco: Never Alcohol Use Standard Drinks/Week Comments Not Currently 0 (1 standard drink = 0.6 oz pur e alcohol) Sex and Gender Information Value Date Recorded Sex Assigned at Not on file Gender Identity Not on file Sexual Orientation Not on file Obstetrics History Plan of Treatment Health Maintenance Due Date Last Done Comments Breast Cancer Screening 1975 Pneumococcal Vaccine: Pediat rics (0 to 5 Years) and At-Risk Patients (6 to 64 Years) (1 of 2 - PCV) 1982 DTaP,Tdap,and Td Vaccines (1 - Tdap) 11/22/1995 Hepatitis B Vaccines (1 of 3 - 19+ 3-dose series) 11/22/1995 Cervical Cancer Screening: P ap Smear 1997 Colorectal Cancer Screening: Colonoscopy 08/18/2022 Depression Screening 08/18/2022 HIV Screening 08/18/2022 Hepatitis C Screening 08/18/2022 Social Influencers of Health Screening 08/18/2022 COVID-19 Vaccine ( - 2023-2 5 season) 2024 Influenza Vaccine (#1) 2024 HIB Vaccines Aged Out No longer eligi ble based on patient's age to complete this topic HPV Vaccines Aged Out No longer eligi ble based on patient's age to complete this topic Hepatitis A Vaccines Aged Out No long er eligible based on patient's age to complete this topic IPV Vaccines Aged Out No longer eligi ble based on patient's age to complete this topic MMR Vaccines Aged Out No longer eligi ble based on patient's age to complete this topic Meningococcal ACWY Vaccine Aged Out N o longer eligible based on patient's age to complete this topic RSV Immunization Patients Un tristian 20 months Aged Out No longer eligible b ased on patient's age to complete this topic Varicella Vaccines Aged Out No longer eligible based on patient's age to complete this topic
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
--- OUTSIDE RECORDS SUMMARY | 2024-10-08 16:35 | XMS_ITS | Encounter Summary ---
Author Organization [employer] Address [address] [facility] [facility] [address] [facility] 7t [place] [address] Care Team Providers Care Animal Doctor Name Role Phone Fifi Rodriguez NP Primary Care Provider [phone] Pearl Cm PharmD Unavailable [phone] Encounter Details Date Type Department Care Team ([facility] st Contact Info) Description 10/08/2024 Orders Only [facility] MEDICINE [address] [place], [place] [phone] [facility] [address] [place], [place] [phone] Social History Tobacco Use Types Packs/Day Years [...] tobacco (cigarettes, smokeless, etc) Tobacco Use No Piers-Siegel , Pearl, PharmD documented as of this encounter Procedures Procedure Name Priority Date/Time Associated Diagnosis Comments XR KNEE 4+ VIEWS RIGHT Routine 10/08/2024 3:46 PM EST documented in this encounter Results * XR Knee 4+ Views Right (10/08/2024 3:46 PM EST) Anatomical Region Laterality Modality Lower Extremities, Knee Right [facility] 10/08/2024 3:46 PM EST Narrative 10/08/2024 4:01 PM EST ?[facility] ?[address] ?[place] [address] ?XRay Report ? Signed ? Patient: Tariq Colon,Naina ?MR#: [id number] ?? [id number] ? : 1975 ?Acct:[id number] ? Age/Sex: 48 / F ?ADM Date: 01/24/25 ? Loc: HO.HHCX ? Attending Dr: Alejandra Luque NOTCHING MACHINE OPERATOR ? Ordering Physician: Alejandra Luque NOTCHING MACHINE OPERATOR ?? Date of Service: 10/08/24 ?? Procedure(s): XR knee RT 4V ?? Accession Number(s): [id number] ? cc: Alejandra Luque NOTCHING MACHINE OPERATOR ? EXAMINATION: ?? XR KNEE, RIGHT ? CLINICAL INFORMATION: ?? INJURY ? COMPARISON: ?? None available. ? TECHNIQUE: ?? Four views of the right knee. ? FINDINGS: ?? No fracture or joint effusion. Alignment is anatomic. Joint spaces are ?? maintained. No abnormal soft tissue calcification. ? XR/XR knee RT 4V ?? IMPRESSION: ?? Normal right knee. ? Electronically signed by: ??Christian Frank MD ??10/08/2024 03:58 PM EST RP ? Dictated By: ?Christian Frank MD ? Signed By: ?<Electronically signed by Christian Frank MD in OV> ?10/08/24 1558 ? DD/ 1546 ? TD/TT: 10/08/24 1546 ? Soil Engineer: ? Procedure Note Gemma Evans - 10/08/[address] [address] XRay Report Signed Patient: Naina WayneMR#: [id number] : 1975Acct:[id number] Age/Sex: 48 / FADM Date: 10/08/24 Loc: HO.HHCX Attending Dr: Alejandra CHONG Ordering Physician: Alejandra Luque Date of Service: 10/08/24 Procedure(s): XR knee RT 4V Accession Number(s): [id number] cc: Alejandra Luque EXAMINATION: XR KNEE, RIGHT CLINICAL INFORMATION: INJURY COMPARISON: None available. TECHNIQUE: Four views of the right knee. FINDINGS: No fracture or joint effusion. Alignment is anatomic. Joint spaces are maintained. No abnormal soft tissue calcification. XR/XR knee RT 4V IMPRESSION: Normal right knee. Electronically signed by: Christian Frank MD 10/08/2024 03:58 PM [facility] Dictated By: Christian Frank MD Signed By: <Electronically signed by Christian Frank MD in OV> 10/08/24 1558 DD/ 1546 TD/TT: 10/08/24 1546 Soil Engineer: [facility] NOTCHING MACHINE OPERATOR IMG XR PROCEDURES Final Resul t documented in this encounter Visit Diagnoses Not on filedocumented in this encounter Additional Health Concerns Assessment Noted Time PHQ-9 Depression Total Score: 13 024 10:25 AM EST documented as of this encounter Care Teams Animal Doctor Relationship Specialty Start Date End Date Fifi Rodriguez NP [address] [place] [address] PCP - General Family Medicine 10/13/23 Pearl Cm, Lauren [address] [place] [address] Pharmacist Internal Medicine 04/29/24 documented as of this encounter
--- OUTSIDE RECORDS SUMMARY | 2024-10-08 16:35 | XMS_ITS | Encounter Summary ---
Author Organization [employer] Address [address] [place] [address] Care Team Providers Care Blindstitch Lapel Padder Name Role Phone Fifi Rodriguez NP Primary Care Provider [phone] Pearl Cm PharmD Unavailable [phone] Reason for Visit * Reason Comments Knee Pain Encounter Details Date Type Department Care Team (Late st Contact Info) Description 10/08/2024 2:40 PM EST Office Visit [facility] [address] [place], [place] [phone] Right knee injury, initial encounter (Primary Dx) Social History Tobacco Use Types Packs/Day Years [...] AM EDT documented as of this encounter Last Filed Vital Signs Vital Sign Reading Time Taken Comments Blood Pressure 140/94 10/08/2024 2:52 PM EST Pulse 99 10/08/2024 2:52 PM EST Temperature 36.8 ??C (98.3 ??F) 10/08/2024 2:52 PM ES T Respiratory Rate 18 10/08/2024 2:52 PM EST Oxygen Saturation 97% 10/08/2024 2:52 PM EST Inhaled Oxygen Concentration - - Weight 75.8 kg (167 lb) 10/08/2024 2:52 PM EST Height - - Body Mass Index 31.55 08/06/2024 9:44 AM EST documented in this encounter Plan of Treatment Scheduled Orders Name Type Priority Associated Diagnoses Orde r Schedule XR Knee 3 Views Right Imaging STAT Right knee injury, initial encounter Expected: 10/08/2024, Expires: 10/08/2025 documented as of this encounter Goals Goal Patient Goal Type Associated Problems Recent Progress Patient-Stated? Author Quit using tobacco (cigarettes, smokeless, etc) Tobacco Use No Pearl Cm, PharmD documented as of this encounter Visit Diagnoses Diagnosis Right knee injury, initial encounter- Primary documented in this encounter Additional Health Concerns Assessment Noted Time PHQ-9 Depression Total Score: 13 024 10:25 AM EST documented as of this encounter Care Teams Blindstitch Lapel Padder Relationship Specialty Start Date End Date Fifi Rodriguez NP [address] [place] [address] PCP - General Family Medicine 10/13/23 Pearl Cm, Lauren [address] [place] [address] Pharmacist Internal Medicine 04/29/24 documented as of this encounter
--- OUTSIDE RECORDS SUMMARY | 2024-10-08 16:35 | XMS_ITS | Clinical Summary ---
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 9.4 8.4 - 10.2 mg/dL [facility] Bilirubin, Total 0.3 0.0 - 1.0 mg/dL [facility] Aspartate Amino Transferase 26 5 - 31 U/L [facility] Alanine Aminotransferase 15 0 - 31 U/L [facility] Total Protein 7.0 6.5 - 8.0 g/dL [facility] Albumin Level 4.0 3.5 - 5.0 g/dL [facility] Alkaline Phosphatase 99 39 - 117 U/L [facility] 08/05/2024 11:4 4 AM EST 08/05/2024 11:47 AM EST us Generic External Data Provider LAB BLOOD ORDERAB LES Final Result Performing Organization Address [facility]/ZIP Co de Phone Number [facility] [address] [place] [phone] * (ABNORMAL) Pap with NG,CT,Trich (01/05/2024 11:10 AM EDT) Trichomonas (NAAT) DETECTED(A) NOT DETECTED [facility] Comment:The analytical perfo rmance characteristics of thisassay have been determined by [employer]. Themodifications have not been cleared or approved bythe FDA. This assay has been validated pursuant to theCLIA regulations and is used for clinical purposes.For additional information, please refer tohttp://education.Wappwolf/faq/Trichomonastma(This link is being provided for information/educational purposes only.)THIS TEST WAS PERFORMED AT:[facility] [place] [phone] COBIAN MD CTNG Ref Lab NOT DETECTED NOT DETECTED [facility] NG Ref Lab NOT DETECTED NOT DETECTED [facility] Pap Vial Vaginal structure / Unknown 01/05/2024 11:10 AM EDT 01/06/2024 9:54 AM EDT Narrative [facility] - 01/09/2024 2:54 PM EDT Was previous PAP abnormal? NoClinical Information: HysterectomyCollection Date: [id number] by: RITIKA Little: Vagina us Fifi Rodriguez TRUCK REPAIR SERVICE ESTIMATOR LAB CYTOLOGY ORDERABLES Final Re sult Performing Organization Address City/[facility]/ZIP Co de Phone Number [facility] [address] [place] [phone] * HPV mRNA E6/E7 w/Reflex to HPV Genotypes 16, 18/45 (01/05/2024 11:10 AM EDT) HPV nRNA E6/E7 Not Detected Not Detected [facility] Comment:Methodology: Transcr iption-Mediated AmplificationThis assay detects E6/E7 viral messenger RNA (mRNA) from 14high-risk HPV types (16,18,31,33,35,39,45,51,52,56,58,59,66,68).Cervical sources are required for HPV testing.If a vaginal source from a patient who has had atotal hysterectomy with removal of cervix wassubmitted, please contact the testing laboratoryfor alternative testing options.For additional information, please refer tohttp://education.Wappwolf/faq/TUC298i1(This link if provided for information/educational purposes only.)THIS TEST WAS PERFORMED AT:[facility] [place] [id number] COBIAN MD HPV mRNA E6/E7 [facility] HPV 16 RNA [facility] HPV 18/45 RNA [facility] 01/05/2024 11:1 0 AM EDT 01/06/2024 7:30 AM EDT us Fifi Rodriguez NP LAB CYTOLOGY ORDERABLES Final Re sult [facility] [address] [place] [phone] * (ABNORMAL) LIPID PANEL, STANDARD (02/01/2022 8:43 AM EDT) Chol/HDLC Ratio 3.7 <5.0 (calc) [facility] Cholesterol, Total 219(H) <200 mg/dL [facility] HDL Cholesterol 59 > OR = 50 mg/dL [facility] LDL Cholesterol 132(H) mg/dL (calc) [facility] Comment: Reference range: <100 ?? Desirable range <100 mg/dL for primary prevention; ?? <70 mg/dL for patients with CHD or diabetic patients ?? with > or = 2 CHD risk factors. ?? LDL-C is now calculated using the Lenny ?? calculation, which is a validated novel method providing ?? better accuracy than the Friedewald equation in the ?? estimation of LDL-C. ?? Keaton BUTLER et al. SRIDEVI. 2013;310(19): 3033-0187 ?? (http://education.Gift Card Impressions.deltaDNA/faq/XGF970) Non-HDL Cholesterol 160(H) <130 mg/dL (calc) [facility] Comment: For patients with diabetes plus 1 major ASCVD risk ?? factor, treating to a non-HDL-C goal of <100 mg/dL ?? (LDL-C of <70 mg/dL) is considered a therapeutic ?? option. Triglycerides 150(H) <150 mg/dL [facility] 02/01/2022 8:43 AM EDT Luis Alberto Reece MD LAB BLOOD ORDERABLES Final R esult [facility] [address] * Mammography Report 1 (12/14/2020 8:30 AM EDT) Anatomical Region Laterality Modality Breast Bilateral Mammography 12/14/2020 8:30 AM EDT Narrative 12/15/2020 8:41 AM EDT Refer to the Notes tab for result details [facility] Procedure: Mammography Report 1 Procedure Note Provider, MD Jana - 12/07/2022 Refer to the Notes tab for result details [facility] Procedure: Mammography Report 1 Luis Alberto Reece MD IMG BI PROCEDURES Final Resu lt from Last 3 Months or Most Recently Relevant to Health Maintenance Insurance [facility] C3 Care Teams Used Building Materials Yard Worker Relationship Specialty Start Date End Date Fifi Rodriguez NP [address] [place] [address] PCP - General Family Medicine 10/13/23 Pearl Cm, DomingoD [address] [place] [address] Pharmacist Internal Medicine 04/29/24
--- OUTSIDE RECORDS SUMMARY | 2024-10-08 16:35 | XMS_ITS | Encounter Summary ---
Author Organization [employer] Address [address] [facility] 7t [place] [address] Care Team Providers Care Patient Services Rep Name Role Phone Fifi Rodriguez PAIN MEDICINE PHYSICIAN Primary Care Provider [phone] Pearl Cm PharmD Unavailable [phone] Encounter Details Date Type Department Care Team ([facility] st Contact Info) Description 08/06/2024 Orders Only [facility] [address] [place], [place] [phone] Fifi Rodriguez NP [address] [place] [address] Cervicogenic headache (Primary Dx) Social History Tobacco Use Types [...] as of this encounter Visit Diagnoses Diagnosis Cervicogenic headache- Primary Headache documented in this encounter Additional Health Concerns Assessment Noted Time PHQ-9 Depression Total Score: 13 024 10:25 AM EST documented as of this encounter Care Teams Patient Services Rep Relationship Specialty Start Date End Date Fifi Rodriguez NP [address] [place] [address] PCP - General Family Medicine 10/13/23 Pearl Cm, PharmD [address] [place] [address] Pharmacist Internal Medicine 04/29/24 documented as of this encounter
--- OUTSIDE RECORDS SUMMARY | 2024-10-08 16:35 | XMS_ITS | Encounter Summary ---
Author Organization [facility] Address [address] [place] [address] 7t [place] [address] Care Team Providers Care Timber Skidder Name Role Phone Fifi Rodriguez NP Primary Care Provider [phone] Pearl Cm PharmD Unavailable [phone] Reason for Visit * Reason Onset Date Comments No Show 09/10/2024 Encounter Details Date Type Department Care Team ([facility] st Contact Info) Description 09/10/2024 Telephone [facility] [address] [place] [address] Fifi Rodriguez NP [address] [place] [address] No Show Social History Tobacco Use Types Packs/Day Years [...] the past 12 months, has t he [employer], gas, oil or water company threatened to [...] encounter Miscellaneous Notes * Telephone Encounter - Jennifer Ugalde - 09/10/2024 4:14 PM EST Patient no show to follow up appointment on 09/10/24. documented in this encounter Plan of Treatment Not on file documented as of this encounter Goals Goal Patient Goal Type Associated Problems Recent Progress Patient-Stated? Author Quit using tobacco (cigarettes, smokeless, etc) Tobacco Use No Pearl Cm, DomingoD documented as of this encounter Visit Diagnoses Not on filedocumented in this encounter Additional Health Concerns Assessment Noted Time PHQ-9 Depression Total Score: 13 024 10:25 AM EST documented as of this encounter Care Teams Timber Skidder Relationship Specialty Start Date End Date Fifi Rodriguez NP [address] [place] [address] PCP - General Family Medicine 10/13/23 Pearl Cm PharmD [address] [place] [address] Pharmacist Internal Medicine 04/29/24 documented as of this encounter
--- OUTSIDE RECORDS SUMMARY | 2024-10-08 16:35 | XMS_ITS | Patient Health Record ---
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 confirmed 2979162 PLAN OF TREATMENT Future Test Test Name Order Date UPPER GI ENDOSCOPY 08/19/2017 Insurance Providers Payer Name Payer Address Payer Phone Subscriber Number Group Number Insured Name Patient Relationship to Insured Coverage Start Date Coverage End Date MEDICA[employer] OF [employer] [address] [place] [phone] [id number] MEGHAN GUERRERO Self - patient is the insured MEDICAL (GENERAL) HISTORY Medical History History ICD Code Hypertension Uterine cancer--surgery as below Positive serology for helico bacter pylori 05/12/2017--reportedy treated with antibiotics GERD 02/07/2017 Denies TN,DM,CVA,renal disease Asthma Urinary bladder problems--has an implant [...]
== END 2024-10-08 15:45 | disposition home or self-care (01) ==
LOC: HO.HHCX 15:44
PROVIDERS: Visit Provider Registered Nurse
DX: S89.91XA Unspecified injury of right lower leg, initial encounter (principal)
CPT/HCPCS: 73564

== ENCOUNTER → 2024-10-08 15:46 | Outpatient (BNV) | payer MEDICAID, SELFPAY | PROVIDERS: Visit Provider Radiology Diagnostic Radiology | DX: S89.91XA Unspecified injury of right lower leg, initial encounter (principal) | CPT/HCPCS: 73564 ==

== ENCOUNTER 2024-10-15 12:57 | Outpatient (REF) | payer MEDICAID, SELFPAY ==
--- NOTE | ~2024-10-15 | CT_ITS ---
EXAMINATION: CT HEAD WITHOUT IV CONTRAST HISTORY: worst headache , persistent, change in pattern of headache. TECHNIQUE: Unenhanced helical CT of the head was performed per standard departmental protocol. Coronal and sagittal reformats of the head were also evaluated. One or more of the following techniques was used for dose reduction: Automated exposure control, adjustment of the mA and/or kV according to patient size, use of iterative reconstruction technique. DLP: 702 mGy-cm COMPARISON: Comparison is made with the prior examination dated 08/05/2024. FINDINGS: BRAIN: The brain parenchyma is unremarkable. There is normal green/white differentiation. The ventricular system is normal in size and configuration. There is no mass effect or midline shift. No intra- or extra-axial fluid collections are identified. SINUSES: There is moderate mucosal thickening in the right maxillary sinus. Fluid is also noted in the right maxillary sinus. The mastoid air cells and middle ear cavities are well pneumatized. ORBITS: The visualized orbits are unremarkable. BONES/SOFT TISSUES: The extracranial soft tissues are unremarkable. The calvarium is intact. No suspicious lytic or sclerotic lesions. CT/CT head/brain wo IV con IMPRESSION: 1. No acute intracranial abnormality. 2. Mucosal thickening and fluid in the right maxillary sinus. Electronically signed by: David Haider MD 10/15/2024 01:42 PM [facility]
--- OUTSIDE RECORDS SUMMARY | 2024-10-15 13:11 | XMS_ITS | Encounter Summary ---
Author Organization [facility] Address [address] [facility] 7t [place] [address] Care Team Providers Care House Cleaner Name Role Phone Fifi Rodirguez FOOTBALL PAD REPAIRER Primary Care Provider [phone] Pearl Cm PharmD Unavailable [phone] Reason for Visit * Reason Onset Date Comments Nurse Triage 03/29/2024 Encounter Details Date Type Department Care Team ([facility] st Contact Info) Description 03/29/2024 Telephone [facility] MEDICINE [address] [place] [address] Fifi Rodriguez, ERIC [address] [place] [address] Nurse Triage Social History Tobacco Use Types [...] EDT Triage call returned to patient with Harmony Six Horse Hitch Driver [id number]. Patient reports that she is havingleft leg [...] agreement with plan. Will seek evaluation at [facility] [place] [facility] [place] [facility] tomorrow as cant go today . [...] Back Pain (Adult) Protocol-Based Disposition: Go to ED/C Now (or to Office with PCP Approval) [...] Reason: Can't walk (unless normally can't walk) Slovenian Speaker (Accepted Six Horse Hitch Driver) documented in this encounter Plan of Treatment Upcoming Encounters Date Type Department Care Team (Late st Contact Info) Description 11/05/2024 2:30 PM EST Office Visit [facility] [address] [place] [address] Fifi Rodriguez NP [address] [place] [address] documented as of this encounter Visit Diagnoses Not on filedocumented in this encounter Care Teams House Cleaner Relationship Specialty Start Date End Date Fifi Rodriguez NP [address] [place] [address] PCP - General Family Medicine 10/13/23 Pearl Cm PharmD [address] [place] [address] Pharmacist Internal Medicine 04/29/24 documented as of this encounter
--- OUTSIDE RECORDS SUMMARY | 2024-10-15 13:11 | XMS_ITS | Encounter Summary ---
Author Organization [employer] [facility] Address [address] [place] [address] 7t [place] [address] Care Team Providers Care Women'S Studies Professor Name Role Phone Angela Trimble Primary Care Provider [phone] Fifi Rodriguez NP Primary Care Provider [phone] Pearl Cm PharmD Unavailable [phone] Reason for Visit * Reason Onset Date Comments call back 12/16/2022 Encounter Details Date Type Department Care Team ([facility] st Contact Info) Description 12/16/2022 Telephone [facility] MEDICINE [address] [place], [place] [phone] Angela Trimble FNP [address] [place], [place] [phone] call back Social History Tobacco Use Types [...] updated for PCP. Hospital summary: Admitted to [facility] from 11/02/22-11/06/22 when she presented as [...] follow up with trauma in 1-2 weeks. Pearl's Premium[employer] workers had difficulty reaching pt. Multiple calls [...] APPT with psychiatrist. Please contact pt at [phone] * Telephone Encounter - Pete Jose Alejandro - 12/16/2022 9:19 AM EDT Tc from pt requesting a call back from [place], pt stated commercial front load operator called pt and booked an physiatristappt to be via televisit and the appt was in person. Please contact pt at [phone] documented in this encounter Plan of Treatment Upcoming Encounters Date Type Department Care Team (Late st Contact Info) Description 11/05/2024 2:30 PM EST Office Visit [facility] MEDICINE [address] [place] [phone] Fifi Rodriguez, CHILDREN'S COUNSELOR [address] [place] [address] documented as of this encounter Visit Diagnoses Not on filedocumented in this encounter Care Teams Women'S Studies Professor Relationship Specialty Start Date End Date Angela Trimble FNP [address] [place] [address] PCP - General Family Medicine 08/12/22 10/12/23 Fifi Rodriguez, ERIC [address] [place] [address] PCP - General Family Medicine 10/13/23 Pearl Cm PharmD [address] [place] [address] Pharmacist Internal Medicine 04/29/24 documented as of this encounter
--- OUTSIDE RECORDS SUMMARY | 2024-10-15 13:11 | XMS_ITS | Encounter Summary ---
Author Organization [employer] Address [address] [facility] [address] 7t [place] [address] Care Team Providers Care Home Child Care Provider Name Role Phone Fifi Rodriguez NP Primary Care Provider [phone] Pearl Cm PharmD Unavailable [phone] Encounter Details Date Type Department Care Team ([facility] st Contact Info) Description 10/11/2024 Telephone [facility] [address] [place], [place] [phone] [facility] [address] [place], [place] [phone] Social History Tobacco Use Types Packs/Day Years [...] encounter Miscellaneous Notes * Telephone Encounter - Saritha Higginbotham RN - 10/11/2024 12:21 PM EST TC reattempted to pt's two numbers on file. No answer; unable to leave message. RN will send letterto address on file. Pt to F/U as needed. Tcx2 attempted to pt regarding message below. No answer. Voicemail box not set up, unable to leave message and secondary phone line cannot accept calls at this time. RN will forward to Walk In Nurses to make second attempt. ----- Message from [facility] sent at 10/11/2024 9:34 AM EST ----- Please advise patient that x-ray was negative for any acute fracture or effusion in her knee. However given the discomfort she was in and loss of range of motion I am still going to place an orthopedic referral for further evaluation. She can continue to use the soft brace and crutches as needed for comfort however it is okay for her to advance weightbearing as tolerated and she should begin daily gentle range of motion. Thank you! documented in this encounter Plan of Treatment Upcoming Encounters Date Type Department Care Team (Late st Contact Info) Description 11/05/2024 2:30 PM EST Office Visit [facility] [address] [place] [address] Fifi Rodriguez NP [address] [place] [address] documented as of this encounter Goals Goal Patient Goal Type Associated Problems Recent Progress Patient-Stated? Author Quit using tobacco (cigarettes, smokeless, etc) Tobacco Use No Pearl Cm, Lauren documented as of this encounter Visit Diagnoses Not on filedocumented in this encounter Additional Health Concerns Assessment Noted Time PHQ-9 Depression Total Score: 13 024 10:25 AM EST documented as of this encounter Care Teams Home Child Care Provider Relationship Specialty Start Date End Date Fifi Rodriguez NP [address] [place] [address] PCP - General Family Medicine 10/13/23 Pearl Cm, DomingoD [address] [place] [address] Pharmacist Internal Medicine 04/29/24 documented as of this encounter
--- OUTSIDE RECORDS SUMMARY | 2024-10-15 13:11 | XMS_ITS | Encounter Summary ---
Author Organization [facility] Address [address] [facility] 7t [place] [address] Care Team Providers Care Mess Cook Name Role Phone Angela Trimble Primary Care Provider [phone] Fifi Rodriguez NP Primary Care Provider [phone] Pearl Cm PharmD Unavailable [phone] Reason for Visit * Reason Onset Date Comments Appointment Request 10/07/2023 Encounter Details Date Type Department Care Team ([facility] Contact Info) Description 10/07/2023 Telephone [facility] MEDICINE [address] [place], [place] [phone] Angela Trimble FNP [address] [place], [place] [phone] Appointment Request Social History Tobacco Use Types [...] from pt requesting PE appt with PCP, radio news writer attempted to schedule, no availability. Please contact pt in khmer documented in this encounter Plan of Treatment Upcoming Encounters Date Type Department Care Team (Late st Contact Info) Description 11/05/2024 2:30 PM EST Office Visit [facility] MEDICINE [address] [place] [address] Fifi Rodriguez, ERIC [address] [place] [address] documented as of this encounter Visit Diagnoses Not on filedocumented in this encounter Care Teams Mess Cook Relationship Specialty Start Date End Date Angela Trimble FNP [address] [place] [address] PCP - General Family Medicine 08/12/22 10/12/23 Fifi Rodriguez, ERIC [address] [place] [address] PCP - General Family Medicine 10/13/23 Pearl Cm, Lauren [address] [place] [address] Pharmacist Internal Medicine 04/29/24 documented as of this encounter
--- OUTSIDE RECORDS SUMMARY | 2024-10-15 13:11 | XMS_ITS | Encounter Summary ---
Author Organization [employer] Address [address] [facility] 7t [place] [address] Care Team Providers Care Cuff Turner Machine Operator Name Role Phone Fifi Rodriguez NP Primary Care Provider [phone] Pearl Cm PharmD Unavailable [phone] Encounter Details Date Type Department Care Team ([facility] st Contact Info) Description 10/08/2024 Orders Only [facility] MEDICINE [address] [place], [place] [phone] [facility] [address] [place], [place] [phone] Social History Tobacco Use Types Packs/Day Years [...] as of this encounter Plan of Treatment Upcoming Encounters Date Type Department Care Team (Late st Contact Info) Description 11/05/2024 2:30 PM EST Office Visit [facility] MEDICINE [address] [place] [address] Fifi Rodriguez NP [address] [place] [address] documented as of this encounter Goals Goal Patient Goal Type Associated Problems Recent Progress Patient-Stated? Author Quit using tobacco (cigarettes, smokeless, etc) Tobacco Use No Pearl Cm, PharmD documented as of this encounter Procedures Procedure Name Priority Date/Time Associated Diagnosis Comments XR KNEE 4+ VIEWS RIGHT Routine 10/08/2024 3:46 PM EST documented in this encounter Results * XR Knee 4+ Views Right (10/08/2024 3:46 PM EST) Anatomical Region Laterality Modality Lower Extremities, Knee Right [facility] 10/08/2024 3:46 PM EST Narrative 10/08/2024 4:01 PM EST ?[facility] ?[address] ?[place] [address] ?XRay Report ? Signed ? Patient: Tariq Colon,Naina ?MR#: [id number] ?? [id number] ? : 1975 ?Acct:[id number] ? Age/Sex: 48 / F ?ADM Date: 10/08/24 ? Loc: HO.HHCX ? Attending Dr: Alejandra Luque SUPERVISOR COMPUTER OPERATIONS ? Ordering Physician: Alejandra Luque SUPERVISOR COMPUTER OPERATIONS ?? Date of Service: 10/08/24 ?? Procedure(s): XR knee RT 4V ?? Accession Number(s): [id number] ? cc: Alejandra Luque SUPERVISOR COMPUTER OPERATIONS ? EXAMINATION: ?? XR KNEE, RIGHT ? [...] DD/ 1546 ? TD/TT: 10/08/24 1546 ? Track Helper: ? Procedure Note Cristina, Image - 10/08/2024 [place] [address] XRay Report Signed Patient: Naina WayneMR#: [id number] : 1975Acct:[id number] Age/Sex: 48 / FADM Date: 10/08/24 Loc: HO.HHCX Attending Dr: Alejandra CHONG Ordering Physician: Alejandra Luque Date of Service: 10/08/24 Procedure(s): XR knee RT 4V Accession Number(s): [id number] cc: Alejandra Luque EXAMINATION: XR KNEE, RIGHT CLINICAL INFORMATION: INJURY COMPARISON: None available. TECHNIQUE: Four views of the right knee. FINDINGS: No fracture or joint effusion. Alignment is anatomic. Joint spaces are maintained. No abnormal soft tissue calcification. XR/XR knee RT 4V IMPRESSION: Normal right knee. Electronically signed by: Chritsian Frank MD 10/08/2024 03:58 PM EST RP Dictated By: Christian Frank MD Signed By: <Electronically signed by Christian Frank MD in OV> 10/08/24 1558 DD/ 1546 TD/TT: 10/08/24 1546 Track Helper: [facility] SUPERVISOR COMPUTER OPERATIONS IMG XR PROCEDURES Final Resul t documented in this encounter Visit Diagnoses Not on filedocumented in this encounter Additional Health Concerns Assessment Noted Time PHQ-9 Depression Total Score: 13 024 10:25 AM EST documented as of this encounter Care Teams Cuff Turner Machine Operator Relationship Specialty Start Date End Date Fifi Rodriguez NP [address] [place] [address] PCP - General Family Medicine 10/13/23 Pearl Cm PharmD [address] [place] [address] Pharmacist Internal Medicine 04/29/24 documented as of this encounter
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
--- OUTSIDE RECORDS SUMMARY | 2024-10-15 13:11 | XMS_ITS | Clinical Summary ---
Author Organization [facility] Address [address] [place] [address] Care Team Providers Care Box Truck Driver Name Role Phone Unavailable Primary Care Provider [...]
--- OUTSIDE RECORDS SUMMARY | 2024-10-15 13:11 | XMS_ITS | Encounter Summary ---
Author Organization [facility] Address [address] [place] [address] [address] [place] [address] Care Team Providers Care Mortgage Loan Underwriter Name Role Phone Fifi Rodriguez NP Primary Care Provider [phone] Pearl Cm PharmD Unavailable [phone] Reason for Visit * Reason Onset Date Comments Appointment Request 12/09/2023 Encounter Details Date Type Department Care Team ([facility] st Contact Info) Description 12/09/2023 Telephone [facility] [address] [place] [address] Fifi Rodriguez NP [address] [place], [place] [phone] Appointment Request Social History Tobacco Use Types [...] due to family emergency. Please contact at [phone] documented in this encounter Plan of Treatment Upcoming Encounters Date Type Department Care Team (Late st Contact Info) Description 11/05/2024 2:30 PM EST Office Visit [facility] [address] [place] [address] Fifi Rodriguez NP [address] [place] [address] documented as of this encounter Goals Goal Patient Goal Type Associated Problems Recent Progress Patient-Stated? Author Quit using tobacco (cigarettes, smokeless, etc) Tobacco Use No Pearl Cm, PharmD documented as of this encounter Visit Diagnoses Not on filedocumented in this encounter Care Teams Mortgage Loan Underwriter Relationship Specialty Start Date End Date Fifi Rodriguez NP [address] [place] [address] PCP - General Family Medicine 10/13/23 Pearl Cm, Lauren [address] [place] [phone] Pharmacist Internal Medicine 04/29/24 documented as of this encounter
--- OUTSIDE RECORDS SUMMARY | 2024-10-15 13:11 | XMS_ITS | Encounter Summary ---
Author Organization [employer] [facility] Address [address] [facility] [address] [place] [address] Care Team Providers Care Sports Broadcasting Internship Name Role Phone Fifi Rodriguez MANAGER PRINTING Primary Care Provider [phone] Pearl Cm PharmD Unavailable [phone] Reason for Visit * Reason Comments Med Refill Encounter Details Date Type Department Care Team (Late st Contact Info) Description 09/15/2024 Refill [facility] [address] [place] [address] Fifi Rodriguez NP [address] [place] [address] Concussion without loss of consciousness, subsequent encounter [...] Description 11/05/2024 2:30 PM EST Office Visit [facility] [address] [place] [address] Fifi Rodriguez NP [address] [place] [address] documented as of this encounter Goals Goal [...] documented as of this encounter Care Teams Sports Broadcasting Internship Relationship Specialty Start Date End Date Fifi Rodriguez NP [address] [place] [id number] PCP - General Family Medicine 10/13/23 Pearl Cm, DomingoD [address] [place] [address] Pharmacist Internal Medicine 04/29/24 documented as of this encounter
--- OUTSIDE RECORDS SUMMARY | 2024-10-15 13:11 | XMS_ITS | Clinical Summary ---
Author Organization [employer] Address [address] [place] [address] 7[address] [place] [address] Care Team Providers Care Oil Heater Operator Name Role Phone Fifi Rodriguez NP Primary Care Provider [phone] Pearl Cm PharmD Unavailable [phone] Allergies Active Allergy Reactions Criticality Noted Date [...] Active nicotine polacrilex (Nicorelief) 2 MG gumIndications:Toba account adjuster dependence Chew 1 each (2 mg) if [...] no skin breaks nor induration -referred to SIFTER OPERATOR to f up Mixed hyperlipidemia 01/21/2023 Assessment [...] Encounters Date Type Department Care Team Description 10/11/[address] [facility] WALK-IN CENTER [address] [place] [address] [facility] 10/08/2024 2:40 PM EST Office Visit [facility] WALK-[facility] [place] [address] [place] [address] [facility] Right knee injury, initial encounter (Primary Dx) 10/08/2024 Orders Only [facility] MEDICINE [address] [place] [address] [facility] 09/15/[address] [address] Fifi Rodriguez NP Concussion without loss of consciousness, subsequent encounter 09/10/[address] [address] Fifi Rodriguez NP No Show 08/29/[address] [address] Lucy Reyes ANP Essential hypertension; Coronary atherosclerosis due to lipid rich plaque 08/24/[address] [address] Kenya Monte [place] Chart Prep 08/23/[address] [facility] MEDICINE [address] [place] [address] Fifi Rodriguez NP Seasonal allergic rhinitis due to pollen 08/16/[address] [address] Shirley Echeverria, JEN 08/06/2024 10:30 AM EST Clinical Support [address] [address] Shirley Echeverria, RN Essential hypertension; Cervicogenic headache 08/06/2024 Orders Only [address] [address] Fifi Rodriguez NP Cervicogenic headache (Primary Dx) 08/06/2024 Travel 08/05/[address] [address] Shirley Echeverria RN 08/05/2024 Orders Only GENERIC EXTERNAL DATA DEPARTMENT Provider, Generic External Data 08/04/2024 11:15 AM EST Office Visit [address] [address] Fifi Rodriguez NP Chronic intractable headache, unspecified headache type (Primary Dx); Worst headache of life; Hair loss; Primary hypertension; Essential hypertension 08/04/2024 Travel 08/03/[address] [address] Ritika Aiken [place] CHART PREP 07/26/2024 10:30 AM EST Office Visit [address] [address] Fifi Rodriguez NP Cervicogenic headache (Primary Dx); Nausea; Essential hypertension 07/23/[address] [address] Ritika Aiken [place] CHART PREP from Last 3 Months Immunizations Name Administration [...] 08/06/2024 9:44 AM EST Plan of Treatment Upcoming Encounters Date Type Department Care Team (Late st Contact Info) Description 11/05/2024 2:30 PM EST Office Visit [facility] MEDICINE [address] [place] [address] Fifi Rodriguez NP [address] [place] [address] Health Maintenance Due Date Last Done Comments [...] 5 Years) and At-Risk Patients (6 to 49) Years) (2 of 2 - PCV) 10/26/2019 10/26/2018 Mammogram 12/14/2022 12/14/2020, 03/16/2018 COVID-19 Vaccine (1 - 2023-2 5 season) 2024 Influenza Vaccine (#1) 2024 8, 04/30/2018, 08/21/2017 SDOH Screening 10/29/2024 10/29/2023 Depression Monitoring (PHQ-9) 01/23/2025, 07/26/2024 Alcohol/Substance Use Screening 03/15/2025 03/15/2024 Depression Screening 07/26/2025 07/26/2024, 07/26/2024 Tobacco Screening 10/11/2025 10/11/2024 Zoster Vaccines (1 of 2) 2026 Pap [...] etc) Tobacco Use No Pearl Cm, Lauren Procedures Procedure Name Priority Date/Time Associated Diagnosis Comments XR KNEE 4+ VIEWS RIGHT Routine 5 3:[address] HEAD WO CONTRAST [...] Laterality Modality Lower Extremities, Knee Right Radiogra phic Imaging 10/08/2024 3:46 PM EST Narrative 10/08/2024 4:01 PM EST ?[facility] ?[address] ?[place] [address] ?XRay Report ? Signed ? Patient: Tariq Colon,Naina ?MR#: [id number] ?? [id number] ? : 1975 ?Acct:[id number] ? Age/Sex: 48 / F ?ADM Date: 10/08/24 ? Loc: HO.HHCX ? Attending Dr: Alejandra Luque [employer] ? Ordering Physician: Alejandra Luque [employer] ?? Date of Service: 10/08/24 ?? Procedure(s): XR knee RT 4V ?? Accession Number(s): [id number] ? cc: Alejandra Luque [employer] ? EXAMINATION: ?? XR KNEE, RIGHT ? [...] DD/ 1546 ? TD/TT: 10/08/24 1546 ? Second Operator: ? Procedure Note Cristina, Gemma - 10/08/[address] [address] XRay Report Signed Patient: Naina WayneMR#: [id number] : 1975Acct:[id number] Age/Sex: 48 / FADM Date: 10/08/24 Loc: HO.HHCX Attending Dr: Alejandra Luque [employer] Ordering Physician: Alejandra Luque Date of Service: 10/08/24 Procedure(s): XR knee RT 4V Accession Number(s): [id number] cc: WewokaAlejandra [facility] EXAMINATION: XR KNEE, RIGHT CLINICAL INFORMATION: INJURY COMPARISON: None available. TECHNIQUE: Four views of the right knee. FINDINGS: No fracture or joint effusion. Alignment is anatomic. Joint spaces are maintained. No abnormal soft tissue calcification. XR/XR knee RT 4V IMPRESSION: Normal right knee. Electronically signed by: Christian Frank MD 10/08/2024 03:58 PM EST Dictated By: Christian Frank MD Signed By: <Electronically signed by Christian Frank MD in OV> 10/08/24 1558 DD/ 1546 TD/TT: 10/08/24 1546 Second Operator: [facility] [employer] IMG XR PROCEDURES Final Resul t * CT Head w/o Contrast (08/05/2024 12:03 PM EST) Anatomical Region Laterality Modality Head, Neck Computed Tomogra phy 08/05/2024 12:0 3 PM EST Narrative 08/05/2024 1:01 PM EST ? [facility] ?[address] ?[place] [address] ? CT Scan Report ? Signed ? Patient: Tariq Colon,Naina ?MR#: [id number] ?? [id number] ? : 1975 ?Acct:[id number] ? Age/Sex: 48 / F ?ADM Date: 11/21/24 ? Loc: HO.ED ? Attending Dr: ? Ordering Physician: Troy Amaya ?? Date of Service: 11/21/24 ?? Procedure(s): CT head/brain wo IV con ?? Accession Number(s): [id number] ? cc: Troy Amaya; [facility] ? EXAMINATION: ?? CT HEAD WITHOUT CONTRAST [...] Soria MD ??08/05/2024 12:57 PM ?? EST ? Dictated By: ?Amauri Barry MD ? Signed By: ?<Electronically signed by Amauri Singletary MD in OV> ? 08/05/24 1257 ? DD/ 1203 ? TD/TT: 08/05/24 1203 ? Second Operator: ? Procedure Note Cristina, Gemma - 08/05/[address] [address] [address] Scan Report Signed Patient: Naina WayneMR#: [id number] : 1975Acct:[id number] Age/Sex: 48 / FADM Date: 08/05/24 Loc: HO.ED Attending Dr: Ordering Physician: Troy Amaya Date of Service: 08/05/24 Procedure(s): CT head/brain wo IV con Accession Number(s): [id number] cc: Troy Amaya; [facility] EXAMINATION: CT HEAD WITHOUT CONTRAST CLINICAL INFORMATION: [...] Amauri Soria MD 08/05/2024 12:57 PM EST RP Dictated By: Amauri Barry MD Signed By: <Electronically signed by Amauri Singletary MDin OV> 08/05/24 1257 DD/ 1203 TD/TT: 08/05/24 1203 Second Operator: [facility] External Provider IMG CT PROCEDURES Final Result * (ABNORMAL) CBC auto differential (08/05/2024 11:44 AM EST) White Blood Count 10.5 4.8 - 10.8 X10*3/uL [facility] Red Blood Count 4.52 4.20 - 5.50 X10*6/uL [facility] Hemoglobin 13.6 12.0 - 16.0 g/dl [facility] Hematocrit 39.4 37.0 - 47.0 % [facility] Mean Corpuscular Volume 87.2 80.0 - 98.0 fL [facility] Mean Corpuscular Hemoglobin 30.1 27.0 - 33.0 pg [facility] Mean Corpuscular HGB Conc 34.5 31.0 - 35.0 g/dl [facility] Red Cell Distribution Width 12.0 11.0 - 16.0 % [facility] Platelet Count 306 160 - 400 X10*3/uL [facility] Mean Platelet Volume 8.8(L) 9.4 - 12.3 fL [facility] Neutrophils Percent Auto 46.6 45 - 73 % [facility] Imm Gran Pct Auto 0.4 0.0 - 0.4 % [facility] Lymphocytes Percent Auto 41.8(H) 20 - 40 % [facility] Monocytes Percent Auto 5.6 2 - 11 % [facility] Eosinophils Percent Auto 4.7(H) 0 - 4 % [facility] Basophils Percent Auto 0.9 0 - 2 % [facility] NRBC Pct Auto 0.0 0.0 - 0.2 /100WBC [facility] Neutrophils Absolute Auto 4.9 2.0 - 8.3 x10*3/uL [facility] Imm Gran Abs Auto 0.04(H) 0.00 - 0.03 X10*3/uL [facility] Lymphocytes Absolute Auto 4.4 1.2 - 4.9 X10*3/uL [facility] Monocytes Absolute Auto 0.6 0.1 - 1.2 X10*3/uL [facility] Eosinophils Absolute Auto 0.5(H) 0.0 - 0.4 X10*3/uL [facility] Basophils Absolute Auto 0.1 0.0 - 0.2 X10*3/uL [facility] NRBC Abs Auto 0.000 0.0 - 0.012 X10*3/uL [facility] 08/05/2024 11:4 4 AM EST 08/05/2024 11:47 AM EST us Generic External Data Provider LAB BLOOD ORDERAB LES Final Result [facility] [address] [place] [address] [phone] * (ABNORMAL) Comprehensive Metabolic Panel (08/05/2024 11:44 AM EST) Sodium 140 135 - 145 mmol/L [facility] Potassium 4.2 3.3 - 5.1 mmol/L [facility] Chloride 107 96 - 108 mmol/L [facility] Carbon Dioxide 26 22 - 29 mmol/L [facility] Anion Gap 11(L) 12 - 20 [facility] Urea Nitrogen (BUN) 13 9 - 16 mg/dL [facility] Creatinine, Serum 0.73 0.5 - 1.4 mg/dL [facility] Creatinine Clr Calc Pharmacy 96.1 [facility] Comment:Provided height and weight: 165.1 cm,74.3 kg.eGFR (calculated from the MDRD study equation) and eCrCl(calculated from the Cockcroft-Gault equation) are based ondifferent parameters and may not yield comparable results.If eCrCl result is absurd, please check patient'sheight/weight. Estimated Glomerular Filt Rate >60 [facility] Comment:Chronic Kidney Disea se: Estimated GFR < 60 mL/min/1.49w7Bnewad Kidney Disease: Estimated GFR < 15 mL/min/1.73m2 Glucose 130(H) 60 - 115 mg/dL [facility] Calcium 9.4 8.4 - 10.2 mg/dL [facility] Bilirubin, Total 0.3 0.0 - 1.0 mg/dL [facility] Aspartate Amino Transferase 26 5 - 31 U/L [facility] Alanine Aminotransferase 15 0 - 31 U/L [facility] Total Protein 7.0 6.5 - 8.0 g/dL [facility] Albumin Level 4.0 3.5 - 5.0 g/dL [facility] Alkaline Phosphatase 99 39 - 117 U/L [facility] 08/05/2024 11:4 4 AM EST 08/05/2024 11:47 AM EST us Generic External Data Provider LAB BLOOD ORDERAB LES Final Result Performing Organization Address [facility]/ZIP Co de Phone Number [facility] [address] [place] [address] [phone] * (ABNORMAL) Pap with NG,CT,Trich (01/05/2024 11:10 AM EDT) Trichomonas (NAAT) DETECTED(A) NOT DETECTED [facility] Comment:The analytical perfo rmance characteristics of thisassay have been determined by [employer]. Themodifications have not been cleared or approved bythe FDA. This assay has been validated pursuant to theCLIA regulations and is used for clinical purposes.For additional information, please refer tohttp://education.Wayna/faq/Trichomonastma(This link is being provided for information/educational purposes only.)THIS TEST WAS PERFORMED AT:[employer] [place] [phone] COBIAN MD CTNG Ref Lab NOT DETECTED NOT DETECTED [facility] NG Ref Lab NOT DETECTED NOT DETECTED [facility] Pap Vial Vaginal structure / Unknown 01/05/2024 11:10 AM EDT 01/06/2024 9:54 AM EDT Narrative [facility] - 01/09/2024 2:54 PM EDT Was previous PAP abnormal? NoClinical Information: HysterectomyCollection Date: [id number] by: RITIKA Little: Vagina us Fifi Rodriguez BULK PIGMENT REDUCER LAB CYTOLOGY ORDERABLES Final Re sult [facility] [address] [place] [address] [phone] * HPV mRNA E6/E7 w/Reflex to HPV Genotypes 16, 18/45 (01/05/2024 11:10 AM EDT) [facility] HPV nRNA E6/E7 Not Detected Not Detected [facility] Comment:Methodology: Transcr iption-Mediated AmplificationThis assay detects E6/E7 viral messenger RNA (mRNA) from 14high-risk HPV types (16,18,31,33,35,39,45,51,52,56,58,59,66,68).Cervical sources are required for HPV testing.If a vaginal source from a patient who has had atotal hysterectomy with removal of cervix wassubmitted, please contact the testing laboratoryfor alternative testing options.For additional information, please refer tohttp://education.Wayna/faq/LOF073a4(This link if provided for information/educational purposes only.)THIS TEST WAS PERFORMED AT:[employer] [place] [phone] COBIAN MD HPV mRNA E6/E7 [facility] HPV 16 RNA [facility] HPV 18/45 RNA [facility] 01/05/2024 11:1 0 AM EDT 01/06/2024 7:30 AM EDT Fifi Rodriguez NP LAB CYTOLOGY ORDERABLES Final Re sult [facility] [address] [place] [address] [phone] * (ABNORMAL) LIPID PANEL, STANDARD (02/01/2022 8:43 AM EDT) Pathologist [facility] Chol/HDLC Ratio 3.7 <5.0 (calc) [facility] Cholesterol, Total 219(H) <200 mg/dL [...] ?? Keaton BUTLER et al. SRIDEVI. 2013;310(19): 7232-6017 ?? (http://Coinbase.iSkoot/faq/EHC770) Non-HDL Cholesterol 160(H) <130 mg/dL (calc) [facility] Comment: For patients with diabetes plus 1 major ASCVD risk ?? factor, treating to a non-HDL-C goal of <100 mg/dL ?? (LDL-C of <70 mg/dL) is considered a therapeutic ?? option. Triglycerides 150(H) <150 mg/dL [facility] 02/01/2022 8:43 AM EDT Luis Alberto Reece MD LAB BLOOD ORDERABLES Final R esult [facility] [address] * Mammography Report 1 (12/14/2020 8:30 [...] Most Recently Relevant to Health Maintenance Insurance [facility] C3 Care Teams Oil Heater Operator Relationship Specialty Start Date End Date Fifi Rodriguez NP [address] [place], [place] PCP - General Family Medicine 10/13/23 Pearl Cm PharmD [address] [place], [place] Pharmacist Internal Medicine 04/29/24
--- OUTSIDE RECORDS SUMMARY | 2024-10-15 13:13 | XMS_ITS | Encounter Summary ---
Author Organization [employer] Address [address] [place] [address] Care Team Providers Care President And Chief Operating Officer Name Role Phone Fifi Rodriguez MACHINE ADJUSTER HELPER Primary Care Provider [phone] Pearl Cm PharmD Unavailable [phone] Encounter Details Date Type Department Care Team ([facility] st Contact Info) Description 08/06/2024 Orders Only [facility] MEDICINE [address] [place], [place] [phone] Fifi Rodriguez NP [address] [place] [address] Cervicogenic headache (Primary Dx) Social History Tobacco [...] Description 11/05/2024 2:30 PM EST Office Visit [facility] MEDIC[facility] [address] [place] [address] Fifi Rodriguez NP [address] [place] [address] documented as of this encounter Goals Goal [...] documented as of this encounter Care Teams President And Chief Operating Officer Relationship Specialty Start Date End Date Fifi Rodriguez NP [address] [place] [address] PCP - General Family Medicine 10/13/23 Pearl Cm, DomingoD [address] [place] [phone] Pharmacist Internal Medicine 04/29/24 documented as of this encounter
== END 2024-10-15 12:58 | disposition home or self-care (01) ==
LOC: HO.CT 12:57
PROVIDERS: Visit Provider Nurse Practitioner Family
DX: R51.9 Headache, unspecified (principal); G89.29 Other chronic pain
CPT/HCPCS: 70450

== ENCOUNTER → 2024-10-15 12:59 | Outpatient (BNV) | payer MEDICAID, SELFPAY | PROVIDERS: Visit Provider Radiology Diagnostic Radiology | DX: R51.9 Headache, unspecified (principal) | CPT/HCPCS: 70450 ==

== ENCOUNTER 2024-11-26 08:16 | Outpatient (REF) | payer MEDICAID, SELFPAY | END 2024-11-26 08:17 | disposition home or self-care (01) | LOC: HO.HOSX 08:16 | PROVIDERS: Visit Provider Physician Assistant | DX: Z13.89 Encounter for screening for other disorder (principal) ==

== ENCOUNTER 2024-12-28 11:49 | Outpatient (REF) | payer MEDICAID, SELFPAY ==
--- OUTSIDE RECORDS SUMMARY | 2024-12-29 14:18 | XMS_ITS | Patient Health Record ---
Author Organization [facility] Address [address] [place] [address] Care Team Providers Care Education Professor Name Role Phone Luis Alberto Reece Primary Care Provider David Chavez [phone] Reason For Referral No Information Medications Medication SIG (Take, Route, Frequency, Duration) Notes [...] 12 hrs for 10 day(s) 09/17/2017 Active Social History Tobacco Use: Social History Observation Description Date Details (start date - stop date) Former Smoker NA - NA Tobacco Use/Smoking Question Answer Notes Patient is a former smoker How long has it been since you last smoked? 3-6 months Alcohol Screen Question Answer Notes Did you have a drink containing alcohol in the p ast year? 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 Problem 8416011 Median arcuate ligament syndrome (I77.4) Active confirmed Plan Of Treatment Future Test Test Name Order Date UPPER GI ENDOSCOPY 08/19/2017 Insurance Providers Payer Name Payer Address Payer Phone Subscriber Number Group Number Insured Name Patient Relationship to Insured Coverage Start Date Coverage End Date MEDICAID OF [employer] [address] [place] [phone] [id number] MEGHAN GUERRERO Self - patient is the insured Medical (General) History Medical History History ICD Code Hypertension Uterine cancer--surgery as below Positive serology for helico bacter pylori 05/12/2017--reportedy treated with antibiotics GERD 02/07/2017 Denies VA,DM,CVA,renal disease Asthma Urinary bladder problems--has an implant [...]
--- OUTSIDE RECORDS SUMMARY | 2024-12-29 14:18 | XMS_ITS | Clinical Summary ---
Author Organization [facility] Address [address] [place] [address] Care Team Providers Care Marine Water Tender Name Role Phone Unavailable Primary Care Provider Unavailabl e Social History Tobacco Use Types Packs/Day Years Used Date Smoking Tobacco: Every Day Cigarettes 0.5 28.3 Started: 09/15/1996 Smokeless Tobacco: Never Alcohol Use Standard Drinks/Week Comments Not Currently 0 (1 standard drink = 0.6 oz pur e alcohol) Comments Unknown Sex and Gender Information Value Date Recorded Sex Assigned at Not on file Legal Sex Female 8:28 AM EST Gender Identity Not on file Sexual Orientation Not on file Obstetrics History Plan of Treatment Health Maintenance Due Date Last Done Comments Breast Cancer Screening 1975 DTaP,Tdap,and Td Vaccines (1 - Tdap) 11/22/1995 Hepatitis B Vaccines (1 of 3 - 19+ 3-dose series) 11/22/1995 Pneumococcal Vaccine: Pediat rics (0 to 5 Years) and At-Risk Patients (6 to 64 Years) (1 of 2 - PCV) 11/22/1995 Cervical Cancer Screening: P ap Smear 1997 Colorectal Cancer Screening: Colonoscopy 08/18/2022 Depression Screening 08/18/2022 HIV Screening 08/18/2022 Hepatitis C Screening 08/18/2022 Social Influencers of Health Screening 08/18/2022 COVID-19 Vaccine (2023-2 5 season) 2024 Influenza Vaccine (Season Ended) 2025 HIB Vaccines Aged Out No longer eligi [...] patient's age to complete this topic Meningococcal B Vaccine Aged Out No l onger eligible based on patient's age to complete this topic RSV Immunization Patients Un tristian 20 months Aged Out No longer eligible b ased on patient's age to complete this topic Varicella Vaccines Aged Out No longer eligible based on patient's age to complete this topic
== END 2024-12-28 11:50 | disposition home or self-care (01) ==
LOC: HO.HOSX 11:49
PROVIDERS: Visit Provider Physician Assistant
DX: Z13.89 Encounter for screening for other disorder (principal)

== ENCOUNTER 2025-03-24 13:09 | Outpatient (REF) | payer MEDICAID, SELFPAY ==
--- NOTE | ~2025-03-24 | MM_ITS ---
EXAMINATION: MM SCREENING DIGITAL BREAST TOMOSYNTHESIS, BILATERAL CLINICAL INFORMATION: Screening. Asymptomatic. COMPARISON: Mammography: Comparison is made with available priors TECHNIQUE: Digital breast mammography with tomosynthesis is performed in both the craniocaudal and mediolateral oblique views along with computer-aided detection (CAD). FINDINGS: The breasts are heterogeneously dense, which may obscure small masses (ACR BI-RADS breast composition Category c). Bilateral circumscribed oval masses which wax and wane consistent with benign fibrocystic changes. Some were demonstrated to be simple cysts on prior ultrasound. Right: Focal asymmetry lower inner breast anterior depth. No suspicious calcifications or other abnormal findings. Left: Asymmetry superior breast middle depth on MLO view. Asymmetries middle depth lateral breast and medial breast on CC view. No suspicious calcifications. MM/MM tomosynthesis screening BI IMPRESSION: Additional imaging is recommended ASSESSMENT: BI-RADS BI-RADS 0 - Incomplete: Needs additional Imaging. RECOMMENDATION: 1. Additional views of the bilateral breasts. 2. Targeted ultrasound if warranted after review of the additional views. 3. Radiology department staff will contact the patient for additional imaging. Additional Imaging required This examination should not preclude the clinical evaluation of a suspicious palpable abnormality. This patient's information was entered into a reminder system with a target due date for their next mammogram. Electronically signed by: Yeny Aguirre DO 03/26/2025 02:35 PM EDT
--- OUTSIDE RECORDS SUMMARY | 2025-03-24 13:13 | XMS_ITS | Clinical Summary ---
Author Organization [facility] Address [address] [place] [address] Care Team Providers Care Air Brush Decorator Name Role Phone Unavailable Primary Care Provider Unavailabl e Social History Tobacco Use Types Packs/Day Years Used Date Smoking Tobacco: Every Day Cigarettes 0.5 28.5 Started: 09/15/1996 Smokeless Tobacco: Never Alcohol Use [...] 5 Years) and At-Risk Patients (6 to 49 Years) (1 of 2 - PCV) 11/22/1995 Cervical Cancer Screening: P ap Smear 1997 Colorectal Cancer Screening: Colonoscopy 08/18/2022 Depression Screening 08/18/2022 HIV Screening 08/18/2022 Hepatitis C Screening 08/18/2022 Social Influencers of Health Screening 08/18/2022 COVID-19 Vaccine (2023-2 5 season) 2024 Influenza Vaccine (#1) 2025 HIB Vaccines Aged Out No longer [...]
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
== END 2025-03-24 13:10 | disposition home or self-care (01) ==
LOC: HO.MAMMO 13:09
PROVIDERS: PCP Nurse Practitioner Family; Visit Provider Nurse Practitioner Family
DX: Z12.31 Encounter for screening mammogram for malignant neoplasm of breast (principal); R92.8 Other abnormal and inconclusive findings on diagnostic imaging of breast
CPT/HCPCS: 77063; 77067

== ENCOUNTER → 2025-03-24 15:00 | Outpatient (BNV) | payer MEDICAID, SELFPAY | PROVIDERS: PCP Nurse Practitioner Family; Visit Provider Internal Medicine | DX: Z12.31 Encounter for screening mammogram for malignant neoplasm of breast (principal) | CPT/HCPCS: 77063; 77067 ==

== ENCOUNTER 2025-04-29 06:53 | Outpatient (REF) | payer MEDICAID, SELFPAY ==
--- NOTE | ~2025-04-29 | MM_ITS ---
EXAMINATIONS: 1. MM DIAGNOSTIC DIGITAL BREAST TOMOSYNTHESIS, BILATERAL 2. Targeted ultrasound of the right breast 3. Targeted ultrasound of the left breast CLINICAL INFORMATION: Call back for abnormal findings in bilateral breasts: - Right breast focal asymmetry in the lower quadrant anterior depth - Left breast asymmetry in the upper breast middle depth on MLO view - Left breast asymmetry in the lateral breast at middle depth on the CC view - Left breast asymmetry in the medial breast at middle depth on the CC view COMPARISON: Comparison made to multiple prior, most recent screening mammogram on March 24, 2005, and most remote March 13, 2018. TECHNIQUE: Digital breast tomosynthesis is performed in full field ML 90 degrees views along with computer-aided detection (CAD). Synthesized 2D images are generated from the tomosynthesis. Spot compression tomosynthesis images were also obtained. FINDINGS: BREAST COMPOSITION: The breasts are heterogeneously dense, which may obscure small masses (ACR BI-RADS breast composition Category c). RIGHT BREAST: Previously described it focal asymmetry correlates with a 2.0 cm mass located in the lower inner quadrant centered at approximately 2.5 cm from the nipple. Targeted ultrasound of the right breast was performed at the location of the mammographic finding. Survey shows a 2.4 x 1.1 x 1.9 cm solid appearing mass at 4 o'clock position retroareolar position. No internal vascularity demonstrated with color Doppler evaluation. LEFT BREAST: - Previously described asymmetry in the upper breast is identified measuring approximately 1.2 cm at about 7 cm from the nipple, with probable correlate on the CC view located in the lateral breast at 7.5 cm from the nipple. Targeted ultrasound of the left breast was performed at the location of the mammographic finding. The survey shows a 1.4 x 0.9 x 1.1 cm simple cyst at 2 o'clock position 7 cm from the nipple. No abnormal vascularity demonstrated with color Doppler evaluation. - Previously described asymmetry in the lateral breast, centered at approximately 6.5 cm from the nipple is pliable with spot compression. In this same area, there is an approximately 0.8 cm oval mass. Targeted ultrasound was performed at the location of the mammographic finding. The survey shows a 0.7 x 0.4 x 0.5 cm simple cyst at 2 o'clock position 5 cm from the nipple. No suspicious sonographic findings seen in the vicinity. No abnormal vascularity is demonstrated with color Doppler evaluation. - Previously described asymmetry in the medial breast is redemonstrated on today's images, centered at approximately 5.5 cm from the nipple and correlates with the location of the grouped calcifications that has been described in 2018. The correlating finding on the ML 90 degrees is located along the retroareolar plane at about 3.0 cm from the nipple. Targeted ultrasound of the left breast was performed at the location of the mammographic finding. The survey centered at 8-10 o'clock position did not reveal suspicious mammographic findings. MM/MM tomosynthesis added view BI IMPRESSION: RIGHT BREAST: Solid-appearing 2.4 cm mass at 4 o'clock retroareolar position correlates with the mammographic finding. Suspicious findings. Ultrasound-guided needle core biopsy recommended. LEFT BREAST: 1. Simple cysts at 2 o'clock position 7 cm from the nipple and at 2 o'clock position 5 cm from the nipple. Benign findings. No dedicated imaging follow-up needed. 2. Focal asymmetry correlating with the location of grouped calcifications described in 2018 at approximately 9 o'clock position middle depth. No suspicious sonographic correlate. Probably benign. A 6-month follow-up mammogram is recommended. ASSESSMENT: BI-RADS 4 - Suspicious finding RECOMMENDATION: Biopsy recommended Results were discussed with the patient at time of visit with the help of a interpreter for the deaf on the phone. This patient's information was entered into a reminder system with a target due date for their next mammogram. Electronically signed by: Yovani Schmidt MD 04/29/2025 09:24 AM EDT
--- OUTSIDE RECORDS SUMMARY | 2025-04-29 06:56 | XMS_ITS | Encounter Summary ---
Author Organization [facility] Address [address] [place] [address] 7t [place] [address] Care Team Providers Care Fabrication And Layout Craftsman Name Role Phone Angela Trimble Primary Care Provider [phone] Fifi Rodriguez NP Primary Care Provider [phone] Pearl Cm PharmD Unavailable [phone] Reason for Visit * Reason Onset Date Comments call back 12/16/2022 Encounter Details Date Type Department Care Team ([facility] st Contact Info) Description 12/16/2022 Telephone [facility] MEDICINE [address] [place], [place] [phone] Angela Trimble FNP [address] [place], [place] [phone] call back Social History Tobacco Use Types [...] updated for PCP. Hospital summary: Admitted to [facility] from 11/02/22-11/06/22 when she presented as [...] follow up with trauma in 1-2 weeks. The [employer] workers had difficulty reaching pt. Multiple calls [...] APPT with psychiatrist. Please contact pt at [phone] * Telephone Encounter - Pete Jose Alejandro - 12/16/2022 9:19 AM EDT Tc from pt requesting a call back from [place], pt stated front end software developer called pt and booked an physiatristappt to be via televisit and the appt was in person. Please contact pt at [phone] documented in this encounter Plan of Treatment Upcoming Encounters Date Type Department Care Team ([facility] st Contact Info) Description 05/10/2025 1:00 PM EDT Procedure Visit [facility] MEDICINE [address] [place] [address] Fifi Rodriguez, CHLORINE PLANT OPERATOR [address] [place] [address] documented as of this encounter Visit Diagnoses Not on filedocumented in this encounter Care Teams Fabrication And Layout Craftsman Relationship Specialty Start Date End Date Angela Trimble FNP [address] [place] [address] PCP - General Family Medicine 08/12/22 10/12/23 Fifi Rodriguez, ERIC [address] [place] [address] PCP - General Family Medicine 10/13/23 Pearl Cm PharmD [address] [place] [address] Pharmacist Internal Medicine 04/29/24 documented as of this encounter
--- OUTSIDE RECORDS SUMMARY | 2025-04-29 06:56 | XMS_ITS | Patient Health Record ---
Author Organization [facility] Address [address] [place] [address] Care Team Providers Care Life Skills Educator Name Role Phone CYNTHIA CAMPBELL Primary Care Provider David Huerta Unavailable [phone] Reason For Referral Referring Provider First Name CYNTHIA Referring Provider Last Name ADRIAN Referred Organization [facility] Referred Provider David Valencia Referred Address [address],[place],[address], Referred Provider Specialty Gastroentero logy General Notes Leah Laboy 2024 11:30:15 AM > requested a [facility] from [facility] for visit with Dr. 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 Problem 2314366 Median arcuate ligament syndrome (I77.4) Active confirmed Plan Of Treatment Future Test Test Name Order Date UPPER GI ENDOSCOPY 08/19/2017 Next Appt Details Provider Name:David Valencia , 05/31/2025 11:10:00 AM, [address] [place] [address], [address], [place], [address], Insurance Providers Payer Name Payer Address Payer Phone Subscriber Number Group Number Insured Name Patient Relationship to Insured Coverage Start Date Coverage End Date MEDICAID OF [employer] [address] [place] [address] [id number] MEGHAN GUERRERO Self - patient is the insured Medical (General) History Medical History History ICD Code Hypertension Uterine cancer--surgery as below Positive serology for helico bacter pylori 05/12/2017--reportedy treated with antibiotics GERD 02/07/2017 Denies [place],DM,CVA,renal disease Asthma Urinary bladder problems--has an implant [...]
--- OUTSIDE RECORDS SUMMARY | 2025-04-29 06:56 | XMS_ITS | Clinical Summary ---
Author Organization [facility] Address [address] [place] [address] Care Team Providers Care Bank Officer Name Role Phone Unavailable Primary Care Provider Unavailabl e Social History Tobacco Use Types Packs/Day Years Used Date Smoking Tobacco: Every Day Cigarettes 0.5 28.6 Started: 09/15/1996 Smokeless Tobacco: Never Alcohol Use [...] Smear 1997 Colorectal Cancer Screening: Colonoscopy 08/18/2022 HIV Screening 08/18/2022 Hepatitis C Screening 08/18/2022 Social Influencers of Health Screening 08/18/2022 COVID-19 Vaccine ( - 2023-2 5 season) 2024 Depression Screening 09/15/2024 Influenza Vaccine (#1) 2025 HIB Vaccines Aged [...]
== END 2025-04-29 06:54 | disposition home or self-care (01) ==
LOC: HO.MAMMO 06:53
PROVIDERS: PCP Nurse Practitioner Family; Visit Provider Nurse Practitioner Family
DX: N64.89 Other specified disorders of breast (principal)
CPT/HCPCS: 76642; 77062; 77066

== ENCOUNTER → 2025-04-29 07:30 | Outpatient (BNV) | payer MEDICAID, SELFPAY | PROVIDERS: PCP Nurse Practitioner Family; Visit Provider Radiology Body Imaging | DX: N63.24 Unspecified lump in the left breast, lower inner quadrant (principal); N60.02 Solitary cyst of left breast | CPT/HCPCS: 76642; 77062; 77066 ==

== ENCOUNTER 2025-05-03 10:24 | Outpatient (AMB) | payer MEDICAID, SELFPAY ==
--- NOTE | 2025-05-03 10:35 | MHC.OFFVIS ---
Vital Signs 05/03/25 10:50 Height 5 ft 5 in Weight 177 lb BMI 29.5 BP 124/74 Blood Pressure Location Rt brachial Position Sitting Pulse 107 H Intake Visit Reasons: (R) Breast US bx mass Aureola Intake Note: Patient here for consultation Rt breast bx, mass areola. Patient c/o: denies feeling mass, bumps on breasts. Denies nipple discharge. No family known hx of breast CA. Biopsy scheduled~ 05-09-25 @ 10am. Hospice Nurse Practitioner Required: Yes Accompanied by: Self / Same As Patient Allergies Penicillins (PENICILLINS) Allergy (Severe, Verified 05/03/25 10:43) DIFFICULTY BREATHING Sulfa (Sulfonamide Antibiotics) (SULFA (SULFONAMIDE ANTIBIOTICS)) Allergy (Severe, Verified 05/03/25 10:43) DIFFICULTY BREATHING latex (LATEX) Allergy (Intermediate, Verified 05/03/25 10:43) RASH penicillin V Allergy (Unknown, Verified 05/03/25 10:43) Unknown vancomycin (VANCOMYCIN) Allergy (Unknown, Verified 05/03/25 10:43) UNKNOWN erythromycin base Allergy (Verified 05/03/25 10:43) Anaphylaxis LATEX Allergy (Unknown, Uncoded 05/03/25 10:43) unk Medication List - Last Reconciled 05/05/25 by David Zambrano MD albuterol sulfate 90 mcg/actuation (ProAir HFA) 2 puffs inhalation Q4-6H PRN albuterol sulfate 90 mcg/actuation (Ventolin HFA) 2 puffs inhalation Q6H PRN ascorbic acid (vitamin C) (Vitamin C) 1,000 mg PO DAILY aspirin 81 mg PO DAILY atorvastatin 20 mg PO BEDTIME cetirizine 10 mg PO DAILY PRN cholecalciferol (vitamin D3) (Vitamin D3) 50 mcg PO DAILY cyclobenzaprine 10 mg PO Q8H PRN cyclobenzaprine 5 mg PO TID PRN docusate sodium 100 mg PO BID hydroxyzine pamoate 50 mg PO BID PRN lidocaine 5% (Lidoderm) 1 patch topical DAILY lidocaine 5% (Lidoderm) 1 patch topical DAILY olanzapine 20 mg PO BEDTIME 30 days olmesartan 40 mg PO DAILY pantoprazole 40 mg PO DAILY propranolol ER 160 mg PO BEDTIME sumatriptan succinate 50 mg PO Q2-4H PRN tiotropium bromide (Spiriva with HandiHaler) 1 cap inhalation DAILY topiramate 25 mg PO BID valacyclovir (Valtrex) 1,000 mg PO DAILY 30 days HPI Comments Details: 49-year-old female patient presenting with a screening mammogram performed on 03/24/2025 with follow-up images and ultrasound bilateral breast performed on 04/29/2025 which reveal in the right breast a 2.4 x 1.1 x 1.9 cm solid-appearing mass in the 4 o'clock retroareolar position. This was confirmed on ultrasound and follow-up images. Findings were felt to be suspicious for malignancy and ultrasound-guided core biopsy recommended. She denies a previous history of breast problems or breast surgery. Her family history is negative for breast cancer. She is scheduled for a sonographic biopsy at the [facility] on 05/09/2025. [facility] Medical History Major depressive disorder, recurrent episode, severe with anxious distress Surgical History H/O hemorrhoidectomy History of partial hysterectomy H/O eye surgery History of appendectomy Family History Father Bone cancer Mother Ovarian cancer Sister Mouth cancer Social History Household Members: Family Housing: Apartment Do you presently have visiting nurse or other home services: No Alcohol intake: never Comment: asleep Cigarette Packs Per Day: 1 Cigarettes Per Day: 20.0 Years Smoked: since age 13 Second Hand Smoke Exposure: Yes Substance Use Type: Marijuana service: No Current occupational status: unemployed Current occupation: Right Handed Sexual orientation: Straight/Heterosexual Review of Systems Const All systems reviewed & are unremarkable except as noted in HPI and below Physical Exam Vital Signs: Last Vital Signs Pulse 107 H 05/03/25 10:50 BP 124/74 05/03/25 10:50 BMI result Body Mass Index 29.5 Const General: cooperative and no acute distress Nutritional Appearance: well nourished Orientation/consciousness: patient oriented x3 Limitations: no limitations HEENT Head: Yes normocephalic and Yes atraumatic Ears: hearing grossly normal bilaterally Chest Other: Left breast: No skin change, no nipple retraction, no nipple discharge, no palpable mass, no enlarged lymph nodes. Right breast: No skin change, no nipple retraction, no nipple discharge, no enlarged lymph nodes, palpable mass noted in the 3 to the 4 o'clock position just medial to the areola measuring approximately 1.5-2 cm in diameter, mobile within the breast tissue with no overlying skin changes. Chest/axillae images:  1. Site of palpable mass corresponding to the ultrasound findings. Resp Effort & Inspection: normal respiratory effort, no audible wheezes, no cough and no respiratory distress Cardio Jugular venous distension: no JVD GI Inspection: Yes normal to inspection Skin Other: Warm, dry, no rash Neuro General: patient oriented x3 Extrem General: Yes no clubbing, cyanosis or edema Assessment & Plan Assessment & Plan (1) Abnormal mammogram of right breast: Code(s): R92.8 - Other abnormal and inconclusive findings on diagnostic imaging of breast Category: Medical (2) Abnormal ultrasound of breast: Code(s): R92.8 - Other abnormal and inconclusive findings on diagnostic imaging of breast Category: Medical Plan 49-year-old female patient presenting with a screening mammogram with follow-up images and ultrasound which confirmed a suspicious solid mass in the right breast at the 4 o'clock position. On examination there is a palpable mass which is smooth and mobile within the breast tissue without fixation to the skin or chest wall. No other palpable mass or enlarged lymph nodes are appreciated. I recommended the patient return approximately 1 week following the breast biopsy to review the pathology results and discuss treatment options. She expressed understanding and agrees with the plan. Orders: Orders US breast ndl core biopsy RT 05/03/25 R92.8 - Other abnormal and inconclusive findings on diagnostic imaging of breast Coding Level of Care Code New Pt Level 4 (42443) Diagnoses Abnormal mammogram of right breast R92.8 Abnormal ultrasound of breast R92.8
[2025-05-03 10:50] VITALS: BP 124/74; PULSE 107; BMI 29.5
--- OUTSIDE RECORDS SUMMARY | 2025-05-03 11:43 | XMS_ITS | Encounter Summary ---
Author Organization [facility] Address [address] [place] [address] 7[address] [place] [address] Care Team Providers Care Corporate Quality Assurance Manager Name Role Phone Angela Trimble Primary Care Provider [phone] Fifi Rodriguez NP Primary Care Provider [phone] Pearl Cm PharmD Unavailable [phone] Reason for Visit * Reason Onset Date Comments call back 12/16/2022 Encounter Details Date Type Department Care Team ([facility] st Contact Info) Description 12/16/2022 Telephone [facility] MEDICINE [address] [place], [place] [phone] Angela Trimble FNP [address] [place], [place] [phone] call back Social History Tobacco Use Types [...] updated for PCP. Hospital summary: Admitted to [facility] from 11/02/22-11/06/22 when she presented as [...] follow up with trauma in 1-2 weeks. [employer] workers had difficulty reaching pt. Multiple calls [...] APPT with psychiatrist. Please contact pt at [phone] * Telephone Encounter - Pete Jose Alejandro - 12/16/2022 9:19 AM EDT Tc from pt requesting a call back from [place], pt stated front office help called pt and booked an physiatristappt to be via televisit and the appt was in person. Please contact pt at [phone] documented in this encounter Plan of Treatment Upcoming Encounters Date Type Department Care Team ([facility] st Contact Info) Description 05/10/2025 1:00 PM EDT Procedure Visit [facility] MEDICINE [address] [place] [address] Fifi Rodriguez, MESSENGER FLOORPERSON [address] [place] [address] documented as of this encounter Visit Diagnoses Not on filedocumented in this encounter Care Teams Corporate Quality Assurance Manager Relationship Specialty Start Date End Date Angela Trimble FNP [address] [place] [address] PCP - General Family Medicine 08/12/22 10/12/23 Fifi Rodriguez, ERIC [address] [place] [address] PCP - General Family Medicine 10/13/23 Pearl Cm PharmD [address] [place] [address] Pharmacist Internal Medicine 04/29/24 documented as of this encounter
--- OUTSIDE RECORDS SUMMARY | 2025-05-03 11:44 | XMS_ITS | Clinical Summary ---
Author Organization [facility] Address [address] [place] [address] Care Team Providers Care Perinatal Specialist Name Role Phone Unavailable Primary Care Provider [...]
--- OUTSIDE RECORDS SUMMARY | 2025-05-03 11:44 | XMS_ITS | Patient Health Record ---
Author Organization [facility] Address [address] [place] [address] Care Team Providers Care Mate Relief Name Role Phone CYNTHIA CAMPBELL Primary Care Provider David Huerta Unavailable [phone] Reason For Referral Referring Provider First Name CYNTHIA Referring Provider Last Name ADRIAN Referred Organization [facility] Referred Provider David Valencia Referred Address [address],[place],[address], Referred Provider Specialty Gastroentero logy General Notes Leah Laboy 2024 11:30:15 AM > requested a [facility] referral from [facility] for visit with Dr. 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 Problem 2429476 Median arcuate ligament syndrome (I77.4) Active confirmed Plan Of Treatment Future Test Test Name Order Date UPPER GI ENDOSCOPY 08/19/2017 Next Appt Details Provider Name:David Valencia , 05/31/2025 11:10:00 AM, [address] [place] [address], [address], [place], [address], Insurance Providers Payer Name Payer Address Payer Phone Subscriber Number Group Number Insured Name Patient Relationship to Insured Coverage Start Date Coverage End Date MEDICAID [facility] [address] [place] [address] [id number] MEGHAN GUERRERO Self - patient is the [...]
== END 2025-05-03 11:10 | disposition home or self-care (01) ==
LOC: HO.HGS 10:25
PROVIDERS: PCP Nurse Practitioner Family; Visit Provider Surgery
DX: R92.8 Other abnormal and inconclusive findings on diagnostic imaging of breast (principal)
CPT/HCPCS: 99204

== ENCOUNTER → 2025-05-03 10:24 | Outpatient (BNVA) | payer MEDICAID, SELFPAY | PROVIDERS: PCP Nurse Practitioner Family; Visit Provider Surgery | DX: Z71.2 Person consulting for explanation of examination or test findings (principal); N63.13 Unspecified lump in the right breast, lower outer quadrant; R92.8 Other abnormal and inconclusive findings on diagnostic imaging of breast | CPT/HCPCS: 99202 ==

== ENCOUNTER 2025-05-09 09:07 | Outpatient (REF) | payer MEDICAID, SELFPAY ==
--- NOTE | ~2025-05-09 | MM_ITS ---
PROCEDURE/EXAMINATION: 1. ULTRASOUND GUIDED NEEDLE CORE BIOPSY BREAST, RIGHT 2. POST PROCEDURE DIGITAL MAMMOGRAM, RIGHT CLINICAL INFORMATION: Patient is status post right breast mammogram/ultrasound workup on April 29, 2025 that described a solid mass at 4 o'clock position retroareolar position, for which an ultrasound-guided needle core biopsy was recommended. COMPARISON: Right breast diagnostic mammogram/ultrasound on April 29, 2025. FINDINGS: Proper informed consent is obtained from the patient after discussion of the procedure, potential risks and complications, and alternatives, with the help of the certified manager architecture in the room. Patient was given an opportunity for questions. The patient appeared to understand. The patient consented to the procedure and signed the consent form. GUIDANCE: Ultrasound-guided; aseptic technique. LESION: Solid mass at 4 o'clock position at 1 cm from the nipple. APPROACH: Medial. ANESTHESIA: 7 cc of lidocaine 1% buffered with Sodium Bicarbonate 8.4% (9cc: 1cc). NEEDLE: 14-gauge Bard Marquee biopsy device with co-axial introducer. CORES: 4. CLIP: Mammotome shape: butterfly. POST PROCEDURE UNILATERAL DIGITAL MAMMOGRAM: The post biopsy mammogram is performed in separate room using separate digital mammography equipment from the biopsy procedure. ML 90 degrees, MLO and CC views are obtained. The butterfly clip marker is in satisfactory position. No gross hematoma. The patient tolerated the procedure well. No immediate complications. Home instructions reviewed with the patient. Final pathology results are pending. ASSESSMENT: Post procedure - Marker Placement MM/MM diagnostic mammo unilat RT IMPRESSION: 1. Status post ultrasound-guided core biopsy of solid mass at 4 o'clock position at 1 cm from the nipple of the right breast. 2. Clip placed: Mammotome shape: butterfly. 3. Pathology pending. An addendum report will be issued. Electronically signed by: Yovani Schmidt MD 05/09/2025 11:59 AM EDT
--- OUTSIDE RECORDS SUMMARY | 2025-05-09 09:51 | XMS_ITS | Clinical Summary ---
Author Organization [facility] Address [address] [place] [address] Care Team Providers Care Mechanic Welder Truck Driver Name Role Phone Unavailable Primary [...]
--- OUTSIDE RECORDS SUMMARY | 2025-05-09 09:51 | XMS_ITS | Encounter Summary ---
Author Organization [employer] Address [address] [place] [address] [address] [place] [address] Care Team Providers Care Supervisor Delivery Department Name Role Phone Angela Trimble Primary Care Provider [phone] Fifi Rodriguez NP Primary Care Provider [phone] Pearl Cm PharmD Unavailable [phone] Reason for Visit * Reason Onset Date Comments call back 12/16/2022 Encounter Details Date Type Department Care Team ([facility] st Contact Info) Description 12/16/[address] [facility] MED[facility]INE [address] [place], [place] [phone] Angela Trimble FNP [address] [place], [place] [phone] call back Social History Tobacco Use Types [...] updated for PCP. Hospital summary: Admitted to [facility] from 11/02/22-11/06/22 when she presented as [...] follow up with trauma in 1-2 weeks. [employer] workers had difficulty reaching pt. Multiple calls [...] APPT with psychiatrist. Please contact pt at [phone] * Telephone Encounter - Pete Jose Alejandro - 12/16/2022 9:19 AM EDT Tc from pt requesting a call back from [place], pt stated front desk auxiliary called pt and booked an physiatristappt to be via televisit and the appt was in person. Please contact pt at [phone] documented in this encounter Plan of Treatment Upcoming Encounters Date Type Department Care Team ([facility] st Contact Info) Description 05/10/2025 1:00 PM EDT Procedure Visit [facility] MED[facility]INE [address] [place] [address] Fifi Rodriguez, SOCIAL MEDIA PROJECT MANAGER [address] [place] [address] documented as of this encounter Visit Diagnoses Not on filedocumented in this encounter Care Teams Supervisor Delivery Department Relationship Specialty Start Date End Date Angela Trimble FNP [address] [place] [phone] PCP - General Family Medicine 08/12/22 10/12/23 Fifi Rodriguez, ERIC [address] [place] [id number] PCP - General Family Medicine 10/13/23 Pearl Cm PharmD [address] [place] [phone] Pharmacist Internal Medicine 04/29/24 documented as of this encounter
[2025-05-09] MEDS: Lidocaine HCl 1 % 20 ML VIAL 9 ML SUBCUT (11:39)
== END 2025-05-09 09:08 | disposition home or self-care (01) ==
LOC: HO.MAMMO 09:07
PROVIDERS: PCP Nurse Practitioner Family; Visit Provider Nurse Practitioner Family
DX: Z12.31 Encounter for screening mammogram for malignant neoplasm of breast (principal); R92.8 Other abnormal and inconclusive findings on diagnostic imaging of breast; R92.30 Dense breasts, unspecified; N63.14 Unspecified lump in the right breast, lower inner quadrant
CPT/HCPCS: 19083; 77062; 77065; 88305; A4648; J2003

== ENCOUNTER → 2025-05-09 10:00 | Outpatient (BNV) | payer MEDICAID, SELFPAY | PROVIDERS: PCP Nurse Practitioner Family; Visit Provider Radiology Body Imaging | DX: N63.14 Unspecified lump in the right breast, lower inner quadrant (principal) | CPT/HCPCS: 19083; 77065 ==

== ENCOUNTER 2025-05-17 08:37 | Outpatient (AMB) | payer MEDICAID, SELFPAY ==
--- NOTE | 2025-05-17 08:53 | A.OFFVIS_ITS ---
Vital Signs 05/17/25 08:59 Height 5 ft 5 in Weight 177 lb BMI 29.5 BP 157/88 H Blood Pressure Location Rt brachial Position Sitting Pulse 86 Intake Visit Reasons: (R) Breast US bx mass/results Intake Note: Patient is seen in office for biopsy RESULTS, right breast. Pt c/o: feeling a little anxious for results. 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 Accompanied by: Self / Same As Patient Allergies Penicillins (PENICILLINS) Allergy (Severe, Verified 05/17/25 09:00) DIFFICULTY BREATHING Sulfa (Sulfonamide Antibiotics) (SULFA (SULFONAMIDE ANTIBIOTICS)) Allergy (Severe, Verified 05/17/25 09:00) DIFFICULTY BREATHING latex (LATEX) Allergy (Intermediate, Verified 05/17/25 09:00) RASH penicillin V Allergy (Unknown, Verified 05/17/25 09:00) Unknown vancomycin (VANCOMYCIN) Allergy (Unknown, Verified 05/17/25 09:00) UNKNOWN erythromycin base Allergy (Verified 05/17/25 09:00) Anaphylaxis LATEX Allergy (Unknown, Uncoded 05/17/25 09:00) unk Medication List - Last Reconciled 05/17/25 by David Zambrano MD albuterol sulfate 90 mcg/actuation (ProAir HFA) 2 puffs inhalation Q4-6H PRN albuterol sulfate 90 mcg/actuation (Ventolin HFA) 2 puffs inhalation Q6H PRN ascorbic acid (vitamin C) (Vitamin C) 1,000 mg PO DAILY aspirin 81 mg PO DAILY atorvastatin 20 mg PO BEDTIME cetirizine 10 mg PO DAILY PRN cholecalciferol (vitamin D3) (Vitamin D3) 50 mcg PO DAILY cyclobenzaprine 10 mg PO Q8H PRN cyclobenzaprine 5 mg PO TID PRN docusate sodium 100 mg PO BID hydroxyzine pamoate 50 mg PO BID PRN lidocaine 5% (Lidoderm) 1 patch topical DAILY lidocaine 5% (Lidoderm) 1 patch topical DAILY olanzapine 20 mg PO BEDTIME 30 days olmesartan 40 mg PO DAILY pantoprazole 40 mg PO DAILY propranolol ER 160 mg PO BEDTIME sumatriptan succinate 50 mg PO Q2-4H PRN tiotropium bromide (Spiriva with HandiHaler) 1 cap inhalation DAILY topiramate 25 mg PO BID valacyclovir (Valtrex) 1,000 mg PO DAILY 30 days HPI Comments Details: 49-year-old female patient presenting with a screening mammogram performed on 03/24/2025 with follow-up images and ultrasound bilateral breast performed on 04/29/2025 which reveal in the right breast a 2.4 x 1.1 x 1.9 cm solid-appearing mass in the 4 o'clock retroareolar position. This was confirmed on ultrasound and follow-up images. Findings were felt to be suspicious for malignancy and ultrasound-guided core biopsy recommended. She denies a previous history of breast problems or breast surgery. Her family history is negative for breast cancer. She underwent a sonographic biopsy at the [facility] on 05/09/2025. She returns today feeling well with no complaints. Pathology revealed cores of benign breast tissue with dense stromal fibrosis, consistent with pseudoangiomatous stromal hyperplasia; no atypia or malignancy was identified. She tolerated the procedure well and denies any ongoing breast symptoms at this time. She was provided with a copy of the pathology report. [facility] Medical History Major depressive disorder, recurrent episode, severe with anxious distress Surgical History H/O hemorrhoidectomy History of partial hysterectomy H/O eye surgery History of appendectomy Family History Father Bone cancer Mother Ovarian cancer Sister Mouth cancer Social History Household Members: Family Housing: Apartment Do you presently have visiting nurse or other home services: No Alcohol intake: never Comment: asleep Cigarette Packs Per Day: 1 Cigarettes Per Day: 20.0 Years Smoked: since age 13 Second Hand Smoke Exposure: Yes Substance Use Type: Marijuana service: No Current occupational status: unemployed Current occupation: Right Handed Sexual orientation: Straight/Heterosexual Physical Exam Vital Signs: Last Vital Signs Pulse 86 05/17/25 08:59 BP 157/88 H 05/17/25 08:59 BMI result Body Mass Index 29.5 Const General: cooperative and no acute distress Nutritional Appearance: well nourished Orientation/consciousness: patient oriented x3 Limitations: no limitations HEENT Head: Yes normocephalic and Yes atraumatic Ears: hearing grossly normal bilaterally Chest Other: Examination deferred Resp Effort & Inspection: normal respiratory effort, no audible wheezes, no cough and no respiratory distress Cardio Jugular venous distension: no JVD GI Inspection: Yes normal to inspection Skin Other: Warm, dry, no rash Neuro General: patient oriented x3 Extrem General: Yes no clubbing, cyanosis or edema Assessment & Plan Assessment & Plan (1) Abnormal mammogram of right breast: Code(s): R92.8 - Other abnormal and inconclusive findings on diagnostic imaging of breast Category: Medical (2) Abnormal ultrasound of breast: Code(s): R92.8 - Other abnormal and inconclusive findings on diagnostic imaging of breast Category: Medical Plan 49-year-old female patient returning 1 week following a ultrasound-guided core biopsy of the right breast, 04:00 which revealed cores of benign breast tissue with dense stromal fibrosis consistent with pseudoangiomatous stromal hyperplasia. No atypia or malignancy was identified. Patient tolerated the procedure well. She will continue with routine screening and should follow up as needed. Coding Level of Care Code Est Pt Level 3 (18461) Diagnoses Abnormal mammogram of right breast R92.8 Abnormal ultrasound of breast R92.8
[2025-05-17 08:59] VITALS: BP 157/88; PULSE 86; BMI 29.5
--- OUTSIDE RECORDS SUMMARY | 2025-05-17 09:20 | XMS_ITS | Clinical Summary ---
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 given an opportunity for questions. The patient appeared to understand. The patient consented to the procedure and signed the consent form. GUIDANCE: Ultrasound-guided; aseptic technique. LESION: Solid mass at 4 o'clock position at 1 cm from the nipple. APPROACH: Medial. ANESTHESIA: 7 cc of lidocaine 1% buffered with Sodium Bicarbonate 8.4% (9cc: 1cc). NEEDLE: 14-gauge Bard Marquee biopsy device with co-axial introducer. CORES: 4. CLIP: Mammotome shape: butterfly. POST PROCEDURE UNILATERAL DIGITAL MAMMOGRAM: The post biopsy mammogram is performed in separate room using separate digital mammography equipment from the biopsy procedure. ML 90 degrees, MLO and CC views are obtained. The butterfly clip marker is in satisfactory position. No gross hematoma. The patient tolerated the procedure well. No immediate complications. Home instructions reviewed with the patient. Final pathology results are pending. ASSESSMENT: Post procedure - Marker Placement US/US breast ndl core biopsy RT IMPRESSION: 1. Status post ultrasound-guided core biopsy of solid mass at 4 o'clock position at 1 cm from the nipple of the right breast. 2. Clip placed: Mammotome shape: butterfly. 3. Pathology pending. An addendum report will be issued. Electronically signed by: Yovani Schmidt MD 05/09/2025 11:59 AM EDT Dictated By: Yovani Schmidt MD Signed By: <Electronically signed by Yovani Schmidt MD in OV> 05/09/25 1159 DD/ 1030 TD/TT: 05/09/25 1130 Spring Machine Operator: us [facility] External Provider IMG US PROCEDURES Final Result * Mammogram Diagnostic Right (05/09/2025 10:22 AM EDT) Anatomical Region Laterality Modality Breast Right Mammography 05/09/2025 10:2 2 AM EDT Narrative 05/09/2025 12:02 PM EDT [facility] [address] [place] [address] Mammography Report Signed Patient: Naina Wayne MR#: [id number] : 1975 Acct:[id number] Age/Sex: 49 / F ADM Date: 05/09/25 Loc: HO.MAMMO Attending Dr: Fifi Rodriguez BATCH TRUCKER Ordering Physician: Fifi Rodriguez BATCH TRUCKER Results: 88Post Procedure Mammograms For Marker Placement Date of Service: 05/09/25 Follow Up: 1 Year From [facility] Mammogram Procedure(s): MM diagnostic mammo unilat RT Accession Number(s): [id number] cc: Fifi Rodriguez NP PROCEDURE/EXAMINATION: 1. ULTRASOUND GUIDED NEEDLE CORE BIOPSY BREAST, RIGHT 2. POST PROCEDURE DIGITAL MAMMOGRAM, RIGHT CLINICAL INFORMATION: Patient is status post right breast mammogram/ultrasound workup on April 29, 2025 that described a solid mass at 4 o'clock position retroareolar position, for which an ultrasound-guided needle core biopsy was recommended. COMPARISON: Right breast diagnostic mammogram/ultrasound on April 29, 2025. FINDINGS: Proper informed consent is obtained from the patient after discussion of the procedure, potential risks and complications, and alternatives, with the help of the certified it programmer analyst in the room. Patient was given an opportunity for questions. The patient appeared to understand. The patient consented to the procedure and signed the consent form. GUIDANCE: Ultrasound-guided; aseptic technique. LESION: Solid mass at 4 o'clock position at 1 cm from the nipple. APPROACH: Medial. ANESTHESIA: 7 cc of lidocaine 1% buffered with Sodium Bicarbonate 8.4% (9cc: 1cc). NEEDLE: 14-gauge Bard Marquee biopsy device with co-axial introducer. CORES: 4. CLIP: Mammotome shape: butterfly. POST PROCEDURE UNILATERAL DIGITAL MAMMOGRAM: The post biopsy mammogram is performed in separate room using separate digital mammography equipment from the biopsy procedure. ML 90 degrees, MLO and CC views are obtained. The butterfly clip marker is in satisfactory position. No gross hematoma. The patient tolerated the procedure well. No immediate complications. Home instructions reviewed with the patient. Final pathology results are pending. ASSESSMENT: Post procedure - Marker Placement MM/MM diagnostic mammo unilat RT IMPRESSION: 1. Status post ultrasound-guided core biopsy of solid mass at 4 o'clock position at 1 cm from the nipple of the right breast. 2. Clip placed: Mammotome shape: butterfly. 3. Pathology pending. An addendum report will be issued. Electronically signed by: Yovani Schmidt MD 05/09/2025 11:59 AM EDT Dictated By: Yovani Schmidt MD Signed By: <Electronically signed by Yovani Schmidt MD in OV> 05/09/25 1159 DD/ 1022 TD/TT: 05/09/25 1130 Spring Machine Operator: Procedure Note Donotuseinterpreter, Image - 05/09/2025 [place] [facility] [address] [place], [place] [address] Mammography Report Signed Patient: Nely Wayne#: [id number] : 1975Acct:[id number] Age/Sex: 49 / FADM Date: 05/09/25 Loc: HO.MAMMO Attending Dr: Fifi Rodriguez BATCH TRUCKER Ordering Physician: Fifi Rodriguez NPResults: 88Post Procedure Mammograms For Marker Placement Date of Service: 05/09/25Follow Up: 1 Year From [facility] Mammogram Procedure(s): MM diagnostic mammo unilat RT Accession Number(s): [id number] cc: Fifi Rodriguez BATCH TRUCKER PROCEDURE/EXAMINATION: 1. ULTRASOUND GUIDED NEEDLE CORE BIOPSY BREAST, RIGHT 2. POST PROCEDURE DIGITAL MAMMOGRAM, RIGHT CLINICAL INFORMATION: Patient is status post right breast mammogram/ultrasound workup on April 29, 2025 that described a solid mass at 4 o'clock position retroareolar position, for which an ultrasound-guided needle core biopsy was recommended. COMPARISON: Right breast diagnostic mammogram/ultrasound on April 29, 2025. FINDINGS: Proper informed consent is obtained from the patient after discussion of the procedure, potential risks and complications, and alternatives, with the help of the certified it programmer analyst in the room. Patient was given an opportunity for questions. The patient appeared to understand. The patient consented to the procedure and signed the consent form. GUIDANCE: Ultrasound-guided; aseptic technique. LESION: Solid mass at 4 o'clock position at 1 cm from the nipple. APPROACH: Medial. ANESTHESIA: 7 cc of lidocaine 1% buffered with Sodium Bicarbonate 8.4% (9cc: 1cc). NEEDLE: 14-gauge Bard Marquee biopsy device with co-axial introducer. CORES: 4. CLIP: Mammotome shape: butterfly. POST PROCEDURE UNILATERAL DIGITAL MAMMOGRAM: The post biopsy mammogram is performed in separate room using separate digital mammography equipment from the biopsy procedure. ML 90 degrees, MLO and CC views are obtained. The butterfly clip marker is in satisfactory position. No gross hematoma. The patient tolerated the procedure well. No immediate complications. Home instructions reviewed with the patient. Final pathology results are pending. ASSESSMENT: Post procedure - Marker Placement MM/MM diagnostic mammo unilat RT IMPRESSION: 1. Status post ultrasound-guided core biopsy of solid mass at 4 o'clock position at 1 cm from the nipple of the right breast. 2. Clip placed: Mammotome shape: butterfly. 3. Pathology pending. An addendum report will be issued. Electronically signed by: Yovani Schmidt MD 05/09/2025 11:59 AM EDT RP Workstation: [employer] Dictated By: Yovani Schmidt MD Signed By: <Electronically signed by Yovani Schmidt MD in OV> 05/09/25 1159 DD/ 1022 TD/TT: 05/09/25 1130 Spring Machine Operator: us Fifi Rodriguez BATCH TRUCKER IMG BI PROCEDURES Final Result * BI US Breast Limited Bilateral (04/29/2025 7:16 AM EDT) Anatomical Region Laterality Modality Breast Bilateral Ultrasound 04/29/2025 7:16 AM EDT Narrative 04/29/2025 9:28 AM EDT [facility] [address] [place] [address] Ultrasound Report Signed Patient: Naina Wayne MR#: [id number] : 1975 Acct:[id number] Age/Sex: 49 / F ADM Date: 04/29/25 Loc: HO.MAMMO Attending Dr: Fifi Rodriguez BATCH TRUCKER Ordering Physician: Fifi Rodriguez NP Date of Service: 04/29/25 Procedure(s): US breast BI limited mamm only Accession Number(s): [id number] cc: Graef,Fifi B BATCH TRUCKER EXAMINATIONS: 1. MM DIAGNOSTIC DIGITAL BREAST TOMOSYNTHESIS, BILATERAL 2. Targeted ultrasound of the right breast 3. Targeted ultrasound of the left breast CLINICAL INFORMATION: Call back for abnormal findings in bilateral breasts: - Right breast focal asymmetry in the lower quadrant anterior depth - Left breast asymmetry in the upper breast middle depth on MLO view - Left breast asymmetry in the lateral breast at middle depth on the CC view - Left breast asymmetry in the medial breast at middle depth on the CC view COMPARISON: Comparison made to multiple prior, most recent screening mammogram on March 24, 2005, and most remote March 13, 2018. TECHNIQUE: Digital breast tomosynthesis is performed in full field ML 90 degrees views along with computer-aided detection (CAD). Synthesized 2D images are generated from the tomosynthesis. Spot compression tomosynthesis images were also obtained. FINDINGS: BREAST COMPOSITION: The breasts are heterogeneously dense, which may obscure small masses (ACR BI-RADS breast composition Category c). RIGHT BREAST: Previously described it focal asymmetry correlates with a 2.0 cm mass located in the lower inner quadrant centered at approximately 2.5 cm from the nipple. Targeted ultrasound of the right breast was performed at the location of the mammographic finding. Survey shows a 2.4 x 1.1 x 1.9 cm solid appearing mass at 4 o'clock position retroareolar position. No internal vascularity demonstrated with color Doppler evaluation. LEFT BREAST: - Previously described asymmetry in the upper breast is identified measuring approximately 1.2 cm at about 7 cm from the nipple, with probable correlate on the CC view located in the lateral breast at 7.5 cm from the nipple. Targeted ultrasound of the left breast was performed at the location of the mammographic finding. The survey shows a 1.4 x 0.9 x 1.1 cm simple cyst at 2 o'clock position 7 cm from the nipple. No abnormal vascularity demonstrated with color Doppler evaluation. - Previously described asymmetry in the lateral breast, centered at approximately 6.5 cm from the nipple is pliable with spot compression. In this same area, there is an approximately 0.8 cm oval mass. Targeted ultrasound was performed at the location of the mammographic finding. The survey shows a 0.7 x 0.4 x 0.5 cm simple cyst at 2 o'clock position 5 cm from the nipple. No suspicious sonographic findings seen in the vicinity. No abnormal vascularity is demonstrated with color Doppler evaluation. - Previously described asymmetry in the medial breast is redemonstrated on today's images, centered at approximately 5.5 cm from the nipple and correlates with the location of the grouped calcifications that has been described in 2018. The correlating finding on the ML 90 degrees is located along the retroareolar plane at about 3.0 cm from the nipple. Targeted ultrasound of the left breast was performed at the location of the mammographic finding. The survey centered at 8-10 o'clock position did not reveal suspicious mammographic findings. US/US breast BI limited mamm only IMPRESSION: RIGHT BREAST: Solid-appearing 2.4 cm mass at 4 o'clock retroareolar position correlates with the mammographic finding. Suspicious findings. Ultrasound-guided needle core biopsy recommended. LEFT BREAST: 1. Simple cysts at 2 o'clock position 7 cm from the nipple and at 2 o'clock position 5 cm from the nipple. Benign findings. No dedicated imaging follow-up needed. 2. Focal asymmetry correlating with the location of grouped calcifications described in 2018 at approximately 9 o'clock position middle depth. No suspicious sonographic correlate. Probably benign. A 6-month follow-up mammogram is recommended. ASSESSMENT: BI-RADS 4 - Suspicious finding RECOMMENDATION: Biopsy recommended Results were discussed with the patient at time of visit with the help of a it programmer analyst on the phone. This patient's information was entered into a reminder system with a target due date for their next mammogram. Electronically signed by: Yovani Schmidt MD 04/29/2025 09:24 AM EDT Dictated By: Yovani Schmidt MD Signed By: <Electronically signed by Yovani Schmidt MD in OV> 04/29/25 0924 DD/ 0716 TD/TT: 04/29/25 0814 Spring Machine Operator: Procedure Note Donotuseinterpreter, Image - 04/29/2025 [facility] [address] [place] [address] [place] [address] Ultrasound Report Signed Patient: Naina WayneMR#: [id number] : 1975Acct:[id number] Age/Sex: 49 / FADM Date: 04/29/25 Loc: HO.MAMMO Attending Dr: Fifi Rodriguez BATCH TRUCKER Ordering Physician: Fifi Rodriguez NP Date of Service: 04/29/25 Procedure(s): US breast BI limited mamm only Accession Number(s): [id number] cc: Fifi Rodriguez BATCH TRUCKER EXAMINATIONS: 1. MM DIAGNOSTIC DIGITAL BREAST TOMOSYNTHESIS, BILATERAL 2. Targeted ultrasound of the right breast 3. Targeted ultrasound of the left breast CLINICAL INFORMATION: Call back for abnormal findings in bilateral breasts: - Right breast focal asymmetry in the lower quadrant anterior depth - Left breast asymmetry in the upper breast middle depth on MLO view - Left breast asymmetry in the lateral breast at middle depth on the CC view - Left breast asymmetry in the medial breast at middle depth on the CC view COMPARISON: Comparison made to multiple prior, most recent screening mammogram on March 24, 2005, and most remote March 13, 2018. TECHNIQUE: Digital breast tomosynthesis is performed in full field ML 90 degrees views along with computer-aided detection (CAD). Synthesized 2D images are generated from the tomosynthesis. Spot compression tomosynthesis images were also obtained. FINDINGS: BREAST COMPOSITION: The breasts are heterogeneously dense, which may obscure small masses (ACR BI-RADS breast composition Category c). RIGHT BREAST: Previously described it focal asymmetry correlates with a 2.0 cm mass located in the lower inner quadrant centered at approximately 2.5 cm from the nipple. Targeted ultrasound of the right breast was performed at the location of the mammographic finding. Survey shows a 2.4 x 1.1 x 1.9 cm solid appearing mass at 4 o'clock position retroareolar position. No internal vascularity demonstrated with color Doppler evaluation. LEFT BREAST: - Previously described asymmetry in the upper breast is identified measuring approximately 1.2 cm at about 7 cm from the nipple, with probable correlate on the CC view located in the lateral breast at 7.5 cm from the nipple. Targeted ultrasound of the left breast was performed at the location of the mammographic finding. The survey shows a 1.4 x 0.9 x 1.1 cm simple cyst at 2 o'clock position 7 cm from the nipple. No abnormal vascularity demonstrated with color Doppler evaluation. - Previously described asymmetry in the lateral breast, centered at approximately 6.5 cm from the nipple is pliable with spot compression. In this same area, there is an approximately 0.8 cm oval mass. Targeted ultrasound was performed at the location of the mammographic finding. The survey shows a 0.7 x 0.4 x 0.5 cm simple cyst at 2 o'clock position 5 cm from the nipple. No suspicious sonographic findings seen in the vicinity. No abnormal vascularity is demonstrated with color Doppler evaluation. - Previously described asymmetry in the medial breast is redemonstrated on today's images, centered at approximately 5.5 cm from the nipple and correlates with the location of the grouped calcifications that has been described in 2018. The correlating finding on the ML 90 degrees is located along the retroareolar plane at about 3.0 cm from the nipple. Targeted ultrasound of the left breast was performed at the location of the mammographic finding. The survey centered at 8-10 o'clock position did not reveal suspicious mammographic findings. US/US breast BI limited mamm only IMPRESSION: RIGHT BREAST: Solid-appearing 2.4 cm mass at 4 o'clock retroareolar position correlates with the mammographic finding. Suspicious findings. Ultrasound-guided needle core biopsy recommended. LEFT BREAST: 1. Simple cysts at 2 o'clock position 7 cm from the nipple and at 2 o'clock position 5 cm from the nipple. Benign findings. No dedicated imaging follow-up needed. 2. Focal asymmetry correlating with the location of grouped calcifications described in 2018 at approximately 9 o'clock position middle depth. No suspicious sonographic correlate. Probably benign. A 6-month follow-up mammogram is recommended. ASSESSMENT: BI-RADS 4 - Suspicious finding RECOMMENDATION: Biopsy recommended Results were discussed with the patient at time of visit with the help of a it programmer analyst on the phone. This patient's information was entered into a reminder system with a target due date for their next mammogram. Electronically signed by: Yovani Schmidt MD 04/29/2025 09:24 AM EDT Dictated By: Yovani Schmidt MD Signed By: <Electronically signed by Yovani Schmidt MD in OV> 04/29/25 0924 DD/ 0716 TD/TT: 04/29/25 0814 Spring Machine Operator: us Fifi Rodriguez NP IMG US PROCEDURES Final Result * BI Mammogram Diagnostic Tomosynthesis added bilateral (04/29/2025 7:12 AM EDT) Anatomical Region Laterality Modality Breast Left Mammography 04/29/2025 7:12 AM EDT Narrative 04/29/2025 9:28 AM EDT [facility] [address] [place] [address] Mammography Report Signed Patient: Naina Wayne MR#: [id number] : 1975 Acct:[id number] Age/Sex: 49 / F ADM Date: 04/29/25 Loc: HO.MAMMO Attending Dr: Fifi Rodriguez NP Ordering Physician: Fifi Rodriguez NP Results: 4Suspic ious Finding Date of Service: 04/29/25 Follow Up: Biopsy Recommend ed Procedure(s): MM tomosynthesis added view Accession Number(s): [id number] cc: Fifi Rodriguez NP EXAMINATIONS: 1. MM DIAGNOSTIC DIGITAL BREAST TOMOSYNTHESIS, BILATERAL 2. Targeted ultrasound of the right breast 3. Targeted ultrasound of the left breast CLINICAL INFORMATION: Call back for abnormal findings in bilateral breasts: - Right breast focal asymmetry in the lower quadrant anterior depth - Left breast asymmetry in the upper breast middle depth on MLO view - Left breast asymmetry in the lateral breast at middle depth on the CC view - Left breast asymmetry in the medial breast at middle depth on the CC view COMPARISON: Comparison made to multiple prior, most recent screening mammogram on March 24, 2005, and most remote March 13, 2018. TECHNIQUE: Digital breast tomosynthesis is performed in full field ML 90 degrees views along with computer-aided detection (CAD). Synthesized 2D images are generated from the tomosynthesis. Spot compression tomosynthesis images were also obtained. FINDINGS: BREAST COMPOSITION: The breasts are heterogeneously dense, which may obscure small masses (ACR BI-RADS breast composition Category c). RIGHT BREAST: Previously described it focal asymmetry correlates with a 2.0 cm mass located in the lower inner quadrant centered at approximately 2.5 cm from the nipple. Targeted ultrasound of the right breast was performed at the location of the mammographic finding. Survey shows a 2.4 x 1.1 x 1.9 cm solid appearing mass at 4 o'clock position retroareolar position. No internal vascularity demonstrated with color Doppler evaluation. LEFT BREAST: - Previously described asymmetry in the upper breast is identified measuring approximately 1.2 cm at about 7 cm from the nipple, with probable correlate on the CC view located in the lateral breast at 7.5 cm from the nipple. Targeted ultrasound of the left breast was performed at the location of the mammographic finding. The survey shows a 1.4 x 0.9 x 1.1 cm simple cyst at 2 o'clock position 7 cm from the nipple. No abnormal vascularity demonstrated with color Doppler evaluation. - Previously described asymmetry in the lateral breast, centered at approximately 6.5 cm from the nipple is pliable with spot compression. In this same area, there is an approximately 0.8 cm oval mass. Targeted ultrasound was performed at the location of the mammographic finding. The survey shows a 0.7 x 0.4 x 0.5 cm simple cyst at 2 o'clock position 5 cm from the nipple. No suspicious sonographic findings seen in the vicinity. No abnormal vascularity is demonstrated with color Doppler evaluation. - Previously described asymmetry in the medial breast is redemonstrated on today's images, centered at approximately 5.5 cm from the nipple and correlates with the location of the grouped calcifications that has been described in 2018. The correlating finding on the ML 90 degrees is located along the retroareolar plane at about 3.0 cm from the nipple. Targeted ultrasound of the left breast was performed at the location of the mammographic finding. The survey centered at 8-10 o'clock position did not reveal suspicious mammographic findings. MM/MM tomosynthesis added view BI IMPRESSION: RIGHT BREAST: Solid-appearing 2.4 cm mass at 4 o'clock retroareolar position correlates with the mammographic finding. Suspicious findings. Ultrasound-guided needle core biopsy recommended. LEFT BREAST: 1. Simple cysts at 2 o'clock position 7 cm from the nipple and at 2 o'clock position 5 cm from the nipple. Benign findings. No dedicated imaging follow-up needed. 2. Focal asymmetry correlating with the location of grouped calcifications described in 2018 at approximately 9 o'clock position middle depth. No suspicious sonographic correlate. Probably benign. A 6-month follow-up mammogram is recommended. ASSESSMENT: BI-RADS 4 - Suspicious finding RECOMMENDATION: Biopsy recommended Results were discussed with the patient at time of visit with the help of a it programmer analyst on the phone. This patient's information was entered into a reminder system with a target due date for their next mammogram. Electronically signed by: Yovani Schmidt MD 04/29/2025 09:24 AM EDT Dictated By: Yovani Schmidt MD Signed By: <Electronically signed by Yovani Schmidt MD in OV> 04/29/2524 DD/ 1 TD/TT: 04/29/2536 Spring Machine Operator: Procedure Note Donotuseinterpreter, Image - 04/29/2025 [facility] [address] [place] [address] Mammography Report Signed Patient: Naina Wayne#: [id number] : 1975Acct:[id number] Age/Sex: 49 / FADM Date: 04/29/25 Loc: HO.MAMMO Attending Dr: Fifi Rodriguez BATCH TRUCKER Ordering Physician: Fifi Rodriguez NPResults: 4Suspic ious Finding Date of Service: 04/29/25Follow Up: Biopsy Recommend ed Procedure(s): MM tomosynthesis added view BI Accession Number(s): [id number] cc: Fifi Rodriguez BATCH TRUCKER EXAMINATIONS: 1. MM DIAGNOSTIC DIGITAL BREAST TOMOSYNTHESIS, BILATERAL 2. Targeted ultrasound of the right breast 3. Targeted ultrasound of the left breast CLINICAL INFORMATION: Call back for abnormal findings in bilateral breasts: - Right breast focal asymmetry in the lower quadrant anterior depth - Left breast asymmetry in the upper breast middle depth on MLO view - Left breast asymmetry in the lateral breast at middle depth on the CC view - Left breast asymmetry in the medial breast at middle depth on the CC view COMPARISON: Comparison made to multiple prior, most recent screening mammogram on March 24, 2005, and most remote March 13, 2018. TECHNIQUE: Digital breast tomosynthesis is performed in full field ML 90 degrees views along with computer-aided detection (CAD). Synthesized 2D images are generated from the tomosynthesis. Spot compression tomosynthesis images were also obtained. FINDINGS: BREAST COMPOSITION: The breasts are heterogeneously dense, which may obscure small masses (ACR BI-RADS breast composition Category c). RIGHT BREAST: Previously described it focal asymmetry correlates with a 2.0 cm mass located in the lower inner quadrant centered at approximately 2.5 cm from the nipple. Targeted ultrasound of the right breast was performed at the location of the mammographic finding. Survey shows a 2.4 x 1.1 x 1.9 cm solid appearing mass at 4 o'clock position retroareolar position. No internal vascularity demonstrated with color Doppler evaluation. LEFT BREAST: - Previously described asymmetry in the upper breast is identified measuring approximately 1.2 cm at about 7 cm from the nipple, with probable correlate on the CC view located in the lateral breast at 7.5 cm from the nipple. Targeted ultrasound of the left breast was performed at the location of the mammographic finding. The survey shows a 1.4 x 0.9 x 1.1 cm simple cyst at 2 o'clock position 7 cm from the nipple. No abnormal vascularity demonstrated with color Doppler evaluation. - Previously described asymmetry in the lateral breast, centered at approximately 6.5 cm from the nipple is pliable with spot compression. In this same area, there is an approximately 0.8 cm oval mass. Targeted ultrasound was performed at the location of the mammographic finding. The survey shows a 0.7 x 0.4 x 0.5 cm simple cyst at 2 o'clock position 5 cm from the nipple. No suspicious sonographic findings seen in the vicinity. No abnormal vascularity is demonstrated with color Doppler evaluation. - Previously described asymmetry in the medial breast is redemonstrated on today's images, centered at approximately 5.5 cm from the nipple and correlates with the location of the grouped calcifications that has been described in 2018. The correlating finding on the ML 90 degrees is located along the retroareolar plane at about 3.0 cm from the nipple. Targeted ultrasound of the left breast was performed at the location of the mammographic finding. The survey centered at 8-10 o'clock position did not reveal suspicious mammographic findings. MM/MM tomosynthesis added view BI IMPRESSION: RIGHT BREAST: Solid-appearing 2.4 cm mass at 4 o'clock retroareolar position correlates with the mammographic finding. Suspicious findings. Ultrasound-guided needle core biopsy recommended. LEFT BREAST: 1. Simple cysts at 2 o'clock position 7 cm from the nipple and at 2 o'clock position 5 cm from the nipple. Benign findings. No dedicated imaging follow-up needed. 2. Focal asymmetry correlating with the location of grouped calcifications described in 2018 at approximately 9 o'clock position middle depth. No suspicious sonographic correlate. Probably benign. A 6-month follow-up mammogram is recommended. ASSESSMENT: BI-RADS 4 - Suspicious finding RECOMMENDATION: Biopsy recommended Results were discussed with the patient at time of visit with the help of a it programmer analyst on the phone. This patient's information was entered into a reminder system with a target due date for their next mammogram. Electronically signed by: Yovani Schmidt MD 04/29/2025 09:24 AM EDT Dictated By: Yovani Schmidt MD Signed By: <Electronically signed by Yovani Schmidt MD in OV> 04/29/25 0924 DD/ 0712 TD/TT: 04/29/25 0736 Spring Machine Operator: Fifi Rodriguez NP IMG BI PROCEDURES Final Result * BI Mammogram Screening Tomosynthesis Bilateral (03/24/2025 1:11 PM EDT) Anatomical Region Laterality Modality Breast Bilateral Mammography 03/24/2025 1:11 PM EDT Narrative 03/26/2025 2:37 PM EDT [facility] [address] [place] [address] Dr. [place], [place] [address] Mammography Report Signed Patient: Naina Wayne MR#: [id number] : 1975 Acct:[id number] Age/Sex: 49 / F ADM Date: 03/24/25 Loc: HO.MAMMO Attending Dr: Fifi Rodriguez NP Ordering Physician: Fifi Rodriguez NP Results: 0Incomp lete: Needs Additional Imaging Evaluation Date of Service: 03/24/25 Follow Up: Additional Imagi ng Procedure(s): MM tomosynthesis screening BI Accession Number(s): [id number] cc: MichaelFifi B BATCH TRUCKER EXAMINATION: MM SCREENING DIGITAL BREAST TOMOSYNTHESIS, BILATERAL CLINICAL INFORMATION: Screening. Asymptomatic. COMPARISON: Mammography: Comparison is made with available priors TECHNIQUE: Digital breast mammography with tomosynthesis is performed in both the craniocaudal and mediolateral oblique views along with computer-aided detection (CAD). FINDINGS: The breasts are heterogeneously dense, which may obscure small masses (ACR BI-RADS breast composition Category c). Bilateral circumscribed oval masses which wax and wane consistent with benign fibrocystic changes. Some were demonstrated to be simple cysts on prior ultrasound. Right: Focal asymmetry lower inner breast anterior depth. No suspicious calcifications or other abnormal findings. Left: Asymmetry superior breast middle depth on MLO view. Asymmetries middle depth lateral breast and medial breast on CC view. No suspicious calcifications. MM/MM tomosynthesis screening BI IMPRESSION: Additional imaging is recommended ASSESSMENT: BI-RADS BI-RADS 0 - Incomplete: Needs additional Imaging. RECOMMENDATION: 1. Additional views of the bilateral breasts. 2. Targeted ultrasound if warranted after review of the additional views. 3. Radiology department staff will contact the patient for additional imaging. Additional Imaging required This examination should not preclude the clinical evaluation of a suspicious palpable abnormality. This patient's information was entered into a reminder system with a target due date for their next mammogram. Electronically signed by: Yeny Aguirre DO 03/26/2025 02:35 PM EDT Dictated By: Yeny Aguirre DO Signed By: <Electronically signed by Yeny Aguirre DO in OV> 03/26/25 1435 DD/ 1311 TD/TT: 03/24/25 1333 Spring Machine Operator: Procedure Note Donotuseinterpreter, Image - 03/26/2025 [facility] [address] [place] [address] Mammography Report Signed Patient: Naina WayneMR#: [id number] : 1975Acct:[id number] Age/Sex: 49 / FADM Date: 03/24/25 Loc: HO.MAMMO Attending Dr: Fifi Rodriguez BATCH TRUCKER Ordering Physician: Fifi Rodriguez NPResults: 0Incomp lete: Needs Additional Imaging Evaluation Date of Service: 03/24/25Follow Up: Additional Imagi ng Procedure(s): MM tomosynthesis screening BI Accession Number(s): [id number] cc: Fifi Rodriguez BATCH TRUCKER EXAMINATION: MM SCREENING DIGITAL BREAST TOMOSYNTHESIS, BILATERAL CLINICAL INFORMATION: Screening. Asymptomatic. COMPARISON: Mammography: Comparison is made with available priors TECHNIQUE: Digital breast mammography with tomosynthesis is performed in both the craniocaudal and mediolateral oblique views along with computer-aided detection (CAD). FINDINGS: The breasts are heterogeneously dense, which may obscure small masses (ACR BI-RADS breast composition Category c). Bilateral circumscribed oval masses which wax and wane consistent with benign fibrocystic changes. Some were demonstrated to be simple cysts on prior ultrasound. Right: Focal asymmetry lower inner breast anterior depth. No suspicious calcifications or other abnormal findings. Left: Asymmetry superior breast middle depth on MLO view. Asymmetries middle depth lateral breast and medial breast on CC view. No suspicious calcifications. MM/MM tomosynthesis screening BI IMPRESSION: Additional imaging is recommended ASSESSMENT: BI-RADS BI-RADS 0 - Incomplete: Needs additional Imaging. RECOMMENDATION: 1. Additional views of the bilateral breasts. 2. Targeted ultrasound if warranted after review of the additional views. 3. Radiology department staff will contact the patient for additional imaging. Additional Imaging required This examination should not preclude the clinical evaluation of a suspicious palpable abnormality. This patient's information was entered into a reminder system with a target due date for their next mammogram. Electronically signed by: Yeny Aguirre DO 03/26/2025 02:35 PM EDT Dictated By: Yeny Aguirre DO Signed By: <Electronically signed by Yeny Aguirre DO in OV> 03/26/25 1435 DD/ 1311 TD/TT: 03/24/25 1333 Spring Machine Operator: Fifi Rodriguez BATCH TRUCKER IMG BI PROCEDURES Edited Result - Final * (ABNORMAL) Pap with NG,CT,Trich (01/05/2024 11:10 AM EDT) Trichomonas (NAAT) DETECTED(A) NOT DETECTED [facility] Comment:The analytical perfo rmance characteristics of thisassay have been determined by [employer]. Themodifications have not been cleared or approved bythe FDA. This assay has been validated pursuant to theIA regulations and is used for clinical purposes.For additional information, please refer tohttp://education.Newtricious/faq/Trichomonastma(This link is being provided for information/educational purposes only.)THIS TEST WAS PERFORMED AT:[facility] [place] [id number] COBIAN MD CTNG Ref Lab NOT DETECTED NOT DETECTED [facility] NG Ref Lab NOT DETECTED NOT DETECTED [facility] Pap Vial Vaginal structure / Unknown 01/05/2024 11:10 AM EDT 01/06/2024 9:54 AM EDT Narrative [facility] - 01/09/2024 2:54 PM EDT Was previous PAP abnormal? NoClinical Information: HysterectomyCollection Date: [id number] by: IVANIA Little: Vagina Fifi Rodriguez NP LAB CYTOLOGY ORDERABLES Final Re sult [facility] [address] [place] [phone] * HPV mRNA E6/E7 w/Reflex to HPV Genotypes 16, 18/45 (01/05/2024 11:10 AM EDT) HPV nRNA E6/E7 Not Detected Not Detected [facility] Comment:Methodology: Transcr iption-Mediated AmplificationThis assay detects E6/E7 viral messenger RNA (mRNA) from 14high-risk HPV types (16,18,31,33,35,39,45,51,52,56,58,59,66,68).Cervical sources are required for HPV testing.If a vaginal source from a patient who has had atotal hysterectomy with removal of cervix wassubmitted, please contact the testing laboratoryfor alternative testing options.For additional information, please refer tohttp://education.Newtricious/faq/XKZ217f1(This link if provided for information/educational purposes only.)THIS TEST WAS PERFORMED AT:[facility] [place] [id number] COBIAN MD HPV mRNA E6/E7 [facility] HPV 16 RNA [facility] HPV 18/45 RNA [facility] 01/05/2024 11:1 0 AM EDT 01/06/2024 7:30 AM EDT us Fifi Rodriguez NP LAB CYTOLOGY ORDERABLES Final Re sult [facility] [address] [place] [address] [phone] * (ABNORMAL) LIPID PANEL, STANDARD (02/01/2022 8:43 AM EDT) Chol/HDLC Ratio 3.7 <5.0 (calc) [facility] Cholesterol, Total 219(H) <200 mg/dL [facility] HDL Cholesterol 59 > OR = 50 mg/dL [facility] LDL Cholesterol 132(H) mg/dL (calc) [facility] Comment: Reference range: <100 Desirable range <100 mg/dL for primary prevention; <70 mg/dL for patients with CHD or diabetic patients with > or = 2 CHD risk factors. LDL-C is now calculated using the Keaton-Moises calculation, which is a validated novel method providing better accuracy than the Friedewald equation in the estimation of LDL-C. Keaton BUTLER et al. SRIDEVI. 2013;310(19): 9282-1006 (http://education.Teralynk/faq/IUU631) Non-HDL Cholesterol 160(H) <130 mg/dL (calc) [facility] Comment: For patients with diabetes plus 1 major ASCVD risk factor, treating to a non-HDL-C goal of <100 mg/dL (LDL-C of <70 mg/dL) is considered a therapeutic option. Triglycerides 150(H) <150 mg/dL [facility] 02/01/2022 8:43 AM EDT us Luis Alberto Reece MD LAB BLOOD ORDERABLES Final R esult [facility] [address] [place] [address], from Last 3 Months or Most Recently Relevant to Health Maintenance Insurance Care Teams Java Application Developer Relationship Specialty Start Date End Date Fifi Rodriguez NP [address] [place] [address] PCP - General Family Medicine 10/13/23 Pearl Cm, DomingoD [address] [place] [address] Pharmacist Internal Medicine 04/29/24
--- OUTSIDE RECORDS SUMMARY | 2025-05-17 09:20 | XMS_ITS | Encounter Summary ---
Author Organization [employer] Address [address] [facility] 7t [place] [address] Care Team Providers Care Packaging Line Attendant Name Role Phone Fifi Rodriguez INTERPRETER AND TRANSLATOR Primary Care Provider [phone] Pearl Cm PharmD Unavailable [phone] Reason for Visit * Reason Comments Med Refill Encounter Details Date Type Department Care Team (Late st Contact Info) Description 09/15/2024 Refill [facility] [address] [place] [address] Fifi Rodriguez NP [address] [place] [address] Concussion without loss of consciousness, subsequent encounter [...] Description 06/03/2025 1:00 PM EDT Procedure Visit [facility] [address] [place] [address] Fifi Rodriguez NP [address] [place] [address] documented as of this encounter Goals Goal [...] documented as of this encounter Care Teams Packaging Line Attendant Relationship Specialty Start Date End Date Fifi Rodriguez NP [address] [place] [address] PCP - General Family Medicine 10/13/23 Pearl Cm, PharmD [address] [place] [address] Pharmacist Internal Medicine 04/29/24 documented as of this encounter
--- OUTSIDE RECORDS SUMMARY | 2025-05-17 09:20 | XMS_ITS | Encounter Summary ---
Author Organization [employer] Address [address] [place] [address] 7t [place] [address] Care Team Providers Care Implementation Analyst Name Role Phone Angela Trimble Primary Care Provider [phone] Fifi Rodriguez NP Primary Care Provider [phone] Pearl Cm PharmD Unavailable [phone] Reason for Visit * Reason Onset Date Comments call back 12/16/2022 Encounter Details Date Type Department Care Team ([facility] st Contact Info) Description 12/16/2022 Telephone [facility] [address] [place], [place] [phone] Angela Trimble FNP [address] [place], [place] [phone] call back Social History Tobacco Use Types [...] updated for PCP. Hospital summary: Admitted to [facility] from 11/02/22-11/06/22 when she presented as a [...] follow up with trauma in 1-2 weeks. Remedy [employer] workers had difficulty reaching pt. Multiple calls [...] APPT with psychiatrist. Please contact pt at [phone] * Telephone Encounter - Pete Jose Alejandro - 12/16/2022 9:19 AM EDT Tc from pt requesting a call back from [place], pt stated front office manager called pt and booked an physiatristappt to be via televisit and the appt was in person. Please contact pt at [phone] documented in this encounter Plan of Treatment Upcoming Encounters Date Type Department Care Team ([facility] st Contact Info) Description 06/03/2025 1:00 PM EDT Procedure Visit [facility] [address] [place] [address] Fifi Rodriguez, PERFORMANCE ENGINEER [address] [place] [address] documented as of this encounter Visit Diagnoses Not on filedocumented in this encounter Care Teams Implementation Analyst Relationship Specialty Start Date End Date Angela Trimble FNP [address] [place] [address] PCP - General Family Medicine 08/12/22 10/12/23 Fifi Rodriguez, ERIC [address] [place] [address] PCP - General Family Medicine 10/13/23 Pearl Cm PharmD [address] [place] [address] Pharmacist Internal Medicine 04/29/24 documented as of this encounter
--- OUTSIDE RECORDS SUMMARY | 2025-05-17 09:20 | XMS_ITS | Encounter Summary ---
Author Organization [employer] Address [address] [place] [address] 7t [place] [address] Care Team Providers Care Bridges Supervisor Name Role Phone Angela Trimble Primary Care Provider [phone] Fifi Rodriguez NP Primary Care Provider [phone] Pearl Cm PharmD Unavailable [phone] Reason for Visit * Reason Onset Date Comments Appointment Request 10/07/2023 Encounter Details Date Type Department Care Team ([facility] Contact Info) Description 10/07/2023 Telephone [facility] [address] [place], [place] [phone] Angela Trimble FNP [address] [place], [place] [phone] Appointment Request Social History Tobacco Use Types [...] from pt requesting PE appt with PCP, sign writer hand attempted to schedule, no availability. Please contact pt in [place] documented in this encounter Plan of Treatment Upcoming Encounters Date Type Department Care Team (Late st Contact Info) Description 06/03/2025 1:00 PM EDT Procedure Visit [facility] [address] [place] [address] Fifi Rodriguez, ERIC [address] [place] [address] documented as of this encounter Visit Diagnoses Not on filedocumented in this encounter Care Teams Bridges Supervisor Relationship Specialty Start Date End Date Angela Trimble FNP [address] [place] [address] PCP - General Family Medicine 08/12/22 10/12/23 Fifi Rodriguez NP [address] [place] [address] PCP - General Family Medicine 10/13/23 Pearl Cm, Lauren [address] [place] [phone] Pharmacist Internal Medicine 04/29/24 documented as of this encounter
--- OUTSIDE RECORDS SUMMARY | 2025-05-17 09:20 | XMS_ITS | Encounter Summary ---
Author Organization [employer] Address [address] [facility] 7t [place] [address] Care Team Providers Care Industrial Hygiene Technician Name Role Phone Michael Fifi ERIC Primary Care Provider [phone] Pearl Cm PharmD Unavailable [phone] Encounter Details Date Type Department Care Team (Latest Contact Info) Description 03/28/2025 Results Follow-Up [facility] [address] [place], [place] [phone] Carol Macias MD 230 [place] [address] BI Mammogram Screening Tomosynthesis Bilateral Social History Tobacco Use Types Packs/Day Years [...] housing situation today? I have marshal hernandez 01/25/[address] you li [...] the past 12 months, has t he [employer], gas, oil or water company threatened to [...] Description 06/03/2025 1:00 PM EDT Procedure Visit [facility] [address] [place] [address] Fifi Rodriguez NP [address] [place] [address] documented as of this encounter Goals Goal Patient Goal Type Associated Problems Recent Progress Patient-Stated? Author Quit using tobacco (cigarettes, smokeless, etc) Tobacco Use No Pearl Cm, PharmD documented as of this encounter Visit Diagnoses Not on filedocumented in this encounter Additional Health Concerns Assessment Noted Time PHQ-9 Depression Total Score: 13 024 10:25 AM EST documented as of this encounter Care Teams Industrial Hygiene Technician Relationship Specialty Start Date End Date Fifi Rodriguez NP [address] [place] [address] PCP - General Family Medicine 10/13/23 Pearl Cm, PharmD [address] [place] [address] Pharmacist Internal Medicine 04/29/24 documented as of this encounter
--- OUTSIDE RECORDS SUMMARY | 2025-05-17 09:20 | XMS_ITS | Encounter Summary ---
Author Organization [employer] Address 75 [facility] 7t [place] [address] Care Team Providers Care Hairspring Setter Name Role Phone Fifi Rodriguez BELLMAN Primary Care Provider [phone] Pearl Cm PharmD Unavailable [phone] Reason for Visit * Reason Onset Date Comments Nurse Triage 03/29/2024 Encounter Details Date Type Department Care Team ([facility] st Contact Info) Description 03/29/2024 Telephone [facility] [address] [place] [address] Fifi Rodriguez NP [address] [place] [address] Nurse Triage Social History Tobacco Use Types [...] Miscellaneous Notes * Telephone Encounter - Elizabeth GoldsteinSHALOM - 03/29/2024 2:46 PM EDT Triage call returned to patient with [employer] Food Taster [phone]. Patient reports that she is havingleft leg [...] agreement with plan. Will seek evaluation at [facility] ED tomorrow as cant go today . [...] Back Pain (Adult) Protocol-Based Disposition: Go to ED/[facility] Now (or to Office with PCP Approval) [...] Reason: Can't walk (unless normally can't walk) Dutch Speaker (Accepted Food Taster) documented in this encounter Plan of Treatment Upcoming Encounters Date Type Department Care Team (Late st Contact Info) Description 06/03/2025 1:00 PM EDT Procedure Visit [facility] [address] [place] [address] Fifi Rodriguez NP [address] [place] [address] documented as of this encounter Visit Diagnoses Not on filedocumented in this encounter Care Teams Hairspring Setter Relationship Specialty Start Date End Date Fifi Rodriguez NP [address] [place] [address] PCP - General Family Medicine 10/13/23 Pearl Cm PharmD [address] [place] [address] Pharmacist Internal Medicine 04/29/24 documented as of this encounter
--- OUTSIDE RECORDS SUMMARY | 2025-05-17 09:20 | XMS_ITS | Encounter Summary ---
Author Organization [employer] Address [address] [facility] 7t [place] [address] Care Team Providers Care Processing Associate Name Role Phone Fifi Rodriguez NP Primary Care Provider [phone] Pearl Cm PharmD Unavailable [phone] Encounter Details Date Type Department Care Team ([facility] st Contact Info) Description 08/06/[address] [facility] [address] [place], [place] [phone] Fifi Rodriguez NP [address] [place] [address] Cervicogenic headache (Primary Dx) Social History Tobacco [...] Description 06/03/2025 1:00 PM EDT Procedure Visit [facility] [address] [place] [address] Fifi Rodriguez NP [address] [place] [address] documented as of this encounter Goals Goal [...] documented as of this encounter Care Teams Processing Associate Relationship Specialty Start Date End Date Fifi Rodriguez NP [address] [place] [address] PCP - General Family Medicine 10/13/23 Pearl Cm, DomingoD [address] [place] [address] Pharmacist Internal Medicine 04/29/24 documented as of this encounter
--- OUTSIDE RECORDS SUMMARY | 2025-05-17 09:20 | XMS_ITS | Clinical Summary ---
Author Organization [facility] Address [address] [place] [address] Care Team Providers Care Human Resources Professional Name Role Phone Unavailable Primary Care Provider Unavailabl e Social History Tobacco Use Types Packs/Day Years Used Date Smoking Tobacco: Every Day Cigarettes 0.5 28.7 Started: 09/15/1996 Smokeless Tobacco: Never Alcohol Use [...] 08/18/2022 Social Influencers of Health Screening 08/18/2022 Depression Screening 09/15/2024 COVID-19 Vaccine (2023-2 5 season) 2025 Influenza Vaccine (#1) 2025 HIB Vaccines Aged [...]
--- OUTSIDE RECORDS SUMMARY | 2025-05-17 09:20 | XMS_ITS | Patient Health Record ---
Author Organization [facility] Address [address] [place] [address] Care Team Providers Care Crate Liner Name Role Phone CYNTHIA CAMPBELL Primary Care Provider David Huerta Unavailable [phone] Reason For Referral Referring Provider First Name CYNTHIA Referring Provider Last Name ADRIAN Referred Organization [facility] Referred Provider David Valencia Referred Address [address],[place],[address], Referred Provider Specialty Gastroentero logy General Notes Leah Laboy 2024 11:30:15 AM > requested a [facility] referral from [facility] for visit with Dr. 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 Plan Of Treatment Future Test Test Name Order Date UPPER GI ENDOSCOPY 08/19/2017 Next Appt Details Provider Name:David Valencia , 05/31/2025 11:10:00 AM, [address] [place] [address], [address], [place], [address], Insurance Providers Payer Name Payer Address Payer Phone Subscriber Number Group Number Insured Name Patient Relationship to Insured Coverage Start Date Coverage End Date MEDICAID OF [employer] [address] [place] [address] [id number] MEGHAN GUERRERO Self - patient is the insured Medical (General) History Medical History History ICD Code Hypertension Uterine cancer--surgery as below Positive serology for helico bacter pylori 05/12/2017--reportedy treated with antibiotics GERD 02/07/2017 Denies [place],DM,CVA,renal disease Asthma Urinary bladder problems--has an implant [...]
== END 2025-05-17 09:03 | disposition home or self-care (01) ==
LOC: HO.HGS 08:38
PROVIDERS: PCP Nurse Practitioner Family; Visit Provider Surgery
DX: R92.8 Other abnormal and inconclusive findings on diagnostic imaging of breast (principal)
CPT/HCPCS: 99213

== ENCOUNTER → 2025-05-17 08:37 | Outpatient (BNVA) | payer MEDICAID, SELFPAY | PROVIDERS: PCP Nurse Practitioner Family; Visit Provider Surgery | DX: Z71.2 Person consulting for explanation of examination or test findings (principal); N60.31 Fibrosclerosis of right breast; N64.81 Ptosis of breast; R92.8 Other abnormal and inconclusive findings on diagnostic imaging of breast | CPT/HCPCS: 99212 ==

== ENCOUNTER 2025-09-01 18:07 | Outpatient (REF) | payer MEDICAID, SELFPAY ==
--- OUTSIDE RECORDS SUMMARY | 2025-08-26 04:30 | XMS_ITS ---
Author Organization [facility] Address [address] [place] [address] Care Team Providers Care Svp Programmatic Tv Name Role Phone CYNTHIA CAMPBELL Primary Care Provider David Huerta [phone] REASON FOR VISIT epigastric pain,gerd ,screening Encounters Encounter Location Date Provider Diagnosis [facility] Outpatient [address] [place] [address] [phone] 08/26/2025 David Valencia Plan Of Treatment No Information Progress Notes * MEGHAN GUERRERODOB:[birth year] (49 yo F)Acc No.[id number]:08/26/2025 EGD and COL/MAC Patient: MEGHAN CHAVEZ Provider: Santana Valencia MD :1975 A ge:49 Y S ex:Female Date:08/26/2025 Address:[address] [facility] [address], [id number] Pcp:CYNTHIA CAMPBELL Subjective: * Chief Complaints: * E pigastric pain,gerd ,screening Billing Information: * Procedure Codes: * The named appointment provid er may or may not be the originator of this progress note, and it is not deemed complete until electronically signed by the appointment provider. Sign off status: Pending * Provider: Santana Valencia MD Date: 1 10/27/2024 Generated for Celinai ng/Faxing/eTransmitting on: 11/02/2024 05:07 PM EST
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
--- OUTSIDE RECORDS SUMMARY | 2025-09-01 19:53 | XMS_ITS | Clinical Summary ---
Author Organization [employer] Address [address] [facility] 7t [place] [address] Care Team Providers Care Abrasive Band Winder Name Role Phone HarshaFifi howard ERIC Primary Care Provider [phone] Pearl Cm PharmD Unavailable [phone] Allergies Active Allergy Reactions Criticality Noted Date [...] mouth Once per day. 90 tablet 1 5 8:39 AM EST 11/05/19 25 Active cyclobenzaprine (Flexeril) 10 MG tabletIndications: Low back pain associated with a spinal disorder other than radiculopathy or spinal stenosis Take 1 tablet (10 mg) by mouth if needed at bedtime for muscle spasms. 30 tablet 11/05/19 25 Active lidocaine (Lidoderm) 5 % patchIndications:A cute bilateral low back pain without sciatica,Mid back pain on right side APPLY 1 PATCH TOPICALLY TO SKIN, LEAVE ON FOR 12 HOURS AND OFF FOR 12 HOURS DIRECTED 30 patch 2 11/30/19 25 Active tiotropium (Spiriva HandiHaler) 18 MCG [...] MORNING 90 tablet 1 05/03/20 25 Active propranolol LA (Inderal LA) 160 MG 24 hr capsule TAKE 1 CAPSULE BY MOUTH ONCE DAILY DO NOT BREAK, CRUSH, DISSOLVE OR CHEW 90 capsule 1 07/25/20 25 Active atorvastatin (Lipitor) 80 MG tablet TAKE 1 TABLET BY MOUTH AT BEDTIME 90 tablet 5 8:39 AM EST 07/29/20 25 Active Ventolin HFA 108 (90 Base) MCG/ACT inhalerIndications :Mild intermittent asthma, unspecified whether complicated INHALE 2 PUFFS BY MOUTH EVERY 4 TO 6 HOURS NEEDED FOR WHEEZING OR SHORTNESS OF BREATH 18 g 3 5 8:30 AM EST 08/08/20 25 Active Advair Diskus 100-50 MCG/ACT aerosol powderIndications: Mild intermittent asthma, unspecified whether complicated INHALE 1 PUFF TWICE DAILY. RINSE MOUTH AFTER USING. 60 each 2 5 8:30 AM EST 08/22/20 25 Active albuterol 108 (90 Base) MCG/ACT inhalerIndications :Mild intermittent asthma, unspecified whether complicated Inhale 2 puffs Every 4-6 hours as needed for shortness of breath or wheezing. 18 g 3 5 3:22 PM EST 11/05/19 25 2024 Discontinued Advair Diskus 100-50 MCG/ACT aerosol powderIndications: Mild intermittent asthma, unspecified whether complicated Inhale 1 puff 2 times daily. 60 each 2 5 8:39 AM EST 11/05/19 25 2024 Discontinued Active Problems Patient Care Coordination [...] no skin breaks nor induration -referred to SCIENCE CONSULTANT to f up Mixed hyperlipidemia 01/21/2023 Assessment [...] of the ACR Incidental Findings Committee (JACR 2017;14:[id number]). Assessment & Plan (02/22/2025 12:21 PM EDT): [...] Encounters Date Type Department Care Team Description 09/01/2025 9:00 AM EST Office Visit [facility] MEDICINE [address] [place] [address] Ginna Garcia CNM Screening examination for venereal disease (Primary Dx); Tear of labium, sequela 09/01/2025 Travel 08/31/[address] [address] Ginna Garcia CNM chart prep 08/24/[address] [facility] WALK-IN CENTER [address] [place] [address] Mireille Kevin MA 08/20/[address] [facility] MEDICINE [address] [place] [address] Fifi Rodriguez NP Mild intermittent asthma, unspecified whether complicated 08/07/[address] [facility] MEDICINE [address] [place] [address] Fifi Rodriguez NP Mild intermittent asthma, unspecified whether complicated 08/03/2025 11:15 AM EST Office Visit [address] [address] Sadia Fabian NP 08/03/2025 Travel 08/02/[address] [address] Fifi Rodriguez NP CHARTPREP 08/02/[address] [address] Fifi Rodriguez NP Nurse Triage 07/28/[address] [facility] MEDICINE [address] [place] [address] Fifi Rodriguez NP 07/24/[address] [facility] MEDICINE [address] [place] [address] Fifi Rodriguez NP from Last 3 Months Immunizations Immunization Administration [...] (186 lb) 09/01/2025 8:57 AM EST Height 157.5 cm (5' 2 ) 08/03/2025 11:44 AM EST Body Mass Index 34.02 08/03/2025 11:44 AM EST Plan of Treatment Upcoming Encounters Date Type Department Care Team (Late st Contact Info) Description 09/13/2025 2:30 PM EST Office Visit [facility] MEDICINE [address] [place] [address] Fifi Rodriguez NP [address] [place] [address] Health Maintenance Due Date Last Done Comments [...] Depression Monitoring 05/05/2025 11/05/2024, 024 COVID-19 Vaccine (1 - season) 2025 Influenza Vaccine (#1) 2025 8, 04/30/2018, 08/21/2017 SDOH Screening 01/25/2026 01/25/2025 Alcohol/Substance Use Screening 09/01/2026 09/01/2025 Disability Screening 09/01/2026 09/01/2025 Tobacco Screening 09/01/2026 09/01/2025 Zoster Vaccines (1 of 2) 2026 HPV/Cotest 01/04/2027 01/05/2024, 02/14, 03/11/2018 Pap Smear 01/04/2027 01/05/2024, 01/05/2024 Lipid Panel 02/01/2027 02/01/2022, 09/15, 06/02/2020 Mammogram 05/09/2027 05/09/2025, 04/16, 04/29/2025, Additional history exists RSV Patients and Patients [...] etc) Tobacco Use No Piers-Siegel , Pearl, Lauren Procedures Procedure Name Priority Date/Time Associated Diagnosis Comments BI MAMMOGRAM DIAGNOSTIC RIGHT Routine 05/09/2025 10:22 AM EDT HPV MRNA E6/E7 REFLEX TO HPV 16, 18/45 Routine 01/05/2024 11:10 AM EDT IMAGE-GUIDED PAP W/AGE BASED SCR,W/CT/NG/TRICH Routine 01/05/2024 11:10 AM EDT Cervical cancer screening LIPID PANEL, STANDARD Routine 02/01/2022 8:43 AM EDT from Last 3 Months or Most Recently Relevant to Health Maintenance Results * Mammogram Diagnostic Right (05/09/2025 10:22 AM EDT) Anatomical Region Laterality Modality Breast Right Mammography 05/09/2025 10:2 2 AM EDT Narrative 05/09/2025 12:02 PM EDT [facility] [address] [place] [address] Mammography Report Signed with Addenda Patient: Naina Wayne MR#: [id number] : 1975 Acct:[id number] Age/Sex: 49 / F ADM Date: 05/09/25 Loc: HO.MAMMO Attending Dr: Fifi Rodriguez SAWDUST MACHINE OPERATOR Ordering Physician: Fifi Rodriguez NP Results: 2Benign Findings Date of Service: 05/09/25 Follow Up: 1 Year From Orig ina Mammogram Procedure(s): MM diagnostic mammo unilat RT Accession Number(s): [id number] cc: Fifi Rodriguez SAWDUST MACHINE OPERATOR ADDENDUM ADDENDUM #1 ADDENDUM: Pathology results are as follows: Breast, right mass at 4:00, biopsy: Cores of benign breast tissue with dense stromal fibrosis, consistent with pseudoangiomatosis stromal hyperplasia; no atypia or malignancy identified. Pathology results are benign and concordant with imaging findings. Clinical observation is recommended. Otherwise, patient may return to routine screening mammogram. OVERALL ASSESSMENT: BI-RADS 2 - Benign Findings RECOMMENDATION: 1. Patient should be managed based on the clinical impression. 2. Otherwise, routine annual screening mammography. Electronically signed by: Yovani Schmidt MD 05/17/2025 01:21 PM EDT Addendum Dictated By: Yovani Schmidt MD Addendum Signed By: <Electronically signed by Yovani Schmidt MD in OV> 05/17/25 1321 Addendum Cosigned By: DD/ TD/TT: 05/09/25 PROCEDURE/EXAMINATION: 1. ULTRASOUND GUIDED NEEDLE CORE BIOPSY [...] alternatives, with the help of the certified security system technician in the room. Patient was given an [...] 05/09/25 1159 DD/ 1022 TD/TT: 05/09/25 1130 Remanufacturing Technician: Procedure Note Donotuseinterpreter, Image - 05/17/2025 [facility]'s [address] [place] [address] Mammography Report Signed with Addenda Patient: Naina Wayne#: [id number] : 1975Acct:[id number] Age/Sex: 49 / FADM Date: 05/09/25 Loc: HO.MAMMO Attending Dr: Fifi Rodriguez NP Ordering Physician: Fifi Rodriguez NPResults: 2Benign Findings Date of Service: 05/09/25Follow Up: 1 Year From Orig [facility] Mammogram Procedure(s): MM diagnostic mammo unilat RT Accession Number(s): [id number] cc: Fifi Rodriguez SAWDUST MACHINE OPERATOR ADDENDUM ADDENDUM #1 ADDENDUM: Pathology results are as follows: Breast, right mass at 4:00, biopsy: Cores of benign breast tissue with dense stromal fibrosis, consistent with pseudoangiomatosis stromal hyperplasia; no atypia or malignancy identified. Pathology results are benign and concordant with imaging findings. Clinical observation is recommended. Otherwise, patient may return to routine screening mammogram. OVERALL ASSESSMENT: BI-RADS 2 - Benign Findings RECOMMENDATION: 1. Patient should be managed based on the clinical impression. 2. Otherwise, routine annual screening mammography. Electronically signed by: Yovani Schmidt MD 05/17/2025 01:21 PM EDT RP Addendum Dictated By: Yovani Schmidt MD Addendum Signed By: <Electronically signed by MD Yinka in OV> 05/17/25 1321 Addendum Cosigned By: DD/ TD/TT: 05/09/25 PROCEDURE/EXAMINATION: 1. ULTRASOUND GUIDED NEEDLE CORE BIOPSY [...] alternatives, with the help of the certified security system technician in the room. Patient was given an [...] Schmidt MD 05/09/2025 11:59 AM EDT RP Dictated By: Yovani Schmidt MD Signed By: <Electronically signed by Yovani Schmidt MD in OV> 05/09/25 1159 DD/ 1022 TD/TT: 05/09/25 1130 Remanufacturing Technician: us Fifi Rodriguez NP IMG BI PROCEDURES Edited Result - Final * (ABNORMAL) Pap with NG,CT,Trich (01/05/2024 11:10 AM EDT) Pathologist [facility] Trichomonas (NAAT) DETECTED(A) NOT DETECTED [facility] Comment:The analytical perfo rmance characteristics of thisassay have been determined by [employer]. Themodifications have not been cleared or approved bythe FDA. This assay has been validated pursuant to theCLIA regulations and is used for clinical purposes.For additional information, please refer tohttp://education.[employer]/faq/Trichomonastma(This link is being provided for information/educational purposes only.)THIS TEST WAS PERFORMED AT:[facility] [place] [phone] COBIAN MD CTNG Ref Lab NOT DETECTED NOT DETECTED [facility] NG Ref Lab NOT DETECTED NOT DETECTED [facility] Pap Vial Vaginal structure / Unknown 01/05/2024 11:10 AM EDT 01/06/2024 9:54 AM EDT Narrative [facility] - 01/09/2024 2:54 PM EDT Was previous PAP abnormal? NoClinical Information: HysterectomyCollection Date: [id number] by: IVANIA RIVASSource: Vagina us Fifi Rodriguez NP LAB CYTOLOGY ORDERABLES Final Re sult [facility] [address] [place] [phone] [phone] * HPV mRNA E6/E7 w/Reflex to HPV Genotypes 16, 18/45 (01/05/2024 11:10 AM EDT) Pathologist [facility] HPV nRNA E6/E7 Not Detected Not Detected [facility] Comment:Methodology: Transcr iption-Mediated AmplificationThis assay detects E6/E7 viral messenger RNA (mRNA) from 14high-risk HPV types (16,18,31,33,35,39,45,51,52,56,58,59,66,68).Cervical sources are required for HPV testing.If a vaginal source from a patient who has had atotal hysterectomy with removal of cervix wassubmitted, please contact the testing laboratoryfor alternative testing options.For additional information, please refer tohttp://education.[employer]/faq/CHL303z5(This link if provided for information/educational purposes only.)THIS TEST WAS PERFORMED AT:[facility] [place] [phone] COBIAN MD HPV mRNA E6/E7 TNP [facility] HPV 16 RNA [facility] HPV 18/45 RNA [facility] 01/05/2024 11:1 0 AM EDT 01/06/2024 7:30 AM EDT Fifi Rodriguez NP LAB CYTOLOGY ORDERABLES Final Re sult [facility] [address] [place] [phone] * (ABNORMAL) LIPID PANEL, STANDARD (02/01/2022 8:43 AM EDT) Pathologist [facility] Chol/HDLC Ratio 3.7 <5.0 (calc) [facility] factors. LDL-C is now calculated using the Keaton-De Leon calculation, which is a validated novel method providing better accuracy than the Friedewald equation in the estimation of LDL-C. Keaton SS et al. SRIDEVI. 2013;310(19): 0776-6539 (http://education.[employer].com/faq/MQL443) Non-HDL Cholesterol 160(H) <130 mg/dL (calc) [facility] Comment: For patients with diabetes plus 1 major ASCVD risk factor, treating to a non-HDL-C goal of <100 mg/dL (LDL-C of <70 mg/dL) is considered a therapeutic option. Triglycerides 150(H) <150 mg/dL [facility] 02/01/2022 8:43 AM EDT Luis Alberto Reece MD LAB BLOOD ORDERABLES Final R esult [facility] [address] [place] [address], from Last 3 Months or Most Recently Relevant to Health Maintenance Insurance SAFCell C3 SAFCell C3 Care Teams Abrasive Band Winder Relationship Specialty Start Date End Date Fifi Rodriguez NP [address] [place] [address] PCP - General Family Medicine 10/13/23 Pearl Cm, DomingoD [address] [place] [address] Pharmacist Internal Medicine 04/29/24
--- OUTSIDE RECORDS SUMMARY | 2025-09-01 19:53 | XMS_ITS | Encounter Summary ---
Author Organization [employer] Address [address] [facility] 7t [place] [address] Care Team Providers Care Leather Dresser Name Role Phone HarshaFifi howard ERIC Primary Care Provider [phone] Pearl Cm PharmD Unavailable [phone] Reason for Visit * Reason Onset Date Comments chart prep 08/31/2025 Encounter Details Date Type Department Care Team ([facility] st Contact Info) Description 08/31/[address] [facility] MEDICINE [address] [place] [address] Ginna Garcia CNM [address] [place] [address] chart prep Social History Tobacco Use Types Packs/Day Years [...] encounter Miscellaneous Notes * Telephone Encounter - Veronica Ugalde [place] - 08/31/2025 3:54 PM EST ..Chart Prep Labs: not applicable Images: not applicable Vaccines due: Covid Due, Hep B Due, PCV20 Due, and Flu Due Referrals: Not Applicable Screenings: LMP Overdue care gaps: PHQ9 and GAD7 documented in this encounter Plan of Treatment Upcoming Encounters Date Type Department Care Team (Late st Contact Info) Description 09/13/2025 2:30 PM EST Office Visit [facility] MEDICINE [address] [place] [address] Fifi Rodriguez NP [address] [place] [address] documented as of this encounter Goals Goal Patient Goal Type Associated Problems Recent Progress Patient-Stated? Author Quit using tobacco (cigarettes, smokeless, etc) Tobacco Use No Piers-Siegel , Pearl, PharmD documented as of this encounter Visit Diagnoses Not on filedocumented in this encounter Additional Health Concerns Assessment Noted Time PHQ-9 Depression Total Score: 13 024 10:25 AM EST documented as of this encounter Care Teams Leather Dresser Relationship Specialty Start Date End Date Fifi Rodriguez NP [address] [place] [address] PCP - General Family Medicine 10/13/23 Pearl Cm, Lauren [address] [place] [address] Pharmacist Internal Medicine 04/29/24 documented as of this encounter
--- OUTSIDE RECORDS SUMMARY | 2025-09-01 19:53 | XMS_ITS | Encounter Summary ---
Author Organization [employer] Address [address] [facility] 7t [place] [address] Care Team Providers Care Bitumen Plant Operator Name Role Phone Angela Trimble Primary Care Provider [phone] Fifi Rodriguez NP Primary Care Provider [phone] Pearl Cm PharmD Unavailable [phone] Reason for Visit * Reason Onset Date Comments Appointment Request 10/07/2023 Encounter Details Date Type Department Care Team ([facility] st Contact Info) Description 10/07/2023 Telephone [facility] MEDICINE [address] [place] [address] Angela Trimble FNP [address] [place] [address] Appointment Request Social History Tobacco Use Types [...] from pt requesting PE appt with PCP, ad copy writer attempted to schedule, no availability. Please contact pt in bengali documented in this encounter Plan of Treatment Upcoming Encounters Date Type Department Care Team (Late st Contact Info) Description 09/13/2025 2:30 PM EST Office Visit [facility] MEDICINE [address] [place] [address] Fifi Rodriguez NP [address] [place] [address] documented as of this encounter Visit Diagnoses Not on filedocumented in this encounter Care Teams Bitumen Plant Operator Relationship Specialty Start Date End Date Angela Trimble FNP [address] [place] [address] PCP - General Family Medicine 08/12/22 10/12/23 Fifi Rodriguez NP [address] [place] [address] PCP - General Family Medicine 10/13/23 Pearl Cm PharmD [address] [place] [address] Pharmacist Internal Medicine 04/29/24 documented as of this encounter
--- OUTSIDE RECORDS SUMMARY | 2025-09-01 19:53 | XMS_ITS | Clinical Summary ---
Author Organization [facility] Address [address] [place] [address] Care Team Providers Care Roofing Sales Representative Name Role Phone Unavailable Primary Care Provider Unavailabl e Social History Tobacco Use Types Packs/Day Years Used Date Smoking Tobacco: Every Day Cigarettes 0.5 29 Started: 09/15/1996 Smokeless Tobacco: Never Alcohol Use Standard Drinks/Week Comments Not Currently 0 (1 standard drink = 0.6 oz pur e alcohol) Comments Unknown Sex and Gender Information Value Date Recorded Sex Assigned at Not on file Legal Sex Female 8:28 AM EST Gender Identity Not on file Sexual Orientation Not on file Plan of Treatment Health Maintenance Due Date Last Done Comments Breast Cancer Screening 1975 Colorectal Cancer Screening: Colonoscopy 1975 DTaP,Tdap,and Td Vaccines (1 - Tdap) 11/22/1995 Hepatitis B Vaccines (1 of 3 - 19+ 3-dose series) 11/22/1995 Pneumococcal Vaccine: Pediat rics (0 to 5 Years) and At-Risk Patients (6 to 49 Years) (1 of 2 - PCV) 11/22/1995 Cervical Cancer Screening: P ap Smear 1997 HIV Screening 08/18/2022 Hepatitis C Screening 08/18/2022 Social Influencers of Health Screening 08/18/2022 Depression Screening 09/15/2024 COVID-19 Vaccine (1 - 2024-2 6 season) 2025 Influenza Vaccine (#1) 2025 RSV Immunization Adult Patie nts (1 - 1-dose 75+ series) 11/22/2051 HIB [...]
--- OUTSIDE RECORDS SUMMARY | 2025-09-01 19:53 | XMS_ITS | Encounter Summary ---
Author Organization [employer] Address [address] [facility] 7t [place] [address] Care Team Providers Care Mail Censor Name Role Phone Ffii Rodriguez NP Primary Care Provider [phone] Pearl Cm PharmD Unavailable [phone] Reason for Visit * Reason Onset Date Comments Nurse Triage 03/29/2024 Encounter Details Date Type Department Care Team ([facility] st Contact Info) Description 03/29/2024 Telephone [facility] MEDICINE [address] [place], [place] [phone] Fifi Rodriguez NP [address] [place] [address] Nurse Triage Social History Tobacco Use Types [...] Miscellaneous Notes * Telephone Encounter - Elizabeth Goldstein LPN - 03/29/2024 2:46 PM EDT Triage call returned to patient with Lane Laundry Clerk [id number]. Patient reports that she is havingleft leg [...] agreement with plan. Will seek evaluation at [facility] tomorrow as cant go today . [...] Reason: Can't walk (unless normally can't walk) Austrian Speaker (Accepted Laundry Clerk) documented in this encounter Plan of Treatment Upcoming Encounters Date Type Department Care Team (Late st Contact Info) Description 09/13/2025 2:30 PM EST Office Visit [facility] MEDICINE [address] [place] [address] Fifi Rodriguez NP [address] [place] [address] documented as of this encounter Visit Diagnoses Not on filedocumented in this encounter Care Teams Mail Censor Relationship Specialty Start Date End Date Fifi Rodriguez NP [address] [place] [address] PCP - General Family Medicine 10/13/23 Pearl Cm PharmD [address] [place] [address] Pharmacist Internal Medicine 04/29/24 documented as of this encounter
--- OUTSIDE RECORDS SUMMARY | 2025-09-01 19:53 | XMS_ITS | Encounter Summary ---
Author Organization [employer] Address [address] [facility] 7t [place] [address] Care Team Providers Care Bandage Winding Machine Operator Name Role Phone Fifi Rodriguez ERIC Primary Care Provider [phone] Pearl Cm PharmD Unavailable [phone] Encounter Details Date Type Department Care Team (Latest Contact Info) Description 09/01/2025 Travel Social History Tobacco Use Types Packs/Day Years [...] AM EDT documented as of this encounter Functional Status * Over the [...] A Trouble relaxing 3 09/01/2025 9:21 AM Mireille Harmon MA Being so restless that it is hard to sit still 3 09/01/2025 9:21 AM Mireille Bautista M A Becoming easily annoyed or irritable 3 08/15 9:21 AM Mireille Bautista MA Feeling afraid as if somethi ng awful might happen 3 09/01/2025 9:21 AM Mireille Bautista M A MOY-7 Total Score 21 09/01/2025 9:21 AM Mireille Bautista MA documented as of this encounter Plan of Treatment Upcoming Encounters Date Type Department Care Team (Late st Contact Info) Description 09/13/2025 2:30 PM EST Office Visit [facility] MEDICINE [address] [place] [address] Fifi Rodriguez NP [address] [place] [address] documented as of this encounter Goals Goal Patient Goal Type Associated Problems Recent Progress Patient-Stated? Author Quit using tobacco (cigarettes, smokeless, etc) Tobacco Use No Pearl Cm, Lauren documented as of this encounter Visit Diagnoses Not on filedocumented in this encounter Additional Health Concerns Assessment Noted Time PHQ-9 Depression Total Score: 13 024 10:25 AM EST documented as of this encounter Care Teams Bandage Winding Machine Operator Relationship Specialty Start Date End Date Fifi Rodriguez NP [address] [place] [address] PCP - General Family Medicine 10/13/23 Pearl Cm PharmD [address] [place] [address] Pharmacist Internal Medicine 04/29/24 documented as of this encounter
--- OUTSIDE RECORDS SUMMARY | 2025-09-01 19:53 | XMS_ITS | Encounter Summary ---
Author Organization [employer] Address [address] [facility] 7t [place] [address] Care Team Providers Care Smoke Jumper Name Role Phone Fifi Rodriguez NP Primary Care Provider [phone] Pearl Cm PharmD Unavailable [phone] Encounter Details Date Type Department Care Team ([facility] st Contact Info) Description 08/06/2024 Orders Only [facility] MED[facility]INE [address] [place] [address] Fifi Rodriguez NP [address] [place] [address] Cervicogenic headache (Primary Dx) Social History Tobacco [...] Description 09/13/2025 2:30 PM EST Office Visit [facility] [address] [place] [address] Fifi Rodriguez NP [address] [place] [address] documented as of this encounter Goals Goal [...] documented as of this encounter Care Teams Smoke Jumper Relationship Specialty Start Date End Date Fifi Rodriguez NP [address] [place] [address] PCP - General Family Medicine 10/13/23 Pearl Cm PharmD [address] [place] [address] Pharmacist Internal Medicine 04/29/24 documented as of this encounter
--- OUTSIDE RECORDS SUMMARY | 2025-09-01 19:53 | XMS_ITS | Encounter Summary ---
Author Organization [employer] Address [address] [place] [address] [address] [place] [address] Care Team Providers Care Basic Sciences Professor Name Role Phone Angela Trimble Primary Care Provider [phone] Fifi Rodriguez NP Primary Care Provider [phone] Pearl Cm PharmD Unavailable [phone] Reason for Visit * Reason Onset Date Comments call back 12/16/2022 Encounter Details Date Type Department Care Team (Late st Contact Info) Description 12/16/2022 Telephone [facility] [address] [place] [address] Angela Trimble FNP [address] [place] [address] call back Social History Tobacco Use Types [...] MD - 12/26/2022 9:40 AM EDT Naina Tariq Danish FYI. Patient no showed to hosptial follow up. PCP is Angela Trimble CNP. This is second hospital no show for patient. Chart reviewed and summarized below for PCP. Problem list updated for PCP. Hospital summary: Admitted to [facility] from 11/02/22-11/06/22 when she presented as [...] follow up with trauma in 1-2 weeks. [employer] workers had difficulty reaching pt. Multiple calls [...] APPT with psychiatrist. Please contact pt at [phone] * Telephone Encounter - Pete Jose Alejandro - 12/16/2022 9:19 AM EDT Tc from pt requesting a call back from [place], pt stated front desk monitor called pt and booked an physiatristappt to be via televisit and the appt was in person. Please contact pt at [phone] documented in this encounter Plan of Treatment Upcoming Encounters Date Type Department Care Team (Late st Contact Info) Description 09/13/2025 2:30 PM EST Office Visit [facility] [address] [place] [address] Fifi Rodriguez, ERIC [address] [place] [address] documented as of this encounter Visit Diagnoses Not on filedocumented in this encounter Care Teams Basic Sciences Professor Relationship Specialty Start Date End Date Angela Trimble FNP [address] [place] [phone] PCP - General Family Medicine 08/12/22 10/12/23 Fifi Rodriguez, ERIC [address] [place] [phone] PCP - General Family Medicine 10/13/23 Pearl Cm PharmD [address] [place] [phone] Pharmacist Internal Medicine 04/29/24 documented as of this encounter
--- OUTSIDE RECORDS SUMMARY | 2025-09-01 19:53 | XMS_ITS | Encounter Summary ---
Author Organization [employer] Address [address] [facility] [address] [place] [address] Care Team Providers Care Environmental Conservation Officer Name Role Phone Fifi Rodriguez NP Primary Care Provider [phone] Pearl Cm PharmD Unavailable [phone] Reason for Visit * Reason Comments Med Refill Encounter Details Date Type Department Care Team (Late st Contact Info) Description 09/15/2024 Refill [facility] [address] [place] [address] Fifi Rodriguez NP [address] [place] [address] Concussion without loss of consciousness, subsequent encounter [...] Description 09/13/2025 2:30 PM EST Office Visit [facility] [address] [place] [address] Fifi Rodriguez NP [address] [place] [address] documented as of this encounter Goals Goal [...] documented as of this encounter Care Teams Environmental Conservation Officer Relationship Specialty Start Date End Date Fifi Rodriguez NP [address] [place] [phone] PCP - General Family Medicine 10/13/23 Pearl Cm, PharmD [address] [place] [phone] Pharmacist Internal Medicine 04/29/24 documented as of this encounter
== END 2025-09-01 18:08 | disposition home or self-care (01) ==
LOC: HO.HHCLNP 18:07
PROVIDERS: Visit Provider Advanced Practice Midwife
DX: Z11.3 Encounter for screening for infections with a predominantly sexual mode of transmission (principal)
CPT/HCPCS: 87661